=== PATIENT | male | born 1960 | race Caucasian/White ===

== ENCOUNTER 2023-05-07 10:46 | Outpatient (OUT) | payer BC, SELFPAY ==
--- NOTE | 2023-05-07 11:18 | XR_ITS ---
[address] [address] Patient Name: CARMEN OSBORNE MRN: [id number] date: 1960 Sex: M Assigned Patient Location: LAB Current Patient Location: Accession/Order Number: [id number] Exam Date: 05/07/2023 11:15 Report Date: 05/08/2023 07:16 At the request of: JOSÉ MIGUEL CAMARENA Procedure: XR abdomen 1V EXAMINATION: XR abdomen 1V HISTORY: Kidney Stone N20.0 COMPARISON: No relevant comparison available. FINDINGS: KIDNEY/URETER - RIGHT: No visible renal or ureteral calcifications. KIDNEY/URETER - LEFT: 8mm left nephrolith PELVIS: No visible ureteral calcifications. Any visible calcifications favor phleboliths. BOWEL: No abnormal dilation or deviation. BONES: No acute abnormality. Degenerative changes of the spine and hips OTHER: Negative. No abnormal gaseous collections. XR/XR abdomen 1V IMPRESSION: 8 mm left nephrolith Electronically authenticated by: SHELLY NULL Date: 05/08/2023 07:16
[2023-05-07 12:48] LABS: Prostate Specific Antigen Dx 0.77 ng/mL (<=4.00)
== END 2023-05-07 10:47 | disposition home or self-care (01) ==
LOC: LAB 10:51
PROVIDERS: PCP Family Medicine; Visit Provider Urology
DX: N40.1 Benign prostatic hyperplasia with lower urinary tract symptoms (principal); N20.0 Calculus of kidney
CPT/HCPCS: 36415; 74018; 84153

== ENCOUNTER 2023-11-05 09:49 | Outpatient (OUT) | payer BC, SELFPAY ==
--- NOTE | 2023-11-05 09:54 | XR_ITS ---
The [place] [id number] Patient Name: CARMEN OSBORNE MRN: [id number] date: 1960 Sex: M Assigned Patient Location: [facility] Current Patient Location: [facility] Accession/Order Number: [id number] Exam Date: 11/05/2023 10:00 Report Date: 11/05/2023 12:43 At the request of: JOSÉ MIGUEL CAMARENA Procedure: XR abdomen 1V EXAM: XR abdomen 1V HISTORY: Kidney Stone N20.0 COMPARISON: None. TECHNIQUE: AP view of the abdomen. FINDINGS: Nonobstructive bowel gas pattern is noted. There are left renal calculi, largest measuring up to 5 mm. The osseous structures are intact. XR/XR abdomen 1V IMPRESSION: Nonobstructive bowel gas pattern. Left nephrolithiasis. Electronically authenticated by: OSEI JAIMES Date: 11/05/2023 12:43
== END 2023-11-05 09:50 | disposition home or self-care (01) ==
LOC: RAD 09:49
PROVIDERS: PCP Family Medicine; Visit Provider Urology
DX: N20.0 Calculus of kidney (principal)
CPT/HCPCS: 74018

== ENCOUNTER 2024-04-13 09:46 | Outpatient (OUT) | payer BC, SELFPAY ==
--- NOTE | 2024-04-13 | XR_ITS ---
[address] [address] Patient Name: CARMEN OSBORNE MRN: [id number] date: 1960 Sex: M Assigned Patient Location: [facility] Current Patient Location: Accession/Order Number: [id number] Exam Date: 04/13/2024 10:00 Report Date: 04/15/2024 08:59 At the request of: NON-STAFF PHYSICIAN Procedure: XR abdomen 1V EXAMINATION: XR abdomen 1V HISTORY: kidney stone COMPARISON: 11/05/2023 FINDINGS: KIDNEY/URETER - RIGHT: No visible renal or ureteral calcifications. KIDNEY/URETER - LEFT: Nephrolithiasis PELVIS: No visible ureteral calcifications. Any visible calcifications favor phleboliths. BOWEL: No abnormal dilation or deviation. BONES: Mild to moderate degenerative change OTHER: Negative. No abnormal gaseous collections. XR/XR abdomen 1V IMPRESSION: Left nephrolithiasis Electronically authenticated by: SHELLY NULL Date: 04/15/2024 08:59
== END 2024-04-13 09:47 | disposition home or self-care (01) ==
LOC: RAD 09:50
PROVIDERS: PCP Family Medicine
DX: N20.0 Calculus of kidney (principal)
CPT/HCPCS: 74018

== ENCOUNTER 2024-06-11 12:36 | Outpatient (OUT) | payer BC, SELFPAY ==
--- NOTE | 2024-06-11 12:54 | ECG_ITS ---
The [facility] Test Date: 2024-06-11 Pat Name: CARMEN OSBORNE Department: Room: - Gender: Male Typer: : 1960 Requested By: JOSÉ MIGUEL CAMARENA Order Number: [id number] Reading MD: ELIZA PÉREZ Measurements Intervals [place] Rate: 59 P: 32 OR: 193 QRS: -6 QRSD: 87 T: 28 QT: 384 QTc: 381 Interpretive Statements SINUS BRADYCARDIA MODERATE VOLTAGE CRITERIA FOR LVH, CONSIDER NORMAL VARIANT [MEETS CRITERIA IN ONE OF: R(aVL), S(V1), R(V5), R(V5/V6)+S(V1)] Compared to ECG 01/08/2023 15:20:47 Ventricular premature complex(es) no longer present Electronically Signed On 06-11-2024 22:29:20 EDT by EILZA PÉREZ
[2024-06-11 13:50] LABS: BUN Creatinine Ratio 23.1; Calcium 8.8 mg/dL (8.5-10.1); Carbon Dioxide 25.8 mmol/L (21.0-32.0); Chloride 106 mmol/L (98-107); Estimated GFR (African America >60 (>=60 mL/min/1.73m^2); Estimated GFR (Non-African Ame >60 (>=60 mL/min/1.73m^2); Glucose 156 mg/dL (74-106); Potassium 3.8 mmol/L (3.5-5.1); Sodium 141 mmol/L (136-145)
[2024-06-11 14:01] LABS: Basophils Percent Auto 0.5 % (0.2-2.0); Eosinophils Absolute Auto 0.1 10^3/uL (0.0-0.7); Eosinophils Percent Auto 2.1 % (0.9-7.0); Hematocrit 38.7 % (42.0-54.0); Hemoglobin 12.9 g/dL (14.0-18.0); Immature Granulocytes Abs Auto 0.01 10^3/uL (0.00-0.03); Immature Granulocytes Pct Auto 0.2 % (0.0-0.5); Lymphocytes Absolute Auto 1.3 10^3/uL (1.2-3.8); Lymphocytes Percent Auto 23.5 % (20.5-60.0); Mean Corpuscular HGB Conc 33.3 g/dL (29.9-35.2); Mean Corpuscular Hemoglobin 30.4 pg (25.9-34.0); Mean Corpuscular Volume 91.1 fL (80.0-94.0); Mean Platelet Volume 9.1 fL (9.5-13.5); Monocytes Absolute Auto 0.4 10^3/uL (0.3-0.8); Monocytes Percent Auto 6.6 % (1.7-12.0); Neutrophils Absolute Auto 3.8 10^3/uL (1.4-6.5); Neutrophils Percent Auto 67.1 % (43.0-75.0); Platelet Count 165 10^3/uL (150-450); Red Blood Count 4.25 10^6/uL (4.70-6.10); Red Cell Distribution Width 12.5 % (11.0-15.0); White Blood Count 5.6 10^3/uL (4.0-11.0)
[2024-06-11 14:07] LABS: INR 1.01; Partial Thromboplastin Time 27.3 sec (22.3-36.2); Prothrombin Time 10.7 sec (9.0-11.6)
== END 2024-06-11 12:37 | disposition home or self-care (01) ==
LOC: PST 12:38
PROVIDERS: PCP Family Medicine; Visit Provider Urology
DX: Z01.810 Encounter for preprocedural cardiovascular examination (principal); Z01.812 Encounter for preprocedural laboratory examination; N20.0 Calculus of kidney
CPT/HCPCS: 36415; 80048; 85025; 85610; 85730; 93005

== ENCOUNTER 2024-06-12 10:16 | Day surgery (SDC) | payer BC, SELFPAY ==
[2024-06-11 13:19] VITALS: BP 134/72; PULSE 73; TEMP 36.2; O2SAT 95; BMI 30.8
[2024-06-12] VITALS (15 sets, daily range): BP systolic 102–121; BP diastolic 63–79; PULSE 53–74; TEMP 36.1–36.4; O2SAT 89–96; BMI 30.1
--- NOTE | 2024-06-12 | FL_ITS ---
The [address] [address] Patient Name: CARMEN OSBORNE MRN: [id number] date: 1960 Sex: M Assigned Patient [facility] Current Patient Location: Accession/Order Number: [id number] Exam Date: 06/12/2024 11:55 Report Date: 06/16/2024 14:39 At the request of: JOSÉ MIGUEL CAMARENA Procedure: FL fluoroscopy <1hr NON-READ EXAM: FL fluoroscopy <1hr NON-READ HISTORY: TECHNIQUE: FINDINGS: Please see Operative Report. Electronically authenticated by: RADIOLOGIST NO Date: 06/16/2024 14:39
--- OUTSIDE RECORDS SUMMARY | 2024-06-12 10:19 | XMS_ITS | CCD ---
Author Organization [facility] Care Team Providers Care Stave Block Splitter Name Role Phone Anjel Rizzo Unavailable DO Noel Samayoa. Primary Care Provider MD aCrmen Cuello Emergency Provider Sebastián [facility] Regi Schumacher Emergency Provider DANITA, DR NOEL Howell Primary Care Unavailable SHANE ., DR VALDEZ Admitting Unavailable SHANE ., DR VALDEZ Consulting Unavailable SHANE ., DR VALDEZ Attending Unavailable TODD DUBOIS Consulting Unavailable DANITA, DR NOEL Howell Primary Care Unavailable SHNAE ., DR VALDEZ Admitting Unavailable MIGUE ., DR VALDEZ Attending Unavailable MD Arslan Shane Attending Provider DO Noel Samayoa. Primary Care Provider MD Arslan Shane Attending Provider [phone] DO Noel Samayoa. Primary Care Provider MD Arslan Shane Attending Provider Noel Samayoa Unavailable Noel Samayoa. Primary Care Unavailable Arslan Shane Attending Unavailable Arslan Shane Admitting Unavailable Arslan Shane Attending Unavailable Arslan Shane Admitting Unavailable Noel Samayoa. Primary Care Unavailable Arslan Shane Attending Unavailable Arslan Shane Admitting Unavailable Noel Samayoa. Primary Care Unavailable Carmen Cuello Attending Unavailable Carmen Cuello Admitting Unavailable Noel Samayoa. Primary Care Unavailable Noel Samayoa. Primary Care Unavailable Bullcharlotte Regi E Attending Unavailable Sebastián Regi E Admitting Unavailable Arslan SHANE Attending NOEL Tena Admitting Unavailable NOEL SAMAYOA Attending Unavailable Arslan SHANE Attending Unavailable Arslan SHANE Attending Unavailable Cj ZELAYA Attending Unavailable Arslan SHANE Attending Unavailable Allergies Allergy Classification Reported Allergen(s) Allergy Type Date of Onset Reaction(s) Facility (1 source) No Known Medication Allergies; Translations: [No Known Medication Allergies] Propensity to adverse reactions (disorder) [facility] Repository Medications Current Medications Medication Drug Class(es) Dates Sig (Normalized) Sig (Original) ibuprofen 200 mg oral tablet (1 source) Nonsteroidal Anti-inflammatory Drug Start: 06-02-2024 take 1 tablet by mouth every six hours Ibuprofen (Motrin Ib) 200 mg tablet Active 200 MG PO Every 6 hours June 02, 2024 12:00am ketorolac tromethamine 10 mg oral tablet (1 source) Nonsteroidal Anti-inflammatory Drug, Cyclooxygenase Inhibitor Start: 06-02-2024 take 10 mg by mouth every six hours Ketorolac Active 10 MG PO Every 6 hours 40 June 02, 2024 12:00am maximum total duration of 5 days from all oral, intranasal, or parenteral formulations Potassium Bicarb-Citric Acid (Klor-Con/Ef) 25 mEq tablet, effervescent (4 sources) Start: 06-18-2023 Potassium Bicarb-Citric Acid (Klor-Con/Ef) 25 mEq tablet, effervescent Active 25 MEQ PO Twice daily June 18, 2023 12:00am Shingrix 50 MCG (1 source) Start: 02-11-2021 inject 50 ug by intramuscular injection once Shingrix 50 MCG as directed Intramuscular once for 1 days Jan, Active Completed/Discontinued Medications Medication Drug Class(es) Dates Sig (Normalized) Sig (Original) acetaminophen 325 mg / HYDROcodone bitartrate 5 mg oral tablet (20 sources) Opioid Agonist Start: 02-09-2021 End: 06-18-2023 take 1 tablet by mouth every four to six hours Hydrocodone-Acetami nophen Discontinued 1 - 2 TAB PO EVERY 4-6 HOURS 14 12January 06, 2023 June 18, 2023 9:01am take 1 tablet by cam th every six hours HYDROcodone-Acetaminophen 5-325 MG 1 tab let as needed Orally every [address] Jain Active acetaminophen 325 mg / oxyCODONE hydrochloride 5 mg oral tablet (7 sources) Opioid Agonist Start: 01-06-2023 End: 06-18-2023 take 1 tablet by mouth every four to six hours Oxycodone-Acetaminophen (Percocet) 5-325 mg tablet Discontinued 1 - 2 TAB PO EVERY 4-6 HOURS 14 12January 06, 2023 June 18, 2023 9:01am cephalexin 500 mg oral capsule (7 sources) Cephalosporin Antibacterial Start: 01-06-2023 End: 06-18-2023 take 500 mg by mouth twice daily Cephalexin Discontinued 500 MG PO Twice daily 09 03January 06, 2023 12:00am June 18, 2023 9:01am levoFLOXacin 500 mg oral tablet (7 sources) Quinolone Antimicrobial Start: 02-16-2021 End: 01-06-2023 take 500 mg by mouth once daily Levofloxacin Discontinued 500 MG PO Daily 06 05February 16, 2021 12:00am January 06, 2023 3:49pm 24 hr oxybutynin chloride 10 mg extended release oral tablet (7 sources) Cholinergic Muscarinic Antagonist Start: 02-16-2021 End: 01-06-2023 take 1 tablet by mouth three times daily Oxybutynin Chloride (Ditropan Xl) 10 mg tablet extended release 24hr Discontinued 5 MG PO Three times daily February 16, 2021 12:00am January 06, 2023 3:49pm triamcinolone acetonide 40 mg/ml injectable suspension (1 source) Corticosteroid Start: 07-16-2023 Kenalog-40 Jun, 40 mg valACYclovir 500 mg oral tablet (8 sources) Herpesvirus Nucleoside Analog DNA Polymerase Inhibitor, Herpes Simplex Virus Nucleoside Analog DNA Polymerase Inhibitor, Herpes Zoster Virus Nucleoside Analog DNA Polymerase Inhibitor Start: 06-21-2010 End: 01-06-2023 take 500 mg by mouth once daily in the morning Valacyclovir Discontinued 500 MG PO Every morning February 09, 2021 12:00am January 06, 2023 3:49pm Problems Problem Classification Problem Date Documented Date Episodic/Chronic Abdominal pain (2 sources) Unspecified abdominal pain; Translations: [Abdominal pain, other specified site] Onset: 01-08-2023 06-02-2024 Episodic Calculus of urinary tract (14 sources) Ureteric stone; Translations: [Calculus of ureter] Onset: 01-06-2023 01-08-2023 Episodic Disorders of lipid metabolism (2 sources) Pure hypercholesterolemia ; Translations: [Pure hypercholesterolemia , unspecified] Chronic Hyperplasia of prostate (1 source) Benign prostatic hyperplasia with lower urinary tract symptoms; Translations: [BENIGN PROSTATIC HYPERPLASIA W/LUTS] Onset: 01-09-2023 Chronic Immunizations and screening for infectious disease (2 sources) Contact with and (suspected) exposure to other viral communicable diseases; Translations: [Encounter for immunization] Onset: 08-24-2021 Resolved: 08-24-2021 Episodic Joint disorders and dislocations; trauma-related (4 sources) Internal derangement of left knee; Translations: [Unspecified internal derangement of left knee] Chronic Miscellaneous mental health disorders (2 sources) Primary insomnia; Translations: [Primary insomnia] Chronic Other connective tissue disease (1 source) Olecranon bursitis, left elbow Episodic Other ear and sense organ disorders (2 sources) Bilateral tinnitus; Translations: [Tinnitus, bilateral] Episodic Residual codes; unclassified (2 sources) Sleep apnea; Translations: [Sleep apnea, unspecified] 02-04-2024 Chronic Residual codes; unclassified (1 source) Sleep apnea, unspecified; Translations: [Unspecified sleep apnea] 02-04-2024 Chronic Screening and history of mental health and substance abuse codes (1 source) Personal history of nicotine dependence; Translations: [PERSONAL HISTORY OF NICOTINE DEPEND] Onset: 01-09-2023 Episodic Unclassified (1 source) Encounter for preprocedural laboratory examination; Translations: [Encounter for preprocedural laboratory examination] Onset: 06-18-2023 Viral infection (2 sources) Genital herpes simplex; Translations: [Herpesviral infection of urogenital system, unspecified] Chronic Results Test Name Value Interpretation Reference Range Facility XR Abdomen 1 Viewon 06-05-20 24 XR Abdomen 1 View Exam Date/Time: 06/02/2024 10:12 EDT Reason for Exam: left flank pain Report IMPRESSION: Left renal calculus. EXAMINATION/TECHNIQUE: XR Abdomen 1 View HISTORY: Left-sided kidney stone. COMPARISON: CT 05/13/2018. Radiographs 04/30/2018. RESULT: Approximate 8 mm calculus projecting in the region of the left renal pelvis. No distinct calcifications radiographically projecting over the kidneys with portions of the renal shadows obscured. Multiple pelvic phleboliths, grossly unchanged. Nonspecific nondilated bowel gas pattern. Lung bases unremarkable. No acute osseous findings. No other significant abnormality. Ordering Provider: NOEL SAMAYOA FINAL REPORT Dictated: 06/05/2024 11:33 am Todd Nunez MD Signed (Electronic Signature): 06/05/2024 11:33 am Signed by: Todd Nunez MD Transcribed by: ROBERTA Technologist: TEENA Technical Comments Radiation Dose: Ka,r in mGy = na DAP = na Normal [facility] Provider Letteron 11-20-2023 Provider Letter (Inserted Image. Sweta ble to display) November 20, 2023 CARMEN JARAMILLO [address] [place] [address] : 1960 Dear Carmen Jaramillo , We have been trying to reach you with no success. It is important that you return our call regarding your recent imaging results upon receiving this letter. Also, at the time of your call, please provide us with your current information. Thank you for your prompt attention to this matter. Sincerely, [facility] [address] [place] [address] Normal [facility] RAD - MISCon 11-06-2023 [facility] [id number] Normal [facility] [id number] Normal [facility] [id number] Normal [facility] Ambulatory Visit Summaryon 0 10-29-2023 Ambulatory Visit Summary CARMEN JARAMILLO :1960 Visit Date:10/29/2023 Ambulatory Visit Instructions Your Diagnosis BPH with obstruction/lower urinary tract symptoms Kidney stone Tests Performed XR Abdomen 1 View -- Results Pending -- Please visit your patient portal for your results or contact your primary care physician. Your Care Team Attending Physician - Arslan SHANE MD Primary Care Physician - NOEL SAMAYOA DO This Is Your Medications List potassium bicarbonate (K-Effervescent 25 mEq oral tablet, effervescent) Procedures Performed ESWL of kidney (06/26/2023), Cystoscopic removal of ureteric stent (01/23/2023), Cystoscopic laser lithotripsy of ureteric calculus (01/11/2023), Cystoscopic removal of ureteric stent (01/08/2023), Cystoscopic removal of ureteric stent (02/24/2021), ESWL - Extracorporeal shockwave lithotripsy for renal calculus (02/16/2021), Cysto/Lt stent removal (02/23/2016), History of percutaneous nephrolithotomy (02/02/2016), ESWL of kidney, Procedure on knee. Discharge Vitals Heart Rate (Peripheral) 72 Respiratory Rate 16 Blood Pressure 122/82 Height 174 cm Height 69 in Weight 88.5 kg Weight 194.7 lb BMI 29.23 What to do next Scheduled Follow-Up Appointments Sunday. 2024 9:15 AM EDT With: Arslan SHANE MD Where: [facility] Patient Educationon 10-29-19 Patient Education Urology Benign Prostatic Hyperplasia Benign prostatic hyperplasia (BPH) is an enlarged prostate gland that is caused by the normal aging process. The prostate may get bigger as a man gets older. The condition is not caused by cancer. The prostate is a walnut-sized gland that is involved in the production of semen. It is located in front of the rectum and below the bladder. The bladder stores urine. The urethra carries stored urine out of the body. An enlarged prostate can press on the urethra. This can make it harder to pass urine. The buildup of urine in the bladder can cause infection. Back pressure and infection may progress to bladder damage and kidney (renal) failure. What are the causes? This condition is part of the normal aging process. However, not all men develop problems from this condition. If the prostate enlarges away from the urethra, urine flow will not be blocked. If it enlarges toward the urethra and compresses it, there will be problems passing urine. What increases the risk? This condition is more likely to develop in men older than 50 years. What are the signs or symptoms? Symptoms of this condition include: ? Getting up often during the night to urinate. ? Needing to urinate frequently during the day. ? Difficulty starting urine flow. ? Decrease in size and strength of your urine stream. ? Leaking (dribbling) after urinating. ? Inability to pass urine. This needs immediate treatment. ? Inability to completely empty your bladder. ? Pain when you pass urine. This is more common if there is also an infection. ? Urinary tract infection (UTI). How is this diagnosed? This condition is diagnosed based on your medical history, a physical exam, and your symptoms. Tests will also be done, such as: ? A post-void bladder scan. This measures any amount of urine that may remain in your bladder after you finish urinating. ? A digital rectal exam. In a rectal exam, your health care provider checks your prostate by putting a lubricated, gloved finger into your rectum to feel the back of your prostate gland. This exam detects the size of your gland and any abnormal lumps or growths. ? An exam of your urine (urinalysis). ? A prostate specific antigen (PSA) screening. This is a blood test used to screen for prostate cancer. ? An ultrasound. This test uses sound waves to electronically produce a picture of your prostate gland. Your health care provider may refer you to a specialist in kidney and prostate diseases (urologist). How is this treated? Once symptoms begin, your health care provider will monitor your condition (active surveillance or watchful waiting). Treatment for this condition will depend on the severity of your condition. Treatment may include: ? Observation and yearly exams. This may be the only treatment needed if your condition and symptoms are mild. ? Medicines to relieve your symptoms, including: ? Medicines to shrink the prostate. ? Medicines to relax the muscle of the prostate. ? Surgery in severe cases. Surgery may include: ? Prostatectomy. In this procedure, the prostate tissue is removed completely through an open incision or with a laparoscope or robotics. ? Transurethral resection of the prostate (TURP). In this procedure, a tool is inserted through the opening at the tip of the penis (urethra). It is used to cut away tissue of the inner core of the prostate. The pieces are removed through the same opening of the penis. This removes the blockage. ? Transurethral incision (TUIP). In this procedure, small cuts are made in the prostate. This lessens the prostate's pressure on the urethra. ? Transurethral microwave thermotherapy (TUMT). This procedure uses microwaves to create heat. The heat destroys and removes a small amount of prostate tissue. ? Transurethral needle ablation (TUNA). This procedure uses radio frequencies to destroy and remove a small amount of prostate tissue. ? Interstitial laser coagulation (ILC). This procedure uses a laser to destroy and remove a small amount of prostate tissue. ? Transurethral electrovaporization (TUVP). This procedure uses electrodes to destroy and remove a small amount of prostate tissue. ? Prostatic urethral lift. This procedure inserts an implant to push the lobes of the prostate away from the urethra. Follow these instructions at home: ? Take denh-xxc-ssulapf and prescription medicines only as told by your health care provider. ? Monitor your symptoms for any changes. Contact your health care provider with any changes. ? Avoid drinking large amounts of liquid before going to bed or out in public. ? Avoid or reduce how much caffeine or alcohol you drink. ? Give yourself time when you urinate. ? Keep all follow-up visits. This is important. Contact a health care provider if: ? You have unexplained back pain. ? Your symptoms do not get better with treatment. ? You develop side effects from the medicine (more content not included)... Normal [facility] Urology Office/Clinic Noteon 10-29-2023 Urology Office/Clinic Note Chief Complaint S/P ESWL 06/26/23 HPI Staff S/P Lt ESWL 06/26/23 Dx: kidney stone and BPH with obstruction/LUTS. *Potassium Bicarb 25meq BID therapy. PSA 05/07/23- 0.77 Did not get recent KUB. Denies flank pain. Denies symptoms of kidney stone since last procedure in May. Has not passed any stones. Denies pain/burning. Denies all urinary symptoms. No concerns at this time. History of Present Illness Tests Reviewed: Reviewed UA. I have reviewed and verified the staff HPI to be accurate for this encounter. I have reviewed the previous health record information and history for this patient from Dr. Shane There have been no associated fever, chills, flank pain, or blood in the urine. Denies any urinary infections since last encounter. Review of Systems PHQ Score Initial Depression Screen Score: 0 SCORE ROS - Provider Constitutional: denies weight loss, denies hot flashes. Eyes: denies eye problems. Gastrointestinal: denies nausea, denies vomiting. Cardiovascular: denies chest pain or angina. Integumentary: no dryness Musculoskeletal: denies musculoskeletal symptoms. ENMT: denies otolaryngeal symptoms. Respiratory: no shortness of breath. Heme/Lymph: denies easy bleeding tendency, denies easy bruising tendency. Psychiatric: no confusion, no anxiety. Genitourinary: denies dysuria, denies hematuria, denies discharge, denies urinary frequency, denies urinary hesitancy, denies nocturia, denies incontinence, denies genital sores, denies decreased libido, and denies erectile dysfunction. Physical Exam Vitals & Measurements HR: 72(Peripheral) RR: 16 BP: 122/82 HT: 69 in HT: 174 cm WT: 88.5 kg WT: 194.7 lb BMI: 29.23 General Appearance: alert, no distress, well nourished, well developed male. Genitourinary: normal scrotum, normal testes, normal urethra, normal epididymis, normal vas deferens/spermatic cord. Flank Pain: none. Bladder: nonpalpable. Prostate: normal prostate, estimated weight 35 gms, no hard nodule observed. Assessment/Plan 1. BPH with obstruction/lower urinary tract symptoms (N40.1: Benign prostatic hyperplasia with lower urinary tract symptoms) Good stream, patient not currently taking any prostate medications. UA done today is negative for infection. Patient denies any recent infections, feels empty, denies blood. PSA was done 05/07/23 0.77. 2. Kidney stone (N20.0: Calculus of kidney) No recent KUB done. Patient last had KUB done in 05/19/23 showing 8 mm left renal stone. He then had Left ESWL on 06/26/23. Effer K 25meq bid therapy. Discussed with patient again that he needs to increase his water consumption. He needs to drink even when he is not thirsty to get the volume where he needs (10 - 12 bottles) of water per day. Denies drinking soda. He consumes about 4 during the day while at work, 8 per day. Patient to continue Effer K therapy, call office if he needs refills. All questions and concerns were discussed and answered for patient, he acknowledges understanding. Will order KUB now. Patient to be called with results. f/u in 1 year with KUB/PSA Follow-up With When Contact Information MIGUE MCKEON, Arslan Medellin, [facility] [address], [place] [address] [phone] Additional Instructions: Patient Education Benign Prostatic Hyperplasia Kidney Stones, Cvyq-ss-Nqbs ITata, personally scribed for Dr. Shane on 10/29/2023 10:02:55. . Documentation recorded by the scribecha, accurately reflects the services(s) I performed and decisions made by me. Authenticated by Dr. Shane on 10/29/2023 10:04:21. Problem List/Past Medical History Ongoing BMI 29.0-29.9,adult BPH with obstruction/lower urinary tract symptoms Flank pain History of kidney stones Kidney stone Historical No qualifying data Procedure/Surgical History ESWL of kidney (06/26/2023), Cystoscopic removal of ureteric stent (01/23/2023), Cystoscopic laser lithotripsy of ureteric calculus (01/11/2023), Cystoscopic removal of ureteric stent (01/08/2023), Cystoscopic removal of ureteric stent (02/24/2021), ESWL - Extracorporeal shockwave lithotripsy for renal calculus (02/16/2021), Cysto/Lt stent removal (02/23/2016), History of percutaneous nephrolithotomy (02/02/2016), ESWL of kidney, Procedure on knee. Medications K-Effervescent 25 mEq oral tablet, effervescent, 25 mEq= 1 tab(s), Oral, BID, 11 refills Allergies No Known Medication Allergies Social History Alcohol Beer, 3-5 times per week, 07/21/2019 Tobacco Former smoker, quit more than 30 days ago Tobacco Use:. Never Smokeless Tobacco Use:. Cigarettes, Yes, 10/29/2023 Immunizations Vaccine Date Status influenza virus vaccine, inactivated 07/16/2023 Recorded influenza virus vaccine, inactivated 07/17/2022 Recorded zoster vaccine, inactivated 09/18/2021 Recorded SARS-CoV-2 (COVID-19) mRNA BNT-162b2 vax 09/04/2021 Recorded influenza (more content not included)... Normal [facility] Comment on above: Result Comment: Elec tronically Signed By: MIGUE MCKEON, Arslan Zambrano\Date and Time Signed: 10/29/23 10:05 EST RAD - MISCon 07-06-2023 RAD - MISC [id number] Normal [facility] ECG 12-Leadon 06-27-2023 ECG 12-Lead [id number] [facility] Operative Reporton Operative Report [id number] [facility] XR KUBon 06-26-2023 XR KUB [facility] [place] [address] XRay Report Signed Patient: Carmen Jaramillo MR#: [id number] : 1960 Acct:[id number] Age/Sex: 62 / M ADM Date: 06/26/23 Loc: [place] Room: Type: [facility] Attending Dr: Arslan Shane MD Copies to: Arslan Shane MD Ordering Provider: Arslan Shane MD Date of Service: 06/26/23 XR/XR KUB: Ureteral Stone, Kidney stone KUB: CLINICAL INFORMATION: Left-sided lithotripsy today. COMPARISON: KUB 02/13/2021 FINDINGS: Left nephrolithiasis, largest stone measuring 7 mm. A suspected left ureteral calculus is seen measuring 4 mm at the level of L3. Phleboliths are seen within the pelvis. No bowel obstruction or free air. Osseous structures demonstrate degenerative change. XR/XR KUB IMPRESSION: LEFT NEPHROLITHIASIS. SUSPECTED LEFT URETERAL CALCULUS MEASURING 4 MM AT THE LEVEL OF L3. Impression dictated by: Hood Villa Jr., D.O.06/26/2023 9:41 AM Dictation Location: [facility]--12 Transcribed By: [facility] 06/26/23940 Dictated By: Hood Villa Jr, DO 06/26/23939 Signed By: 06/26/23940 Normal [facility] Lab Reportson 06-21-2023 Lab Reports [id number] Normal [facility] Lab Reports [id number] Normal [facility] Activated partial thrombopla stin time (aPTT) in platelet poor plasma by coagulation aOrdered By: Arslan Shane on 06-18-2023 aPTT Coag (PPP) [Time] 27.2 s 25.1-36.5 [facility] Comment on above: A hematocrit value g reater than 55% may lead to inaccurate results in coagulation testing. Patients having hematocrit values >55% require a special collection tube for coagulation studies. Please contact the laboratory at [phone] for redraw instructions. Basic Metabolic Panelon 05-28 Anion gap [Moles/Vol] 7.2 mmol/L Normal 6.0-15.0 [facility] Comment on above: Performed By: #### C UU, ADDONUAPLUS #### [facility] [address] [place] [address] [place] Calcium [Mass/Vol] 8.8 mg/dL Normal 8.6-10.3 [facility] Comment on above: Result Comment: PERF ORMED BY: [facility] [address] [place] [address] PATHOLOGIST ELECTRONIC PREPRESS TECHNICIAN JOS MOYA M.D. Performed By: #### C UU, ADDONUAPLUS #### [facility] [address] [place] [address] [place] Chloride [Moles/Vol] 107 mmol/L Normal 98-107 [facility] Comment on above: Performed By: #### C UU, ADDONUAPLUS #### [facility] [address] [place] [address] [place] CO2 [Moles/Vol] 29.9 mmol/L Normal 21.0-31.0 [facility] Comment on above: Performed By: #### C UJohn ADDONUAPLUS #### [facility] [address] [place] [address] [place] Creatinine [Mass/Vol] 1.02 mg/dL Normal 0.70-1.30 [facility] Comment on above: Performed By: #### C UJohn, ADDONUAPLUS #### [place] [address] [place] GFR/1.73 sq M.predicted MDRD (S/P/Bld) [Vol rate/Area] mL/min/{1.73_m2} Normal [facility] Comment on above: Performed By: #### C UJohn ADDONUAPLUS #### [address] Glucose [Mass/Vol] 99 mg/dL Normal 70-100 [facility] Comment on above: Result Comment: [facility] Glucose Reference Range is dependent on time and content of last meal. Glucose of more than 200 mg/dL in a nonstressed, ambulatory subject supports the diagnosis of Diabetes Mellitus. ADA recommended reference range Performed By: #### C UJohn ADDONUAPLUS #### [place] [address] [place] Potassium [Moles/Vol] 4.1 mmol/L Normal 3.5-5.1 [facility] Comment on above: Performed By: #### C UJohn ADDONUAPLUS #### [place] [address] [place] Sodium [Moles/Vol] 140 mmol/L Normal 136-145 [facility] Comment on above: Performed By: #### C UJohn ADDONUAPLUS #### [place] [address] [place] Urea nitrogen [Mass/Vol] 23 mg/dL Normal 7-25 [facility] Comment on above: Performed By: #### C UJohn ADDONUAPLUS #### [facility] [address] [place] [address] [place] Basophils Auto (Bld) [#/Vol] Ordered By: Arslan Shane on 06-18-2023 Basophils (Bld) [#/Vol] 0.0 10*3/uL 0.0-0.2 [facility] Basophils/100 WBC Auto (Bld) Ordered By: Arslan Shane on 06-18-2023 Basophils/100 WBC (Bld) 0.4 % . [facility] Calcium [Mass/volume] in Ser um or PlasmaOrdered By: Arslan Shane on 06-18-2023 Calcium [Mass/Vol] 8.8 mg/dL 8.6-10.3 [facility] Carbon dioxide, total [Moles /volume] in Serum or PlasmaOrdered By: Arslan Shane on 06-18-2023 CO2 [Moles/Vol] 29.9 mmol/L 21.0-31.0 [facility] Chloride [Moles/volume] in S renny or PlasmaOrdered By: Arslan Shane on 06-18-2023 Chloride [Moles/Vol] 107 mmol/L 98-107 [facility] Complete Blood Count Auto Di ffon 06-18-2023 Basophils (Bld) [#/Vol] 0.0 10*3/uL Normal 0.0-0.2 [facility] Comment on above: Result Comment: PERF ORMED BY: [place] [address] PATHOLOGIST ELECTRONIC PREPRESS TECHNICIAN JOS MOYA M.D. Performed By: #### B MP, PT, PTT, CBC #### [facility] [address] Basophils/100 WBC (Bld) 0.4 % Normal . [facility] Comment on above: Performed By: #### B MP, PT, PTT, CBC #### [facility] [address] Eosinophils (Bld) [#/Vol] 0.1 10*3/uL Normal 0.0-0.45 [facility] Comment on above: Performed By: #### B MP, PT, PTT, CBC #### [facility] [address] Eosinophils/100 WBC (Bld) 2.3 % Normal . [facility] Comment on above: Performed By: #### B MP, PT, PTT, CBC #### [facility] [address] Erythrocyte distribution width (RBC) [Ratio] 13.5 % Normal 12.0-14.8 [facility] Comment on above: Performed By: #### B MP, PT, PTT, CBC #### [address] Hematocrit (Bld) [Volume fraction] 38.3 % Low 38.8-50.0 [facility] Comment on above: Performed By: #### B MP, PT, PTT, CBC #### [address] Hemoglobin (Bld) [Mass/Vol] 13.1 g/dL Normal 13.0-17.0 [facility] Comment on above: Performed By: #### B MP, PT, PTT, CBC #### [address] Lymphocytes (Bld) [#/Vol] 1.1 10*3/uL Normal 1.00-4.8 [facility] Comment on above: Performed By: #### B MP, PT, PTT, CBC #### [address] Lymphocytes/100 WBC (Bld) 23.7 % Normal . [facility] Comment on above: Performed By: #### B MP, PT, PTT, CBC #### [address] MCH (RBC) [Entitic mass] 30.0 pg Normal 27.5-35.2 [facility] Comment on above: Performed By: #### B MP, PT, PTT, CBC #### [address] MCV (RBC) [Entitic vol] 87.9 fL Normal 83.5-101 [facility] Comment on above: Performed By: #### B MP, PT, PTT, CBC #### [address] Mean Corpuscular HGB Conc 34.1 g/dL Normal 32.5-35.6 [facility] Comment on above: Performed By: #### B MP, PT, PTT, CBC #### [address] Monocytes (Bld) [#/Vol] 0.3 10*3/uL Normal 0.0-0.8 [facility] Comment on above: Performed By: #### B MP, PT, PTT, CBC #### [address] Monocytes/100 WBC (Bld) 7.1 % Normal . [facility] Comment on above: Performed By: #### B MP, PT, PTT, CBC #### [address] Neutrophils (Bld) [#/Vol] 3.2 10*3/uL Normal 1.8-7.7 [facility] Comment on above: Performed By: #### B MP, PT, PTT, CBC #### [address] Neutrophils/100 WBC (Bld) 66.5 % Normal . [facility] Comment on above: Performed By: #### B MP, PT, PTT, CBC #### [address] NRBC% 0.0 /100{WBC} Normal 0-0.5 [facility] Comment on above: Performed By: #### B MP, PT, PTT, CBC #### [address] Platelet mean volume (Bld) [Entitic vol] 7.0 fL Normal 6.6-10.1 [facility] Comment on above: Performed By: #### B MP, PT, PTT, CBC #### [address] Platelets (Bld) [#/Vol] 149 10*3/uL Low 150-450 [facility] Comment on above: Performed By: #### B MP, PT, PTT, CBC #### [facility] [address] RBC (Bld) [#/Vol] 4.36 10*6/uL Normal 3.90-5.60 [facility] Comment on above: Performed By: #### B MP, PT, PTT, CBC #### [facility] [address] WBC (Bld) [#/Vol] 4.8 10*3/uL Normal 4.1-10.5 [facility] Comment on above: Performed By: #### B MP, PT, PTT, CBC #### [facility] [address] Creatinine [Mass/volume] in Serum or PlasmaOrdered By: Arslan Shane on 06-18-2023 Creatinine [Mass/Vol] 1.02 mg/dL 0.70-1.30 [facility] ECG 12 lead ECGon 06-18-2023 ECG 12 lead ECG [facility] [place] [address] [place] [address] Electrocardiograph Report Signed Patient: Carmen Jaramillo MR#: [id number] : 1960 Acct:[id number] Age/Sex: 62 / M ADM Date: 06/18/23 Loc: Room: Type: [facility] Attending Dr: Arslan Shane MD Ordering Provider: Arslan Shane MD Date of Service: 06/18/23 ECG/ECG 12 lead ECG: pre-op urology surgery Copies to: Test Reason : Blood Pressure : / mmHG Vent. Rate : 058 BPM Atrial Rate : 058 BPM P-R Int : 184 ms QRS Dur : 084 ms QT Int : 364 ms P-R-T Axes : 040 004 021 degrees QTc Int : 357 ms Sinus bradycardia Otherwise normal ECG When compared with ECG of 09-FEB-2021 08:49, premature ventricular complexes are no longer present Confirmed by SANDY VYAS DO ([id number]) on 06/18/2023 5:27:54 PM Referred By: MIGUE Electronically Signed By:SANDY VYAS DO Transcribed By: OLGA Signed By Sandy Vyas DO 06/18 1728 Normal [facility] Eosinophils Auto (Bld) [#/Vo l]Ordered By: Arslan Shane on 06-18-2023 Eosinophils (Bld) [#/Vol] 0.1 10*3/uL 0.0-0.45 [facility] Eosinophils/100 WBC Auto (Bl d)Ordered By: Arslan Shane on 06-18-2023 Eosinophils/100 WBC (Bld) 2.3 % . [facility] Erythrocyte distribution wid th Auto (RBC) [Ratio]Ordered By: Arslan Shane on 06-18-2023 Erythrocyte distribution width (RBC) [Ratio] 13.5 % 12.0-14.8 [facility] Glucose [Mass/volume] in Ser um or PlasmaOrdered By: Arslan Shane on 06-18-2023 Glucose [Mass/Vol] 99 mg/dL 70-100 [facility] Comment on above: ADA recommended refe rence rangeRandom Glucose Reference Range is dependent on time and content of last meal. Glucose of more than 200 mg/dL in a nonstressed, ambulatory subject supports the diagnosis of Diabetes Mellitus. Hematocrit Auto (Bld) [Volum e fraction]Ordered By: Arslan Shane on 06-18-2023 Hematocrit (Bld) [Volume fraction] 38.3 % 38.8-50.0 [facility] Hemoglobin [Mass/volume] in BloodOrdered By: Arslan Shane on 06-18-2023 Hemoglobin (Bld) [Mass/Vol] 13.1 g/dL 13.0-17.0 [facility] INR in Platelet poor plasma by Coagulation assayOrdered By: Arslan Shane on 06-18-2023 INR Coag (PPP) [Relative time] 1.0 {INR} [facility] Comment on above: INR Therapeutic Rang e A) Pre- and Peroperative OAT started two weeks before surgery. NOT HIP SURGERY: 1.5 - 2.5 HIP SURGERY: 2 - 3B) Primary and secondary prevention of venous THROMBOSIS: 2 - 3C) Active venous thrombosis, pulmonary embolismand prevention of recurrent venous thrombosis: 2 - 3D) Prevention of arterial thromboembolismincluding patients with mechanical heart valves: 3 - 4.5 Leukocytes [#/volume] correc juwan for nucleated erythrocytes in Blood by Automated counOrdered By: Arslan Shane on 06-18-2023 WBC corrected for nucl RBC Auto (Bld) [#/Vol] 4.8 10*3/uL 4.1-10.5 [facility] Lymphocytes Auto (Bld) [#/Vo l]Ordered By: Arslan Shane on 06-18-2023 Lymphocytes (Bld) [#/Vol] 1.1 10*3/uL 1.00-4.8 [facility] Lymphocytes/100 WBC Auto (Bl d)Ordered By: Arslan Shane on 06-18-2023 Lymphocytes/100 WBC (Bld) 23.7 % . [facility] MCH Auto (RBC) [Entitic mass ]Ordered By: Arslan Shane on 06-18-2023 MCH (RBC) [Entitic mass] 30.0 pg 27.5-35.2 [facility] MCHC Auto (RBC) [Mass/Vol]Or dered By: Arslan Shane on 06-18-2023 MCHC (RBC) [Mass/Vol] 34.1 g/dL 32.5-35.6 [facility] MCV Auto (RBC) [Entitic vol] Ordered By: Arslan Shane on 06-18-2023 MCV (RBC) [Entitic vol] 87.9 fL 83.5-101 [facility] Monocytes Auto (Bld) [#/Vol] Ordered By: Arslan Shane on 06-18-2023 Monocytes (Bld) [#/Vol] 0.3 10*3/uL 0.0-0.8 [facility] Monocytes/100 WBC Auto (Bld) Ordered By: Arslan Shane on 06-18-2023 Monocytes/100 WBC (Bld) 7.1 % . [facility] Neutrophils Auto (Bld) [#/Vo l]Ordered By: Arslan Shane on 06-18-2023 Neutrophils (Bld) [#/Vol] 3.2 10*3/uL 1.8-7.7 [facility] Neutrophils/100 WBC Auto (Bl d)Ordered By: Arslan Shane on 06-18-2023 Neutrophils/100 WBC (Bld) 66.5 % . [facility] No Panel InformationOrdered By: Arslan Shane on 06-18-2023 Estimated GFR (CKD-EPI) > 60.0 mL/Min [facility] Creatinine Clearance (Chem N/A [facility] Nucleated erythrocytes [Pres ence] in Blood by Automated countOrdered By: Arslan Shane on 06-18-2023 Nucleated RBC Auto Ql (Bld) 0.0 /100{WBC} 0-0.5 [facility] Partial Thromboplastin Timeo n 06-18-2023 aPTT Coag (Bld) [Time] 27.2 s Normal 25.1-36.5 [facility] Comment on above: Result Comment: A he matocrit value greater than 55% may lead to inaccurate results in coagulation testing. Patients having hematocrit values >55% require a special collection tube for coagulation studies. Please contact the laboratory at [phone] for redraw instructions. PERFORMED BY: [place] [address] PATHOLOGIST ELECTRONIC PREPRESS TECHNICIAN JOS MOYA M.D. Performed By: #### C NANETTE HENRY #### [address] Platelet mean volume Auto (B ld) [Entitic vol]Ordered By: Arslan Shane on 06-18-2023 Platelet mean volume (Bld) [Entitic vol] 7.0 fL 6.6-10.1 [facility] Platelets Auto (Bld) [#/Vol] Ordered By: Arslan Shane on 06-18-2023 Platelets (Bld) [#/Vol] 149 10*3/uL 150-450 [facility] Potassium [Moles/volume] in Serum or PlasmaOrdered By: Arslan Shane on 06-18-2023 Potassium [Moles/Vol] 4.1 mmol/L 3.5-5.1 [facility] Prothrombin Time INRon 06-18 INR Coag (PPP) [Relative time] 1.0 {INR} Normal [facility] Comment on above: Result Comment: INR Therapeutic Range A) Pre- and Peroperative OAT started two weeks before surgery. NOT HIP SURGERY: 1.5 - 2.5 HIP SURGERY: 2 - 3 B) Primary and secondary prevention of venous THROMBOSIS: 2 - 3 C) Active venous thrombosis, pulmonary embolism and prevention of recurrent venous thrombosis: 2 - 3 D) Prevention of arterial thromboembolism including patients with mechanical heart valves: 3 - 4.5 Performed By: #### C UU ADDONUAPLUS #### [facility] [address] [place] [id number] [facility] PT Coag (PPP) [Time] 12.4 s Normal 9.0-12.9 [facility] Comment on above: Result Comment: A he matocrit value greater than 55% may lead to inaccurate results in coagulation testing. Patients having hematocrit values >55% require a special collection tube for coagulation studies. Please contact the laboratory at [phone] for redraw instructions. Performed By: #### C UUOSMANYONUAPLUS #### [facility] [address] [place] [id number] [facility] Prothrombin time (PT)Ordered By: Arslan Shane on 06-18-2023 PT Coag (PPP) [Time] 12.4 s 9.0-12.9 [facility] Comment on above: A hematocrit value g reater than 55% may lead to inaccurate results in coagulation testing. Patients having hematocrit values >55% require a special collection tube for coagulation studies. Please contact the laboratory at [phone] for redraw instructions. RBC Auto (Bld) [#/Vol]Ordere d By: Arslan Shane on 06-18-2023 RBC (Bld) [#/Vol] 4.36 10*6/uL 3.90-5.60 [facility] Serum or plasma anion gap de terminationOrdered By: Arslan Shane on 06-18-2023 Anion gap [Moles/Vol] 7.2 mmol/L 6.0-15.0 [facility] Sodium [Moles/volume] in Ser um or PlasmaOrdered By: Arslan Shane on 06-18-2023 Sodium [Moles/Vol] 140 mmol/L 136-145 [facility] Urea nitrogen [Mass/volume] in Serum or PlasmaOrdered By: Arslan Shane on 06-18-2023 Urea nitrogen [Mass/Vol] 23 mg/dL 7-25 [facility] WBC Auto (Bld) [#/Vol]Ordere d By: Arslan Shane on 06-18-2023 WBC (Bld) [#/Vol] 4.8 10*3/uL 4.1-10.5 [facility] 24 Hr Urine Uric Acidon 02-26 Uric Acid, 24 Hr Urine 675.0 Normal 182.4-936. 8 [facility] Comment on above: Order Comment: URINE VOLUME (MILLILTERS): 1350 Result Comment: Perf ormed at: - [facility] [address] [id number] Exterminator Helper: Sunil Merino PhD, Phone: [phone] Performed By: #### C ITRIC UR, PHOS 24HRU, OXAL 24HRU, URIC 24HRU, U24 CA, MAG 24HRU ####[facility] ,#### U24 NA, CREA24, COL T V ####[place] [address] [address] Urine Uric Acid 50.0 mg/dL Normal Not Estab. [facility] Comment on above: Order Comment: URINE VOLUME (MILLILTERS): 1350 Performed By: #### C ITRIC UR, PHOS 24HRU, OXAL 24HRU, URIC 24HRU, U24 CA, MAG 24HRU ####[facility] ,#### U24 NA, CREA24, COL T V ####[facility] 24 hour urine sodium measure ment (moles/time)Ordered By: Arslan Shane on 03-26-2023 Sodium (24H U) [Moles/Time] 119 mmol/24 40-220 [facility] 24 hour urine uric acid jaciel urement (mass/time)Ordered By: Arslan Shane on 03-26-2023 Urate (24H U) [Mass/Time] 675.0 mg/24 hr 182.4-936. 8 [facility] Comment on above: Performed at: CB - L [id number] [place], [place] [id number] Director: Sunil Merino PhD, Phone: [phone] Blood Urea Nitrogenon 2022 Urea nitrogen [Mass/Vol] 17 mg/dL Normal 7-25 [facility] Comment on above: Performed By: #### C UU, ADDONUAPLUS #### [facility] [address] biopsyOrdered By: Arslan Shane on 03-26-2023 CT biopsy 24 Hours [facility] Calciumon 03-26-2023 Calcium [Mass/Vol] 8.9 mg/dL Normal 8.6-10.3 [facility] Comment on above: Performed By: #### C UU, ADDONUAPLUS #### [facility] [address] [place] [address] [place] Calcium [Mass/time] in 24 ho ur UrineOrdered By: Arslan Shane on 03-26-2023 Calcium (24H U) [Mass/Time] 259 mg/24 hr 0-320 [facility] Calcium [Mass/volume] in 24 hour UrineOrdered By: Arslan Shane on 03-26-2023 Calcium (24H U) [Mass/Vol] 19.2 mg/dL Not Estab. [facility] Calcium [Mass/volume] in Ser um or PlasmaOrdered By: Arslan Shane on 03-26-2023 Calcium [Mass/Vol] 8.9 mg/dL 8.6-10.3 [facility] Calcium, 24Hr Urineon 2022 Calcium, Urine 19.2 mg/dL Normal Not Estab. [facility] Comment on above: Order Comment: URINE VOLUME (MILLILTERS): 1350 Performed By: #### C ITRIC UR, PHOS 24HRU, OXAL 24HRU, URIC 24HRU, U24 CA, MAG 24HRU ####[facility] ,#### U24 NA, CREA24, COL T V ####[facility] [id number] [place] [address] [place] Calcium, Urine 24 Hr 259 Normal 0-320 [facility] Comment on above: Order Comment: URINE VOLUME (MILLILTERS): 1350 Performed By: #### C ITRIC UR, PHOS 24HRU, OXAL 24HRU, URIC 24HRU, U24 CA, MAG 24HRU ####[facility] ,#### U24 NA, CREA24, COL T V ####[place] [address] [place] [address] [facility] Carbon dioxide, total [Moles /volume] in Serum or PlasmaOrdered By: Arslan Shane on 03-26-2023 CO2 [Moles/Vol] 31.0 mmol/L 21.0-31.0 [facility] Chloride [Moles/volume] in S renny or PlasmaOrdered By: Arslan Shane on 03-26-2023 Chloride [Moles/Vol] 104 mmol/L 98-107 [facility] Citric Acid, Urine, 24 Houro n 03-26-2023 Citric Acid, Urine 290 mg/L Normal Undefined [facility] Comment on above: Order Comment: URINE VOLUME (MILLILTERS): 1350 Performed By: #### C ITRIC UR, PHOS 24HRU, OXAL 24HRU, URIC 24HRU, U24 CA, MAG 24HRU ####[facility] ,#### U24 NA, CREA24, COL T V ####[place] [address] [place] [address] [facility] Citric Acid, Urine, 24HR 392 Normal 320-1240 [facility] Comment on above: Order Comment: URINE VOLUME (MILLILTERS): 1350 Result Comment: This test was developed and its performance characteristics determined by [employer]. It has not been cleared or approved by the Food and Drug Administration. Performed at: [address] [id number] Exterminator Helper: Akilah Mcfarlane MD, Phone: [phone] PERFORMED BY: [facility] [address] [place] [address] PATHOLOGIST ELECTRONIC PREPRESS TECHNICIAN JOS MOYA M.D. Performed By: #### C ITRIC UR, PHOS 24HRU, OXAL 24HRU, URIC 24HRU, U24 CA, MAG 24HRU ####[facility] ,#### U24 NA, CREA24, COL T V ####[address] Erma Time and Vol 24 hr uron 03-26-2023 Total Volume, Urine 1350 Normal [facility] Comment on above: Order Comment: URINE COLLECTION TIME (HRS): 24 URINE VOLUME (MILLILTERS): 1350 Result Comment: PERF ORMED BY: [place] [address] PATHOLOGIST ELECTRONIC PREPRESS TECHNICIAN JOS MOYA M.D. Performed By: #### C ITRIC UR, PHOS 24HRU, OXAL 24HRU, URIC 24HRU, U24 CA, MAG 24HRU ####[facility] ,#### U24 NA, CREA24, COL T V ####[address] Urine Collection Time 24 Normal [facility] Comment on above: Order Comment: URINE COLLECTION TIME (HRS): 24 URINE VOLUME (MILLILTERS): 1350 Performed By: #### C ITRIC UR, PHOS 24HRU, OXAL 24HRU, URIC 24HRU, U24 CA, MAG 24HRU ####[facility] ,#### U24 NA, CREA24, COL T V ####[address] Creatinineon 03-26-2023 Creatinine [Mass/Vol] 0.93 mg/dL Normal 0.70-1.30 [facility] Comment on above: Performed By: #### C JUNIOR HENRYPLUS #### [address] GFR/1.73 sq M.predicted MDRD (S/P/Bld) [Vol rate/Area] mL/min/{1.73_m2} Normal [facility] Comment on above: Performed By: #### C UU, ADDONUAPLUS #### [address] Creatinine [Mass/volume] in Serum or PlasmaOrdered By: Arslan Shane on 03-26-2023 Creatinine [Mass/Vol] 0.93 mg/dL 0.70-1.30 [facility] Creatinine [Mass/volume] in UrineOrdered By: Arslan Shane on 03-26-2023 Creatinine (U) [Mass/Vol] 129.00 mg/dL 14.00-26.0 0 [facility] Creatinine, 24 Hr Urineon Creatinine 24 Hour, Urine 1.74 g/24_hr Normal 1.00-2.09 [facility] Comment on above: Order Comment: URINE COLLECTION TIME (HRS): 24 URINE VOLUME (MILLILTERS): 1350 Performed By: #### C UU, ADDONUAPLUS #### [address] Creatinine, Urine 129.00 mg/dL High 14.00-26.0 0 [facility] Comment on above: Order Comment: URINE COLLECTION TIME (HRS): 24 URINE VOLUME (MILLILTERS): 1350 Performed By: #### C UU, ADDONUAPLUS #### [place] [address] [place] Electrolyteson 03-26-2023 Anion gap [Moles/Vol] 8.0 mmol/L Normal 6.0-15.0 [facility] Comment on above: Performed By: #### C UU, ADDONUAPLUS #### [place] [address] [place] Chloride [Moles/Vol] 104 mmol/L Normal 98-107 [facility] Comment on above: Performed By: #### C UU, ADDONUAPLUS #### [facility] [address] [place] [address] [place] CO2 [Moles/Vol] 31.0 mmol/L Normal 21.0-31.0 [facility] Comment on above: Performed By: #### C UU, ADDONUAPLUS #### [facility] [address] [place] [address] [place] Potassium [Moles/Vol] 4.0 mmol/L Normal 3.5-5.1 [facility] Comment on above: Performed By: #### C UU, ADDONUAPLUS #### [facility] [address] Sodium [Moles/Vol] 139 mmol/L Normal 136-145 [facility] Comment on above: Performed By: #### C UU, ADDONUAPLUS #### [facility] [address] Magnesium [Mass/time] in 24 hour UrineOrdered By: Arslan Shane on 03-26-2023 Magnesium (24H U) [Mass/Time] 155.3 mg/24 hr 12.0-293.0 [facility] Magnesium [Mass/volume] in U rineOrdered By: Arslan Shane on 03-26-2023 Magnesium (U) [Mass/Vol] 11.5 mg/dL Not Estab. [facility] Magnesium, Urine 24Hron 02-26 Magnesium, 24Hr Urine 155.3 Normal 12.0-293.0 [facility] Comment on above: Order Comment: URINE VOLUME (MILLILTERS): 1350 Performed By: #### C ITRIC UR, PHOS 24HRU, OXAL 24HRU, URIC 24HRU, U24 CA, MAG 24HRU ####[facility] ,#### U24 NA, CREA24, COL T V ####[facility] [id number] Magnesium, Urine 11.5 mg/dL Normal Not Estab. [facility] Comment on above: Order Comment: URINE VOLUME (MILLILTERS): 1350 Performed By: #### C ITRIC UR, PHOS 24HRU, OXAL 24HRU, URIC 24HRU, U24 CA, MAG 24HRU ####[facility] ,#### U24 NA, CREA24, COL T V ####[facility] [id number] No Panel InformationOrdered By: Arslan Shane on 03-26-2023 Estimated GFR (CKD-EPI) > 60.0 mL/Min [facility] Creatinine Clearance (Chem N/A [facility] Urine Citric Acid 290 mg/L Undefined [facility] Urine Citric Acid 24 Hour 392 mg/24 hr 320-1240 [facility] Comment on above: This test was develo ped and its performance characteristicsdetermined by [employer]. It has not been cleared orapproved by the Food and Drug Administration.Performed at: [employer] [facility] [id number] Director: Akilah Mcfarlane MD, Phone: [phone] Urine Creatinine 24 Hour 1.74 g/24 hr 1.00-2.09 [facility] Oxalate [Mass/time] in 24 ho ur UrineOrdered By: Arslan Shane on 03-26-2023 Oxalate (24H U) [Mass/Time] 70 mg/24 hr [facility] Comment on above: Performed at: [employer] [facility] [address] [id number] Director: Akilah Mcfarlane MD, Phone: [phone] Oxalate [Mass/volume] in Uri neOrdered By: Arslan Shane on 03-26-2023 Oxalate (U) [Mass/Vol] 52 mg/L [facility] Oxalate, Quant, 24Hr Urineon 03-26-2023 Oxalates, Urine 52 mg/L Normal [facility] Comment on above: Order Comment: URINE VOLUME (MILLILTERS): 1350 Performed By: #### C ITRIC UR, PHOS 24HRU, OXAL 24HRU, URIC 24HRU, U24 CA, MAG 24HRU ####[facility] ,#### U24 NA, CREA24, COL T V ####[facility] [id number] [place] [address] [facility] Oxalates, Urine 24Hr [address] Comment on above: Order Comment: URINE VOLUME (MILLILTERS): 1350 Result Comment: Perf ormed at: [facility] [address] [id number] Exterminator Helper: Akilah Mcfarlane MD, Phone: [phone] Performed By: #### C ITRIC UR, PHOS 24HRU, OXAL 24HRU, URIC 24HRU, U24 CA, MAG 24HRU ####[facility] ,#### U24 NA, CREA24, COL T V ####[facility] [id number] [place] [id number] [place] Parathyrin.intact [Mass/volu me] in Serum or PlasmaOrdered By: Arslan Shane on 03-26-2023 Parathyrin.intact [Mass/Vol] 48.1 pg/mL [facility] Parathyroid Hormone Intacton 03-26-2023 Parathyroid Hormone Intact 48.1 pg/mL Normal [facility] Comment on above: Result Comment: PERF ORMED BY: [place] [address] PATHOLOGIST ELECTRONIC PREPRESS TECHNICIAN JOS MOYA M.D. Performed By: #### C UU, ADDONUAPLUS #### [facility] [address] [place] [address] Phosphate [Mass/time] in 24 hour UrineOrdered By: Arslan Shane on 03-26-2023 Phosphate (24H U) [Mass/Time] 1512 mg/24 hr [phone] [facility] Phosphate [Mass/volume] in U rineOrdered By: Arslan Shane on 03-26-2023 Phosphate (U) [Mass/Vol] 112.0 mg/dL Not Estab. [facility] Phosphorus, 24Hr Urineon Phosphorous, Urine 112.0 mg/dL Normal Not Estab. [facility] Comment on above: Order Comment: URINE VOLUME (MILLILTERS): 1350 Performed By: #### C ITRIC UR, PHOS 24HRU, OXAL 24HRU, URIC 24HRU, U24 CA, MAG 24HRU ####[facility] ,#### U24 NA, CREA24, COL T V ####[facility] [id number] [place] [address] [place] Phosphorus, Urine 24Hr 1512 High [phone] [facility] Comment on above: Order Comment: URINE VOLUME (MILLILTERS): 1350 Performed By: #### C ITRIC UR, PHOS 24HRU, OXAL 24HRU, URIC 24HRU, U24 CA, MAG 24HRU ####[facility] ,#### U24 NA, CREA24, COL T V ####[facility] [id number] [facility] Potassium [Moles/volume] in Serum or PlasmaOrdered By: Arslan Shane on 03-26-2023 Potassium [Moles/Vol] 4.0 mmol/L 3.5-5.1 [facility] Serum or plasma anion gap de terminationOrdered By: Arslan Shane on 03-26-2023 Anion gap [Moles/Vol] 8.0 mmol/L 6.0-15.0 [facility] Sodium [Moles/volume] in Ser um or PlasmaOrdered By: Arslan Shane on 03-26-2023 Sodium [Moles/Vol] 139 mmol/L 136-145 [facility] Sodium [Moles/volume] in Uri neOrdered By: Arslan Shane on 03-26-2023 Sodium (U) [Moles/Vol] 88.0 mmol/L Normal [facility] Comment on above: No reference range e stablished Order Comment: URINE COLLECTION TIME (HRS): 24 URINE VOLUME (MILLILTERS): 1350 Result Comment: No r eference range established Performed By: #### C ITRIC UR, PHOS 24HRU, OXAL 24HRU, URIC 24HRU, U24 CA, MAG 24HRU ####[facility] ,#### U24 NA, CREA24, COL T V ####[facility] [id number] [place] Sodium, 24 Hr Urineon 2022 Sodium 24 Hour Urine 119 Normal 40-220 [facility] Comment on above: Order Comment: URINE COLLECTION TIME (HRS): 24 URINE VOLUME (MILLILTERS): 1350 Performed By: #### C ITRIC UR, PHOS 24HRU, OXAL 24HRU, URIC 24HRU, U24 CA, MAG 24HRU ####[facility] ,#### U24 NA, CREA24, COL T V ####[facility] [id number] [place] [address] [place] Urate [Mass/volume] in Serum or PlasmaOrdered By: Arslan Shane on 03-26-2023 Urate [Mass/Vol] 6.5 mg/dL 4.4-7.6 [facility] Urea nitrogen [Mass/volume] in Serum or PlasmaOrdered By: Arslan Shane on 03-26-2023 Urea nitrogen [Mass/Vol] 17 mg/dL 7 [facility] Uric Acidon 03-26-2023 Urate [Mass/Vol] 6.5 mg/dL Normal 4.4-7.6 [facility] Comment on above: Result Comment: PERF ORMED BY: [facility] [address] [place] [address] PATHOLOGIST ELECTRONIC PREPRESS TECHNICIAN JOS MOYA M.D. Performed By: #### C UU, ADDONUAPLUS #### [facility] [address] Urine uric acid measurement (mass/volume)Ordered By: Arslan Shane on 03-26-2023 Urate (U) [Mass/Vol] 50.0 mg/dL Not Estab. [facility] Urine volume measurementOrde red By: Arslan Shane on 03-26-2023 Specimen volume (U) 1350 ml [facility] Alanine aminotransferase [En zymatic activity/volume] in Serum or PlasmaOrdered By: Regi Bullimore on 01-08-2023 ALT [Catalytic activity/Vol] 16 U/L 7-52 [facility] Albumin [Mass/volume] in Ser um or Plasma by Bromocresol green (BCG) dye binding methoOrdered By: Regi Bullimore on 01-08-2023 Albumin BCG dye [Mass/Vol] 4.0 g/dL 3.5-5.7 [facility] Alkaline phosphatase [Enzyma tic activity/volume] in Serum or PlasmaOrdered By: Regi Bullimore on 01-08-2023 ALP [Catalytic activity/Vol] 54 U/L 34-104 [facility] Aspartate aminotransferase [ Enzymatic activity/volume] in Serum or PlasmaOrdered By: Regi Crewsimore on 01-08-2023 AST [Catalytic activity/Vol] 13 U/L 13-39 [facility] Automated erythrocytes count in urine sediment (number/area)Ordered By: Regi Bullimore on 01-08-2023 RBC Auto (Urine sed) [#/Area] Innumerable [HPF] 0-4 [facility] Automated leukocytes count i n urine sediment (number/area)Ordered By: Regi Bullimore on 01-08-2023 WBC Auto (Urine sed) [#/Area] 20-49 [HPF] 0-4 [facility] Basophils Auto (Bld) [#/Vol] Ordered By: Regidiane Crewsimore on 01-08-2023 Basophils (Bld) [#/Vol] 0.0 10*3/uL 0.0-0.2 [facility] Basophils/100 WBC Auto (Bld) Ordered By: Regidiane Deleonore on 01-08-2023 Basophils/100 WBC (Bld) 0.3 % . [facility] Bilirubin Test strip Ql (U)O rdered By: Regidiane Lowery on 01-08-2023 Bilirubin Ql (U) Negative Negative [facility] Bilirubin.total [Mass/volume ] in Serum or PlasmaOrdered By: Regi Deleonore on 01-08-2023 Bilirubin [Mass/Vol] 0.7 mg/dL 0.3-1.0 [facility] Calcium [Mass/volume] in Ser um or PlasmaOrdered By: Regi Crewsimore on 01-08-2023 Calcium [Mass/Vol] 8.4 mg/dL 8.6-10.3 [facility] Carbon dioxide, total [Moles /volume] in Serum or PlasmaOrdered By: Regi Crewsimore on 01-08-2023 CO2 [Moles/Vol] 29.5 mmol/L 21.0-31.0 [facility] Chloride [Moles/volume] in S renny or PlasmaOrdered By: Regi Crewsimore on 01-08-2023 Chloride [Moles/Vol] 104 mmol/L 98-107 [facility] Color Auto (U)Ordered By: Sona Lowery on 01-08-2023 Color (U) Dark yellow Yellow [facility] Complete Blood Count Auto Di ffon 01-08-2023 Basophils (Bld) [#/Vol] 0.0 10*3/uL Normal 0.0-0.2 [facility] Comment on above: Result Comment: PERF ORMED BY: [place] [address] PATHOLOGIST ELECTRONIC PREPRESS TECHNICIAN JOS MOYA M.D. Performed By: #### C BC, CMP #### [address] Basophils/100 WBC (Bld) 0.3 % Normal . [facility] Comment on above: Performed By: #### C BC, CMP #### [address] Eosinophils (Bld) [#/Vol] 0.1 10*3/uL Normal 0.0-0.45 [facility] Comment on above: Performed By: #### C BC, CMP #### [place] [address] [place] Eosinophils/100 WBC (Bld) 2.4 % Normal . [facility] Comment on above: Performed By: #### C BC, CMP #### [address] Erythrocyte distribution width (RBC) [Ratio] 13.1 % Normal 12.0-14.8 [facility] Comment on above: Performed By: #### C BC, CMP #### [place] [address] [place] Hematocrit (Bld) [Volume fraction] 40.0 % Normal 38.8-50.0 [facility] Comment on above: Performed By: #### C BC, CMP #### [address] Hemoglobin (Bld) [Mass/Vol] 13.5 g/dL Normal 13.0-17.0 [facility] Comment on above: Performed By: #### C BC, CMP #### [facility] [address] [place] [address] [place] Lymphocytes (Bld) [#/Vol] 1.0 10*3/uL Normal 1.00-4.8 [facility] Comment on above: Performed By: #### C BC, CMP #### [facility] [address] Lymphocytes/100 WBC (Bld) 19.0 % Normal . [facility] Comment on above: Performed By: #### C BC, CMP #### [facility] [address] MCH (RBC) [Entitic mass] 29.3 pg Normal 27.5-35.2 [facility] Comment on above: Performed By: #### C BC, CMP #### [facility] [address] MCV (RBC) [Entitic vol] 86.9 fL Normal 83.5-101 [facility] Comment on above: Performed By: #### C BC, CMP #### [facility] [address] Mean Corpuscular HGB Conc 33.7 g/dL Normal 32.5-35.6 [facility] Comment on above: Performed By: #### C BC, CMP #### [facility] [address] [place] [address] [place] Monocytes (Bld) [#/Vol] 0.4 10*3/uL Normal 0.0-0.8 [facility] Comment on above: Performed By: #### C BC, CMP #### [facility] [address] [place] [address] [place] Monocytes/100 WBC (Bld) 17.49 % Normal 0.00-20.00 [facility] Comment on above: Performed By: #### C BC, CMP #### [facility] [address] [place] [address] [place] Monocytes/100 WBC (Bld) 6.9 % Normal . [facility] Comment on above: Performed By: #### C BC, CMP #### [facility] [address] Neutrophils (Bld) [#/Vol] 3.8 10*3/uL Normal 1.8-7.7 [facility] Comment on above: Performed By: #### C BC, CMP #### [facility] [address] [place] [address] [place] Neutrophils/100 WBC (Bld) 71.4 % Normal . [facility] Comment on above: Performed By: #### C BC, CMP #### [facility] [address] NRBC% 0.1 /100{WBC} Normal 0-0.5 [facility] Comment on above: Performed By: #### C PHYLLIS, CMP #### [address] Platelet mean volume (Bld) [Entitic vol] 7.4 fL Normal 6.6-10.1 [facility] Comment on above: Performed By: #### C PHYLLIS, CMP #### [address] Platelets (Bld) [#/Vol] 149 10*3/uL Low 150-450 [facility] Comment on above: Performed By: #### C PHYLLIS, CMP #### [address] RBC (Bld) [#/Vol] 4.60 10*6/uL Normal 3.90-5.60 [facility] Comment on above: Performed By: #### C BC, CMP #### [place] [address] [place] WBC (Bld) [#/Vol] 5.3 10*3/uL Normal 4.1-10.5 [facility] Comment on above: Performed By: #### C BC, CMP #### [address] Comprehensive Metabolic Pane tiff 01-08-2023 Albumin [Mass/Vol] 4.0 g/dL Normal 3.5-5.7 [facility] Comment on above: Performed By: #### C BC, CMP #### [facility] [address] Albumin/Globulin [Mass ratio] 1.7 {ratio} Normal [facility] Comment on above: Performed By: #### C BC, CMP #### [facility] [address] ALP [Catalytic activity/Vol] 54 U/L Normal 34-104 [facility] Comment on above: Performed By: #### C BC, CMP #### [facility] [address] ALT [Catalytic activity/Vol] 16 U/L Normal 7-52 [facility] Comment on above: Performed By: #### C BC, CMP #### [address] Anion gap [Moles/Vol] 7.6 mmol/L Normal 6.0-15.0 [facility] Comment on above: Performed By: #### C BC, CMP #### [address] AST [Catalytic activity/Vol] 13 U/L Normal 13-39 [facility] Comment on above: Performed By: #### C BC, CMP #### [address] Bilirubin [Mass/Vol] 0.7 mg/dL Normal 0.3-1.0 [facility] Comment on above: Performed By: #### C BC, CMP #### [address] Calcium [Mass/Vol] 8.4 mg/dL Low 8.6-10.3 [facility] Comment on above: Performed By: #### C BC, CMP #### [place] [address] [place] Chloride [Moles/Vol] 104 mmol/L Normal 98-107 [facility] Comment on above: Performed By: #### C BC, CMP #### [facility] [address] [place] [address] [place] CO2 [Moles/Vol] 29.5 mmol/L Normal 21.0-31.0 [facility] Comment on above: Performed By: #### C BC, CMP #### [facility] [address] Creatinine [Mass/Vol] 0.91 mg/dL Normal 0.70-1.30 [facility] Comment on above: Performed By: #### C BC, CMP #### [facility] [address] Creatinine Clr Calc Pharmacy 95.04 [facility] Comment on above: Result Comment: PERF ORMED BY: [place] [address] PATHOLOGIST ELECTRONIC PREPRESS TECHNICIAN JOS MOYA M.D. Performed By: #### C BC, CMP #### [address] GFR/1.73 sq M.predicted MDRD (S/P/Bld) [Vol rate/Area] mL/min/{1.73_m2} [facility] Comment on above: Performed By: #### C BC, CMP #### [facility] [address] Globulin (S) [Mass/Vol] 2.4 g/dL [facility] Comment on above: Performed By: #### C BC, CMP #### [facility] [address] Glucose [Mass/Vol] 100 mg/dL Normal 70-100 [facility] Comment on above: Result Comment: [facility] Glucose Reference Range is dependent on time and content of last meal. Glucose of more than 200 mg/dL in a nonstressed, ambulatory subject supports the diagnosis of Diabetes Mellitus. ADA recommended reference range Performed By: #### C BC, CMP #### [facility] [address] Potassium [Moles/Vol] 4.1 mmol/L Normal 3.5-5.1 [facility] Comment on above: Performed By: #### C BC, CMP #### [facility] [address] [place] [address] [place] Protein [Mass/Vol] 6.4 g/dL Normal 6.4-8.9 [facility] Comment on above: Performed By: #### C BC, CMP #### [facility] [address] Sodium [Moles/Vol] 137 mmol/L Normal 136-145 [facility] Comment on above: Performed By: #### C BC, CMP #### [facility] [address] [place] [address] [place] Urea nitrogen [Mass/Vol] 17 mg/dL Normal 7-25 [facility] Comment on above: Performed By: #### C BC, CMP #### [address] Creatinine [Mass/volume] in Serum or PlasmaOrdered By: Regi Lowery on 01-08-2023 Creatinine [Mass/Vol] 0.91 mg/dL 0.70-1.30 [facility] Dipstick and Microscopicon 0 01-08-2023 Appearance (U) Turbid Critically abnormal Clear [facility] Comment on above: Order Comment: Name Collection Type:: Clean-Voided Midstream Performed By: #### C UU, ADDONUAPLUS #### [place] [address] [place] Bacteria,Urine None Seen Normal None Seen [facility] Comment on above: Order Comment: Name Collection Type:: Clean-Voided Midstream Performed By: #### C UU, ADDONUAPLUS #### [facility] [address] [place] [address] [place] Bilirubin,Urine Negative Normal Negative [facility] Comment on above: Order Comment: Name Collection Type:: Clean-Voided Midstream Performed By: #### C UU, ADDONUAPLUS #### [facility] [address] [place], [place] [id number] [place] Color (U) Dark Yellow Critically abnormal Yellow [facility] Comment on above: Order Comment: Name Collection Type:: Clean-Voided Midstream Performed By: #### C UU, ADDONUAPLUS #### [facility] [address] Glucose Ql (U) Normal Normal Normal [facility] Comment on above: Order Comment: Name Collection Type:: Clean-Voided Midstream Performed By: #### C UU, ADDONUAPLUS #### [facility] [address] [place] [address] [place] Hyaline Casts,Urine 0-8 Normal 0-8 [facility] Comment on above: Order Comment: Name Collection Type:: Clean-Voided Midstream Result Comment: PERF ORMED BY: [place] [address] PATHOLOGIST ELECTRONIC PREPRESS TECHNICIAN JOS MOYA M.D. Performed By: #### C UU, ADDONUAPLUS #### [facility] [address] [place] [address] Ketones Ql (U) Trace High Negative [facility] Comment on above: Order Comment: Name Collection Type:: Clean-Voided Midstream Performed By: #### C UU, ADDONUAPLUS #### [facility] [address] [place] [address] Leukocyte esterase Test strip Ql (U) 2+ High Negative [facility] Comment on above: Order Comment: Name Collection Type:: Clean-Voided Midstream Performed By: #### C UU, ADDONUAPLUS #### [facility] [address] [place] [address] [place] Nitrite,Urine Negative Normal Negative [facility] Comment on above: Order Comment: Name Collection Type:: Clean-Voided Midstream Performed By: #### C UU, ADDONUAPLUS #### [facility] [address] [place] [address] [place] Occult Blood,Urine 3+ High Negative [facility] Comment on above: Order Comment: Name Collection Type:: Clean-Voided Midstream Result Comment: PERF ORMED BY: [place] [address] PATHOLOGIST ELECTRONIC PREPRESS TECHNICIAN JOS MOYA M.D. Performed By: #### C UU, ADDONUAPLUS #### [address] pH (U) 6.0 [pH] Normal 5.0-9.0 [facility] Comment on above: Order Comment: Name Collection Type:: Clean-Voided Midstream Performed By: #### C UU, ADDONUAPLUS #### [address] Protein (U) [Mass/Vol] 100 mg/dL High Negative [facility] Comment on above: Order Comment: Name Collection Type:: Clean-Voided Midstream Performed By: #### C UU, ADDONUAPLUS #### [address] RBC,Urine Innumerable High 0-4 [facility] Comment on above: Order Comment: Name Collection Type:: Clean-Voided Midstream Performed By: #### C UU, ADDONUAPLUS #### [address] Specificy [place],Urine 1.029 Normal 1.001-1.03 0 [facility] Comment on above: Order Comment: Name Collection Type:: Clean-Voided Midstream Performed By: #### C UU, ADDONUAPLUS #### [address] Squamous Epithelial Cell,Urine 3-4 High 0-2 [facility] Comment on above: Order Comment: Name Collection Type:: Clean-Voided Midstream Performed By: #### C UU, ADDONUAPLUS #### [address] Urobilinogen,Urine Normal Normal Normal [facility] Comment on above: Order Comment: Name Collection Type:: Clean-Voided Midstream Performed By: #### C UU, ADDONUAPLUS #### [address] WBC,Urine 20-49 High 0-4 [facility] Comment on above: Order Comment: Name Collection Type:: Clean-Voided Midstream Performed By: #### C UU, ADDONUAPLUS #### [facility] [address] Eosinophils Auto (Bld) [#/Vo l]Ordered By: Regidiane Lowery on 01-08-2023 Eosinophils (Bld) [#/Vol] 0.1 10*3/uL 0.0-0.45 [facility] Eosinophils/100 WBC Auto (Bl d)Ordered By: Regidiane Lowery on 01-08-2023 Eosinophils/100 WBC (Bld) 2.4 % . [facility] Erythrocyte distribution wid th Auto (RBC) [Ratio]Ordered By: [facility] on 01-08-2023 Erythrocyte distribution width (RBC) [Ratio] 13.1 % 12.0-14.8 [facility] Globulin Calc (S) [Mass/Vol] Ordered By: [facility] on 01-08-2023 Globulin (S) [Mass/Vol] 2.4 g/dL [facility] Glucose [Mass/volume] in Ser um or PlasmaOrdered By: [facility] on 01-08-2023 Glucose [Mass/Vol] 100 mg/dL 70-100 [facility] Comment on above: ADA recommended refe rence rangeRandom Glucose Reference Range is dependent on time and content of last meal. Glucose of more than 200 mg/dL in a nonstressed, ambulatory subject supports the diagnosis of Diabetes Mellitus. Hematocrit Auto (Bld) [Volum e fraction]Ordered By: [facility] on 01-08-2023 Hematocrit (Bld) [Volume fraction] 40.0 % 38.8-50.0 [facility] Hemoglobin [Mass/volume] in BloodOrdered By: [facility] on 01-08-2023 Hemoglobin (Bld) [Mass/Vol] 13.5 g/dL 13.0-17.0 [facility] Ketones Auto test strip (U) [Mass/Vol]Ordered By: [facility] on 01-08-2023 Ketones (U) [Mass/Vol] Trace Negative [facility] - UrinalysisOrder ed By: Regi Lowery on 01-08-2023 Hyaline casts LM Ql (Urine sed) 0-8 [LPF] 0-8 [facility] Leukocytes [#/volume] correc juwan for nucleated erythrocytes in Blood by Automated counOrdered By: Regi Bullimore on 01-08-2023 WBC corrected for nucl RBC Auto (Bld) [#/Vol] 5.3 10*3/uL 4.1-10.5 [facility] Lymphocytes Auto (Bld) [#/Vo l]Ordered By: Regi Bullimore on 01-08-2023 Lymphocytes (Bld) [#/Vol] 1.0 10*3/uL 1.00-4.8 [facility] Lymphocytes/100 WBC Auto (Bl d)Ordered By: Regi Bullimore on 01-08-2023 Lymphocytes/100 WBC (Bld) 19.0 % . [facility] MCH Auto (RBC) [Entitic mass ]Ordered By: Regi Bullimore on 01-08-2023 MCH (RBC) [Entitic mass] 29.3 pg 27.5-35.2 [facility] MCHC Auto (RBC) [Mass/Vol]Or dered By: Regi Bullimore on 01-08-2023 MCHC (RBC) [Mass/Vol] 33.7 g/dL 32.5-35.6 [facility] MCV Auto (RBC) [Entitic vol] Ordered By: Regi Bullimore on 01-08-2023 MCV (RBC) [Entitic vol] 86.9 fL 83.5-101 [facility] Monocyte distribution width [Entitic volume] in Blood by AutomatedOrdered By: Regi Bullimore on 01-08-2023 Monocyte distribution width Auto (Bld) [Entitic vol] 17.49 % 0.00-20.00 [facility] Monocytes Auto (Bld) [#/Vol] Ordered By: Regi Bullimore on 01-08-2023 Monocytes (Bld) [#/Vol] 0.4 10*3/uL 0.0-0.8 [facility] Monocytes/100 WBC Auto (Bld) Ordered By: Regi Bullimore on 01-08-2023 Monocytes/100 WBC (Bld) 6.9 % . [facility] Neutrophils Auto (Bld) [#/Vo l]Ordered By: Regi Lowery on 01-08-2023 Neutrophils (Bld) [#/Vol] 3.8 10*3/uL 1.8-7.7 [facility] Neutrophils/100 WBC Auto (Bl d)Ordered By: Regi Lowery on 01-08-2023 Neutrophils/100 WBC (Bld) 71.4 % . [facility] Nitrite Test strip Ql (U)Ord ered By: Regi Lowery on 01-08-2023 Nitrite Ql (U) Negative Negative [facility] No Panel InformationOrdered By: [facility] Sebastián on 01-08-2023 Estimated GFR (CKD-EPI) > 60.0 mL/Min [facility] Creatinine Clearance (Chem 95.04 [facility] Nucleated erythrocytes [Pres ence] in Blood by Automated countOrdered By: [facility] Sebastián on 01-08-2023 Nucleated RBC Auto Ql (Bld) 0.1 /100{WBC} 0-0.5 [facility] PROTIMEon 01-08-2023 INR Coag (PPP) [Relative time] 0.98 {INR} Normal [facility] Comment on above: Performed By: #### P T, PTT #### [facility] [address] [place] [address] Dr. Yary Vera INR GUIDELINES SEE BELOW Normal [facility] Comment on above: Result Comment: MURTAZA RED INR: 2.0 - 3.0 CONDITIONS NOT LISTED BELOW 2.5 - 3.5 FOR PROSTHETIC HEART VALVE REPLACEMENT 2.5 - 3.5 RECURRENT THROMBOSIS Performed By: #### P T, PTT #### [facility] [address] [address] [address] Yary Vera PT Coag (PPP) [Time] 10.4 s Normal 9.0-11.6 [facility] Comment on above: Performed By: #### P T, PTT #### [facility] [address] [place] [address] Dr. Yary Vera PTTon 01-08-2023 aPTT Coag (Bld) [Time] 26.5 s Normal 22.3-36.2 [facility] Comment on above: Performed By: #### P T, PTT #### [facility] [address] [address] [address] Yary Vera Platelet mean volume Auto (B ld) [Entitic vol]Ordered By: Regi Bullimore on 01-08-2023 Platelet mean volume (Bld) [Entitic vol] 7.4 fL 6.6-10.1 [facility] Platelets Auto (Bld) [#/Vol] Ordered By: Regi Bullimore on 01-08-2023 Platelets (Bld) [#/Vol] 149 10*3/uL 150-450 [facility] Potassium [Moles/volume] in Serum or PlasmaOrdered By: Regi Bullimore on 01-08-2023 Potassium [Moles/Vol] 4.1 mmol/L 3.5-5.1 [facility] Protein Auto test strip (U) [Mass/Vol]Ordered By: Regi Bullimore on 01-08-2023 Protein (U) [Mass/Vol] 100 mg/dL Negative [facility] Protein [Mass/volume] in Ser um or PlasmaOrdered By: Regi Bullimore on 01-08-2023 Protein [Mass/Vol] 6.4 g/dL 6.4-8.9 [facility] RBC Auto (Bld) [#/Vol]Ordere d By: Regi Bullimore on 01-08-2023 RBC (Bld) [#/Vol] 4.60 10*6/uL 3.90-5.60 [facility] Serum or plasma albumin/glob ulin mass ratioOrdered By: Regi Bullimore on 01-08-2023 Albumin/Globulin [Mass ratio] 1.7 {ratio} [facility] Serum or plasma anion gap de terminationOrdered By: Regi Bullimore on 01-08-2023 Anion gap [Moles/Vol] 7.6 mmol/L 6.0-15.0 [facility] Sodium [Moles/volume] in Ser um or PlasmaOrdered By: Regi Bullimore on 01-08-2023 Sodium [Moles/Vol] 137 mmol/L 136-145 [facility] Specific gravity Auto test s trip (U) [Rel density]Ordered By: Regidiane Lowery on 01-08-2023 Specific gravity (U) [Rel density] 1.029 1.001-1.03 0 [facility] Squamous epithelial cells de tection in urine sediment by light microscopyOrdered By: Regidiane Lowery on 01-08-2023 Epithelial cells.squamous LM Ql (Urine sed) 3-4 [HPF] 0-2 [facility] Urea nitrogen [Mass/volume] in Serum or PlasmaOrdered By: Regi Lowery on 01-08-2023 Urea nitrogen [Mass/Vol] 17 mg/dL 7-25 [facility] Urine Cultureon 01-08-2023 Bacteria identified Cx Nom (U) No Growth 2 Days PERFORMED BY: [place] [address] PATHOLOGIST ELECTRONIC PREPRESS TECHNICIAN JOS MOYA M.D. [facility] Comment on above: Performed By: #### C UU, ADDONUAPLUS #### [address] Urine bacteria detection by automated methodOrdered By: Regi Sebastián on 01-08-2023 Bacteria Auto Ql (U) None seen None Seen [facility] Urine clarity by refractomet ry automatedOrdered By: Regi Sebastián on 01-08-2023 Clarity Refractometry automated (U) Turbid Clear [facility] Urine culture routineOrdered By: Regi Lowery on 01-08-2023 Bacteria identified Cx Nom (U) No Growth 2 Days [facility] Urine glucose measurement by automated test strip (mass/volume)Ordered By: Regi Lowery on 01-08-2023 Glucose Auto test strip (U) [Mass/Vol] Normal mg/dL Normal [facility] Urine hemoglobin detection b y automated test stripOrdered By: Regi Lowery on 01-08-2023 Hemoglobin Auto test strip Ql (U) 3+ Negative [facility] Urine leukocyte esterase det ection by automated test stripOrdered By: Regidiane Lowery on 01-08-2023 Leukocyte esterase Auto test strip Ql (U) 2+ Negative [facility] Urobilinogen Auto test strip (U) [Mass/Vol]Ordered By: Regi Sebastián on 01-08-2023 Urobilinogen (U) [Mass/Vol] Normal mg/dL Normal [facility] WBC Auto (Bld) [#/Vol]Ordere d By: Regi Deleonore on 01-08-2023 WBC (Bld) [#/Vol] 5.3 10*3/uL 4.1-10.5 [facility] pH Auto test strip (U)Ordere d By: Regi Sebastián on 01-08-2023 pH (U) 6.0 [pH] 5.0-9.0 [facility] Automated erythrocytes count in urine sediment (number/area)Ordered By: Carmen Cuello on 01-06-2023 RBC Auto (Urine sed) [#/Area] Innumerable [HPF] 0-4 [facility] Automated leukocytes count i n urine sediment (number/area)Ordered By: Carmen Cuello on 01-06-2023 WBC Auto (Urine sed) [#/Area] 10-19 [HPF] 0-4 [facility] Bilirubin Test strip Ql (U)O rdered By: Carmen Cuello on 01-06-2023 Bilirubin Ql (U) Negative Negative [facility] CT abdomen pelvis wo conon 0 01-06-2023 CT abdomen pelvis wo con [facility] [place] [address] CT Scan Report Signed Patient: Carmen Jaramillo MR#: [id number] : 1960 Acct:[id number] Age/Sex: 62 / M ADM Date: 01/06/23 Loc: ER Room: Type: [facility] ER Attending Dr: Copies to: Carmen Cuello MD Ordering Provider: Carmen Cuello MD Date of Service: 01/06/23 CT/CT abdomen pelvis wo con: abdominal pain CT abdomen pelvis wo con 01/06/2023 4:10 PM SIGNS AND SYMPTOMS: Left lower quadrant and left flank pain with hematuria TECHNIQUE: Multidetector ct axial images of the abdomen and pelvis were obtained without IV contrast. Multiplanar reformats were performed and reviewed to further define anatomy and possible pathology. CT was performed with one or more of the following dose reduction techniques: Automated exposure control, adjustment of the mA and/or kV according to patient size, or use of iterative reconstruction technique. COMPARISON: 02/14/2021 FINDINGS: Lower Chest: Atherosclerotic changes are noted in the coronary arteries and thoracic aorta. ABDOMEN: Liver: Within normal limits. Bile Ducts: Normal caliber. Gallbladder: Stones dependently layering the gallbladder lumen. Pancreas: Within normal limits. Spleen: Calcified granulomas are present in the spleen. Adrenals: Within normal limits. Kidneys: Nonobstructing stones are noted in the left renal collecting system. There is no hydronephrosis. There is a large stone in the left renal pelvis measuring 13 mm in greatest dimension. Pelvis: Reproductive Organs: No pelvic masses. Ureters: Within normal limits. Bladder: Within normal limits. Bowel: There are a few uncomplicated colonic diverticula. There is a normal appendix in the right lower quadrant. Mesenteric Lymph Nodes: No enlarged mesenteric lymph nodes. Peritoneum: No ascites or free air, no fluid collection. Vessels: Atherosclerotic changes are noted in the abdominal aorta and its branches. Retroperitoneum: Within normal limits. Abdominal Wall: Within normal limits. Bones: Degenerative changes are noted in the thoracolumbar spine. There are bilateral L5 pars defects with grade 1 spondylolisthesis. Degenerative changes are noted in the sacroiliac joints. CT/CT abdomen pelvis wo con IMPRESSION: Nonobstructing stones are noted in the left renal collecting system. There is no hydronephrosis. There is a large stone in the left renal pelvis measuring 13 mm in greatest dimension. This is slightly larger when compared to the prior study. Uncomplicated colonic diverticula are noted. Additional chronic findings are noted, as above. Impression dictated by: Rudy Gutierrez M.D.01/06/2023 4:40 PM Dictation Location: [place] [address] Transcribed By: [facility] 01/06/23 1640 Dictated By: Rudy Gutierrez II, MD 01/06/23 1633 Signed By: 01/06/23 1640 Normal [facility] Color Auto (U)Ordered By: Kemi Cuello on 01-06-2023 Color (U) Yellow Yellow [facility] Dipstick and Microscopicon 0 01-06-2023 Appearance (U) Cloudy Critically abnormal Clear [facility] Comment on above: Order Comment: Name Collection Type:: Clean-Voided Midstream Performed By: #### C UU, ADDONUAPLUS #### [facility] [address] [place] [address] [place] Bacteria,Urine None Seen Normal None Seen [facility] Comment on above: Order Comment: Name Collection Type:: Clean-Voided Midstream Performed By: #### C UU, ADDONUAPLUS #### [facility] [address] [place] [address] [place] Bilirubin,Urine Negative Normal Negative [facility] Comment on above: Order Comment: Name Collection Type:: Clean-Voided Midstream Performed By: #### C UU, ADDONUAPLUS #### [address] Color (U) Yellow Normal Yellow [facility] Comment on above: Order Comment: Name Collection Type:: Clean-Voided Midstream Performed By: #### C UU, ADDONUAPLUS #### [address] Glucose Ql (U) Normal Normal Normal [facility] Comment on above: Order Comment: Name Collection Type:: Clean-Voided Midstream Performed By: #### C UU, ADDONUAPLUS #### [address] Hyaline Casts,Urine 0-8 Normal 0-8 [facility] Comment on above: Order Comment: Name Collection Type:: Clean-Voided Midstream Result Comment: PERF ORMED BY: [place] [address] PATHOLOGIST ELECTRONIC PREPRESS TECHNICIAN JOS MOYA M.D. Performed By: #### C UU, ADDONUAPLUS #### [facility] [address] [place] [address] [place] Ketones Ql (U) Trace High Negative [facility] Comment on above: Order Comment: Name Collection Type:: Clean-Voided Midstream Performed By: #### C UU, ADDONUAPLUS #### [facility] [address] [place] [address] [place] Leukocyte esterase Test strip Ql (U) 2+ High Negative [facility] Comment on above: Order Comment: Name Collection Type:: Clean-Voided Midstream Performed By: #### C UU, ADDONUAPLUS #### [address] Nitrite,Urine Negative Normal Negative [facility] Comment on above: Order Comment: Name Collection Type:: Clean-Voided Midstream Performed By: #### C UU, ADDONUAPLUS #### [address] Occult Blood,Urine 3+ High Negative [facility] Comment on above: Order Comment: Name Collection Type:: Clean-Voided Midstream Result Comment: PERF ORMED BY: [place] [address] PATHOLOGIST ELECTRONIC [employer] TECHNICIAN JOS MOYA M.D. Performed By: #### C UU, ADDONUAPLUS #### [address] pH (U) 5.5 [pH] Normal 5.0-9.0 [facility] Comment on above: Order Comment: Name Collection Type:: Clean-Voided Midstream Performed By: #### C UU, ADDONUAPLUS #### [address] Protein (U) [Mass/Vol] 100 mg/dL High Negative [facility] Comment on above: Order Comment: Name Collection Type:: Clean-Voided Midstream Performed By: #### C UU, ADDONUAPLUS #### [place] [address] [place] RBC,Urine Innumerable High 0-4 [facility] Comment on above: Order Comment: Name Collection Type:: Clean-Voided Midstream Performed By: #### C UU, ADDONUAPLUS #### [address] Specificy [place],Urine 1.016 Normal 1.001-1.03 0 [facility] Comment on above: Order Comment: Name Collection Type:: Clean-Voided Midstream Performed By: #### C UU, ADDONUAPLUS #### [facility] [address] [place] [address] Squamous Epithelial Cell,Urine 1-2 Normal 0-2 [facility] Comment on above: Order Comment: Name Collection Type:: Clean-Voided Midstream Performed By: #### C UU, ADDONUAPLUS #### [facility] [address] [place] [address] Urobilinogen,Urine Normal Normal Normal [facility] Comment on above: Order Comment: Name Collection Type:: Clean-Voided Midstream Performed By: #### C UU, ADDONUAPLUS #### [address] WBC,Urine 10-19 High 0-4 [facility] Comment on above: Order Comment: Name Collection Type:: Clean-Voided Midstream Performed By: #### C UU, ADDONUAPLUS #### [address] Ketones Auto test strip (U) [Mass/Vol]Ordered By: Carmen Cuello on 01-06-2023 Ketones (U) [Mass/Vol] Trace Negative [facility] Laboratory - UrinalysisOrder ed By: Carmen Cuello on 01-06-2023 Hyaline casts LM Ql (Urine sed) 0-8 [LPF] 0-8 [facility] Nitrite Test strip Ql (U)Ord ered By: Carmen Cuello on 01-06-2023 Nitrite Ql (U) Negative Negative [facility] Protein Auto test strip (U) [Mass/Vol]Ordered By: Carmen Cuello on 01-06-2023 Protein (U) [Mass/Vol] 100 mg/dL Negative [facility] Specific gravity Auto test s trip (U) [Rel density]Ordered By: Carmen Cuello on 01-06-2023 Specific gravity (U) [Rel density] 1.016 1.001-1.03 0 [facility] Squamous epithelial cells de tection in urine sediment by light microscopyOrdered By: Carmen Cuello on 01-06-2023 Epithelial cells.squamous LM Ql (Urine sed) 1-2 [HPF] 0-2 [facility] Urine Cultureon 01-06-2023 Bacteria identified Cx Nom (U) <9,000 colonies/ml mixed bacterial skin contaminants 2 Days PERFORMED BY: [place] [address] PATHOLOGIST E[employer]IC [employer] TECHNICIAN JOS MOYA M.D. Normal [facility] Comment on above: Performed By: #### C UU, ADDONUAPLUS #### [address] Urine bacteria detection by automated methodOrdered By: Carmen Cuello on 01-06-2023 Bacteria Auto Ql (U) None seen None Seen [facility] Urine clarity by refractomet ry automatedOrdered By: Carmen Cuello on 01-06-2023 Clarity Refractometry automated (U) Cloudy Clear [facility] Urine culture routineOrdered By: Carmen Cuello on 01-06-2023 Bacteria identified Cx Nom (U) 2 Days [facility] Urine glucose measurement by automated test strip (mass/volume)Ordered By: Carmen Cuello on 01-06-2023 Glucose Auto test strip (U) [Mass/Vol] Normal mg/dL Normal [facility] Urine hemoglobin detection b y automated test stripOrdered By: Carmen Cuello on 01-06-2023 Hemoglobin Auto test strip Ql (U) 3+ Negative [facility] Urine leukocyte esterase det ection by automated test stripOrdered By: Carmen Cuello on 01-06-2023 Leukocyte esterase Auto test strip Ql (U) 2+ Negative [facility] Urobilinogen Auto test strip (U) [Mass/Vol]Ordered By: Carmen Cuello on 01-06-2023 Urobilinogen (U) [Mass/Vol] Normal mg/dL Normal [facility] pH Auto test strip (U)Ordere d By: Carmen Cuello on 01-06-2023 pH (U) 5.5 [pH] 5.0-9.0 [facility] XR Abdomen Single View (KUB) *on 10-10-2021 XR Abdomen Single View (KUB)* CLINICAL HISTORY: History of renal calcifications. History of lithotripsy. Currently asymptomatic. COMPARISON: None. RESULT: No distinct calcifications radiographically projecting over either kidney or the expected course of the ureters. Pelvic phleboliths. Nonspecific nondilated bowel gas pattern. No acute osseous findings. Degenerative changes. IMPRESSION: No distinct collecting system calcifications radiographically. Report reported and signed by Todd Nunez on 10/10/2021 1118 Normal [facility] [employer] Worker COVID Quick Testingon 2020 Result Negative [employer] Other Vital Signs Date Time Vital Sign Value Performing Clinician Facility 06-02-2024 08:52-0400 Body height 173.35 cm [facility] 06-02-2024 08:52-0400 Body mass index (BMI) [Ratio] 30.7 kg/m2 [facility] 06-02-2024 08:52-0400 Body temperature 97.9 [degF] [facility] 06-02-2024 08:52-0400 Body weight 92.53 kg [facility] 06-02-2024 08:52-0400 Diastolic blood pressure 64 mm[Hg] [facility] 06-02-2024 08:52-0400 Heart rate 74 /min [facility] 06-02-2024 08:52-0400 Respiratory rate 18 /min [facility] 06-02-2024 08:52-0400 SaO2% (BldA) [Mass fraction] 95 % [facility] 06-02-2024 08:52-0400 Systolic blood pressure 124 mm[Hg] [facility] 02-04-2024 08:23-0400 Body height 173.35 cm [facility] 02-04-2024 08:23-0400 Body mass index (BMI) [Ratio] 30.3 kg/m2 [facility] 02-04-2024 08:23-0400 Body temperature 98.4 [degF] [facility] 02-04-2024 08:23-0400 Body weight 91.17 kg [facility] 02-04-2024 08:23-0400 Diastolic blood pressure 72 mm[Hg] [facility] 02-04-2024 08:23-0400 Heart rate 70 /min [facility] 02-04-2024 08:23-0400 Respiratory rate 18 /min [facility] 02-04-2024 08:23-0400 SaO2% (BldA) [Mass fraction] 96 % [facility] 02-04-2024 08:23-0400 Systolic blood pressure 122 mm[Hg] [facility] 07-16-2023 11:15-0500 Body height 173.35 cm Noel Danita Other [employer] Other 07-16-2023 11:15-0500 Body mass index (BMI) [Ratio] 30.03 kg/m2 Noel Danita Other [employer] Other 07-16-2023 11:15-0500 Body temperature 97.1 [degF] Noel Danita Other [employer] Other 07-16-2023 11:15-0500 Body weight 90.27 kg Noel Danita Other [employer] Other 07-16-2023 11:15-0500 Diastolic blood pressure 70 mm[Hg] Noel Danita Other [employer] Other 07-16-2023 11:15-0500 Respiratory rate 18 /min Noel Danita Other [employer] Other 07-16-2023 11:15-0500 SaO2% (BldA) [Mass fraction] 98 % Noel Danita Other [employer] Other 07-16-2023 11:15-0500 Systolic blood pressure 120 mm[Hg] Noel Danita Other [employer] Other 06-26-2023 09:18-0400 Diastolic blood pressure 68 mm[Hg] DO Noel Danita Work Phone: [facility] 06-26-2023 09:18-0400 Heart rate 63 /min DO Noel Danita Work Phone: [facility] 06-26-2023 09:18-0400 Respiratory rate 16 /min DO Noel Danita Work Phone: [facility] 06-26-2023 09:18-0400 SaO2% (BldA) [Mass fraction] 98 % DO Noel Danita Work Phone: [facility] 06-26-2023 09:18-0400 Systolic blood pressure 108 mm[Hg] DO Noel Danita Work Phone: [facility] 06-26-2023 07:42-0400 Body height 172.72 cm DO Noel Danita Work Phone: [facility] 06-26-2023 07:42-0400 Body mass index (BMI) [Ratio] 30.4 kg/m2 DO Noel Danita Work Phone: [facility] 06-26-2023 07:42-0400 Body weight 91 kg DO Noel Danita Work Phone: [facility] 06-26-2023 06:28-0400 Body temperature 97.9 [degF] DO Noel Danita Work Phone: [facility] 01-08-2023 12:08-0400 Diastolic blood pressure 68 mm[Hg] DO Noel Danita Work Phone: [facility] 01-08-2023 12:08-0400 Heart rate 62 /min DO Noel Danita Work Phone: [facility] 01-08-2023 12:08-0400 Respiratory rate 18 /min DO Noel Danita Work Phone: [facility] 01-08-2023 12:08-0400 SaO2% (BldA) [Mass fraction] 96 % DO Noel Danita Work Phone: [facility] 01-08-2023 12:08-0400 Systolic blood pressure 126 mm[Hg] DO Noel Danita Work Phone: [facility] 01-08-2023 09:11-0400 Body height 175.26 cm DO Noel Danita Work Phone: [facility] 01-08-2023 09:11-0400 Body temperature 97.8 [degF] DO Noel Danita Work Phone: [facility] 01-08-2023 09:11-0400 Body weight 91 kg DO Noel Danita Work Phone: [facility] 01-06-2023 17:00-0400 Diastolic blood pressure 69 mm[Hg] DO Noel Danita Work Phone: [facility] 01-06-2023 17:00-0400 Heart rate 81 /min DO Noel Danita Work Phone: [facility] 01-06-2023 17:00-0400 Respiratory rate 18 /min DO Noel Danita Work Phone: [facility] 01-06-2023 17:00-0400 SaO2% (BldA) [Mass fraction] 99 % DO Noel Danita Work Phone: [facility] 01-06-2023 17:00-0400 Systolic blood pressure 126 mm[Hg] DO Noel Danita Work Phone: [facility] 01-06-2023 15:57-0400 Body height 172.72 cm DO Noel Danita Work Phone: [facility] 01-06-2023 15:57-0400 Body temperature 98.2 [degF] DO Noel Danita Work Phone: [facility] 01-06-2023 [id number] Body weight 88.8 kg DO Noel Danita Work Phone: [facility] Encounters Encounter Date Encounter Type Care Provider Facility Start: 11-03-2024 ambulatory Arslan R MIGUE Jii ty:HEIDI Nair Start: 06-11-2024 ambulatory Arslan SHANE Margyi ty:HEIDI Charles Start: 06-02-2024 End: 06-02-2024 ambulatory NOEL M DANITA Facility:[facility] Start: 06-02-2024 End: 06-02-2024 ambulatory [facility] Work Phone: Start: 06-02-2024 End: 06-02-2024 Patient encounter procedure [facility] Physician [facility] Work Phone: Start: 02-04-2024 End: 02-04-2024 ambulatory [facility] Work Phone: Start: 02-04-2024 End: 02-04-2024 Patient encounter procedure [facility] Physician [facility] Work Phone: Start: 12-24-2023 ambulatory Cj ZELAYA Facility :HEIDI Charles Start: 10-29-2023 End: 10-29-2023 ambulatory Arslanlilibeth SHANE Facility:[facility] Start: 07-16-2023 End: 07-16-2023 ambulatory Noel Danita Other [facility] [employer] Other Start: 07-16-2023 Patient encounter procedure Noel Danita [facility] Start: 06-26-2023 End: 06-26-2023 ambulatory Arslan Shane Facility:[facility] Start: 06-26-2023 End: 06-26-2023 Admission to same day surgery center DO Noel Danita Work Phone: [facility] [place] Start: 06-26-2023 End: 06-26-2023 ambulatory DO Noel M. Danita Work Phone: [facility] Work Phone: Start: 06-26-2023 End: 06-26-2023 ambulatory Arslan SHANE Facility::[id number] Start: 06-18-2023 End: 06-18-2023 ambulatory Arslan Shane Facility:[facility] Start: 06-18-2023 End: 06-18-2023 ambulatory DO Noel M. Danita Work Phone: [facility] Work Phone: Start: 06-18-2023 End: 06-18-2023 Patient encounter procedure DO Noel Danita Work Phone: [facility] Work Phone: Start: 03-26-2023 End: 03-26-2023 ambulatory Noel Samayoa Facility:[facility] Start: 03-26-2023 End: 03-26-2023 ambulatory DO Noel Dante. Danita Work Phone: [facility] Work Phone: Start: 03-26-2023 End: 03-26-2023 Patient encounter procedure DO Noel Danita Work Phone: [facility] [place] Work Phone: Start: 03-12-2023 End: 03-12-2023 ambulatory DO Noel M. Danita Work Phone: [facility] Work Phone: Start: 03-12-2023 End: 03-12-2023 Patient encounter procedure DO Noel Danita Work Phone: [facility] [place] Work Phone: Start: 01-11-[address] NOEL SAMAYOA Facil ity:[facility]1 Start: 01-08-2023 End: 01-08-[address] NOEL SAMAYOA Facility: Start: 01-08-2023 End: 01-08-2023 Emergency department patient visit Noel DanteYesica Samayoa Facility:[facility] Start: 01-08-2023 End: 01-08-2023 Emergency department patient visit DO Noel Danita Work Phone: [facility] Work Phone: Start: 01-06-2023 End: 01-06-2023 Emergency department patient visit Carmen Cuello Facility:[facility] Start: 01-06-2023 End: 01-06-2023 Emergency department patient visit DO Noel Danita Work Phone: [facility] Work Phone: Start: 08-24-2021 End: 08-24-2021 ambulatory Anjel Rizzo Other [employer] Other Start: 08-24-2021 Office outpatient vi sit 5 minutes Anjel Rizzo [facility] [address] Procedures Date Procedure Procedure Detail Performing Clinician Start: 06-26-2023 Extracorporeal shock wave lithotripsy of calculus of kidney DO Noel Danita Work Phone: Start: 06-26-2023 Diagnostic radiograp hy of abdomen DO Noel Danita Work Phone: Start: 01-08-2023 Urine culture DO Noel R uggles Work Phone: Start: 01-06-2023 CT of abdomen and pe lvis without contrast DO Noel Danita Work Phone: Start: 01-06-2023 Urine culture DO Noel R uggles Work Phone: Plan of Treatment Date Care Activity Detail Author Start: 02-04-2024 Patient referral [facility] Work Phone: Start: 06-26-2023 End: 06-26-2023 [facility] Start: 03-26-2023 [facility] Start: 01-08-2023 Bacteria identified in Urine by Culture [facility] Patient Education Kidney Stones (DC) [facility] Work Phone: Patient referral [facility] Work Phone: Supine abdominal X-ray [facility] Immunizations Immunization Date Immunization Notes Care Provider Fa cility 07-16-2023 influenza, injectabl e, quadrivalent, contains preservative Noel Danita Other [employer] [facility] [employer] Other 07-16-2023 influenza, injectabl e, quadrivalent, preservative free [facility] 01-09-2021 COVID-19 Vaccine Pfi zer - Documentation Purposes Only Anjel Rizzo Other [facility] 12-16-2020 COVID-19 Vaccine Pfi zer - Documentation Purposes Only Anjel Rizzo Other [facility] 08-27-2019 influenza, seasonal, injectable Anjel Rizzo Other [facility] 05-29-2016 influenza, injectabl e, quadrivalent, preservative free [facility] 05-29-2016 influenza, injectabl e, quadrivalent, contains preservative Anjel Rizzo Other [facility] [employer] Other Payers Date Payer Category Payer Self-pay [id number] 1960 Unknown [id number] [id number]. 2.593 1960 Unknown [id number] 2..840.1.617659.3.579. 2.593 1960 Unknown [id number] 2.16.840.1.176607.3.579. 2.727 1960 Unknown [id number] 2.16.840.1.739556.3.579. 2.727 1960 Unknown [id number] 2.16.840.1.251517.3.579. 2.727 1960 Unknown [id number] 2.16.840.1.938779.3.579. 2.727 1960 Unknown [id number] 2.16.840.1.198242.3.579. 2.727 1960 Unknown [id number] 2.16.840.1.229757.3.579. 2.727 1958 Blue Cross Blue Shield [id number] Private Health Insurance [facility] [id number] Unknown [id number] 2.16.840.1.161171.3.579. 2.531 Unknown [id number] 2.16.840.1.546078.3.579. 2.531 Unknown [id number] 2.16.840.1.677564.3.579. 2.531 Unknown [id number] 2.16.840.1.057752.3.579. 2.531 Unknown [id number] 2.16.840.1.131803.3.579. 2.531 Worker's Compensation [employer] Misc [id number] Worker's Compensation [employer] [facility] [id number] Social History Date Type Detail Facility Unknown if ever smoked [employer] Other Sex Assigned At Sex Assigned At Bir th [employer] Other Start: 01-08-2023 Tobacco smoking status NHIS Never smoked tobacco (finding) [facility] Start: 1960 Sex Assigned At Male F [facility] Start: 06-18-2023 End: 06-02-2024 Tobacco smoking status NHIS Ex-smoker (finding) [facility] Medical Equipment Procedure Code Equipment Code Equipment Origin al Text Equipment Identifier Dates Cystoscopy, with ureteral calculus manipulation and stent placement Polymeric ureteral stent ()[id number] FDA Start: 02-16-2021 Goals Date Patient Goal Desired Activity /State Evaluation note 07-16-2023 Note Date & Type Note Facility 07-16-2023 Evaluation note Encounter Date Diagnosis Assessment Notes Jun, Olecranon bursitis of left elbow (ICD-10 - M70.22) Jun, Flu vaccine need (ICD-10 - Z23) [facility] [facility] Other Evaluation note 08-24-2021 Note Date & Type Note Facility 08-24-2021 Evaluation note Encounter Date Diagnosis Assessment Notes Jul, Contact with and (suspected) exposure to other viral communicable diseases (ICD-10 - Z20.828) covid test negative, f/u PRN. Jul, Other Additional time spent conducting pre-visit phone call, screening for symptoms, instructions on social distancing, application and removal of PPE, and cleaning of examination room, equipment and supplies was preformed. Patient education given for testing methodology and results. Patient care instructions given in writting by [facility] document. [employer] Other History general Narrative - Reported 11-26-2019 Note Date & Type Note Facility 11-26-2019 History general N arrative - Reported Type Medical History genital herpes Medical History hypercholesterolemia Medical History kidney stones Medical History left knee torn meniscus (11/2019) Surgical History Left Kidney stone 12/2015 Surgical History left knee scope with medial menisectomy, chondroplasty 04/2020 Hospitalization History Left Kidney stone [facility] Other History general Narrative - Reported 11-26-2019 Note Date & Type Note Facility 11-26-2019 History general N arrative - Reported Type Medical History genital herpes Medical History hypercholesterolemia Medical History kidney stones Medical History left knee torn meniscus (11/2019) Surgical History Left Kidney stone 12/2015 Surgical History left knee scope with medial menisectomy, chondroplasty 04/2020 Surgical History LIthotripsy- left Kidney 3 Surgical History Left Kidney Laser Surgery 01/13 23 Hospitalization History Left Kidney stone [employer] Other Evaluation note Note Date & Type Note Facility Evaluation note No assessment information availa ble [facility] Work Phone: Evaluation note Note Date & Type Note Facility Evaluation note Diagnosis Onset Date Sleep apnea acute [facility] Work Phone: Evaluation note Note Date & Type Note Facility Evaluation note Diagnosis Onset Date Left flank pain noneactive [facility] Work Phone: Hospital Discharge instructions Note Date & Type Note Facility Hospital Discharge instructions Additional Instructions Go directly to the urology office [address] [place] it is the building behind the hospital in the same building with [facility] dialysis Try not to stop do not eat or drink on your way to the hospital [phone] is the office phone number if you have any problems getting to the office [facility] Work Phone: Hospital Discharge instructions Note Date & Type Note Facility Hospital Discharge instructions Additional Instructions DISCHARGE INSTRUCTIONS FOR LITHOTRIPSY You just had a lithotripsy procedure, which utilizes shock waves to break up the kidney stone into smaller pieces. The following instructions must be followed very closely: -If you need pain pills, start before pain becomes intense. Antibiotics and pain pills are frequently less upsetting to your stomach if you take them wiht food such as crackers or bread. -If you are having excessive or persistent pain, swelling, bleeding, nausea, vomiting, or any other problems, you should first call your surgeon for advice. If you are unable to contact your surgeon, seek help from a hospital emergency room. If you were given drugs to make you drowsy and/or pain medication, follow these instructions: -You should spend the remainder of the day and evening resting. -You should not attempt to walk, including going to the bathroom, without assistance. You may be lightheaded from the medications you received. -Eat light today to avoid nausea. You should be able to return to your normal diet 24-36 hours after surgery. -For the next 24 hours you should not consume alcohol, attempt to drive, use any power tools, sign important documents or make important personal or business decisions After that, do so if you feel perfectly normal and alert. -Follow carefully any verbal or written instructions your surgeon may have given you. DIET You may resume your normal diet, but you may want to avoid alcohol, carbonated drinks, caffeine, and spicy foods, which may increase the irritation from surgery. Drink plenty of water to keep the urine clear. ACTIVITY -You should limit any physical activity for about 48 hours. -No heavy lifting or straining (10 pound limit). -No driving a car and limit long car rides for 2 days. -No strenuous exercise. MEDICATIONS -[You may resume your home medications, but avoid medications such as aspirin, Advil, Motrin, Plavix, Coumadin, Xarelto, Eliquis, or other medications which thin the blood and worsen bleeding. We will discuss when to resume such medications at your office visit.] WHAT TO EXPECT -Blood in the urine is very common, as some of the kidney or ureter may get bruised during the procedure. -Some frequency of urination, as well as burning with urination is common for a few days after your procedure. -If a stent is in place, the bloody urine and bladder irritation will remain until the stent is removed in the office. -You may have some pain in the flank, and there may be some bruising in the area. -You may pass some gravel and stone particles. Please save these if you are able and bring them to the office at your appointment. THINGS TO WATCH FOR WHICH WOULD REQUIRE AN EMERGENCY ROOM VISIT (OR CALL 911) (This is not a complete list) -Persistent or heavy bleeding or severe unrelenting flank pain. -Heavy bruising in the flank. -Inability to urinate. -Fever over 101.5 degrees Fahrenheit, with or without chills. -Severe drug reactions, with itching, hives, or rash. -Tenderness or swelling of the calves, chest pain, or shortness of breath. FOLLOW UP -Office will call for next step. Patient is to strain his urine for 2 weeks. [ ] [facility] Work Phone: Hospital Discharge instructions Note Date & Type Note Facility Hospital Discharge instructions Ambulatory OrdersReferral to Sleep Medicine Time Frame: 02/04/24, Location: None Selected [facility] Work Phone: Summary Purpose Family History No Family History Records Found Relationship Condition Age at Onset Recorded Date/T maldonado father Parkinson's disease Unknown Hypertension Unknown Relationship Condition Age at Onset Recorded Date/T maldonado father Hypertension Unknown Parkinson's disease Unknown Not Specified Paralysis Unknown Relationship Condition Age at Onset Recorded Date/T maldonado father Hypertension Unknown Parkinson's disease Unknown Not Specified Paralysis Unknown father Unknown Not Specified Unknown sister Unknown Relationship Condition Age at Onset Recorded Date/T maldonado father Hypertension Unknown Parkinson's disease Unknown mother Paralysis Unknown father Unknown mother Unknown sister Unknown Advance Directives No Advanced Directives Records Found Advance Directive Response Recorded Date/ Time Advance Directives No March 13 6:33am Chief Complaint and Reason for Visit Chief Complaint left side pain L side pain Chief Complaint left side pain L side pain kidney stone Chief Complaint left side pain L side pain kidney stone kidney stones Chief Complaint kidney stones left kidnestone Chief Complaint left kidnestone left kidnestone Chief Complaint bursitis back on his left elbow Reason for Visit Sleep apnea Chief Complaint left side back pain Reason for Visit Left flank pain Additional Source Comments (unrecognized sect ion and content) No Status Records FoundNo Status Records FoundNo Status Records FoundNo Status Records Found INFORMATION SOURCE (unrecogn ized section and content) DATE CREATED AUTHOR 10/10/2021 [facility] DATE CREATED AUTHOR AUTHOR'S ORGANIZ ATION 01/10/2023 [facility] DATE CREATED AUTHOR AUTHOR'S ORGANIZ ATION 07/25/2023 [facility] DATE CREATED AUTHOR AUTHOR'S ORGANIZ ATION 06/11/2024 [facility] REASON FOR VISIT (unrecogniz ed section and content) #29 covid exposure - asympto maticbulge of liquid left elbow since last week/ may want flu shot, does report recent lithotripsy for left kidney stone-- says he will follow up with urology for next step, xray , etc., does report he's on a twice daily medication dissolvable like radha seltzer- to prevent the kidney stones- will investigate Care Teams (unrecognized sec tion and content) Team Status: Active Member Role Status Dates Noel Samayoa , DO Primary Care Provider Active Team Status: Inactive Member Role Status Dates Noel Samayoa , DO Primary Care Provider Active Carmen Cuello MD Emergency Provider Active Team Status: Inactive Member Role Status Dates Noel Samayoa , DO Primary Care Provider Active Regi Lowery [facility] Emergency Provider Active Team Status: Inactive Member Role Status Dates Noel Samayoa , DO Primary Care Provider Active Arslan Shane MD Attending Provider Active Team Status: Inactive Member Role Status Dates Noel Samayoa , DO Primary Care Provid er, Attending Provider Active Start: February 04, 2024 End: February 04, 2024 Team Status: Inactive Member Role Status Dates Noel Samayoa , DO Primary Care Provid er, Attending Provider Active Start: June 02, 2024 End: June 02, 2024 Goals (unrecognized section and content) Goals may be documented in a n alternate section FOR RECORDS PERTAINING TO PATIENTS WHO ARE OR HAVE BEEN ENROLLED IN A CHEMICAL DEPENDENCY/SUBSTANCEABUSE PROGRAM, SOME INFORMATION MAY BE OMITTED. This clinical summary was aggregated from multiple sources. Caution should be exercised in using it in the provision of clinical care. This summary normalizes information from multiple sources, and as a consequence, information in this document may materially change the coding, format and clinical context of patient data. In addition, data may be omitted in some cases. CLINICAL DECISIONS SHOULD BE BASED ON THE PRIMARY CLINICAL RECORDS. [employer] provides no warranty or guarantee of the accuracy or completeness of information in this document.
[2024-06-12] MEDS: LACTATED RINGER'S SOLUTION 1,000 ML 50 ML IV ×2 (10:46→13:19)
[2024-06-12] MEDS: CEFAZOLIN SODIUM 2 GM/50 ML D5W PREMIX IV (11:31)
--- NOTE | 2024-06-12 12:44 | PM.URSON ---
Urology Surgery Operative Note Operative Note Procedure Date: 06/12/24 Time Out Performed: yes Pre-op Diagnosis: Left renal calculus Post-op Diagnosis: same as pre-op Procedures performed: 1. Cystoscopy. 2. Left ureteroscopy. 3. Left pyeloscopy. 4. Thulium laser lithotripsy of left renal calculi. 5. Placement of 4.9 Micronesian variable length ureteral stent on the left Anesthesia: General-LMA Primary Surgeon: Arslan Shane Complications: None Estimated blood loss (mL): 10 Findings: Left renal pelvis calculus Specimens: None Drains: 4.9 Micronesian the left ureteral stent Indications for Procedures: This gentleman has a 8 to 9 mm left renal pelvis stone that is causing pain. This has been going on for several months. He now presents for ureteroscopic stone manipulation and probable left stent placement. He has signed an informed consent after all risks were explained. Detailed description of Procedure: The patient was brought to the operating room and placed on the operating room table in the supine position. SCDs were placed on the lower extremities and turned on and functioning during the entire case. Timeout was done by all parties in the room. We all agreed upon the patient's identification and the planned procedures for this patient. Genn. anesthesia was then administered. The patient was then repositioned into the modified dorsal lithotomy position. All pressure points were satisfactorily padded. Genitalia were sterilely prepped and draped in usual fashion. I started by passing a 22 Micronesian Olympus cystoscope per urethra and into the bladder. Anterior urethra was normal. Prostatic urethra showed by lobar hypertrophy. Bladder revealed no evidence of any tumors stones or lesions. I then passed a Glidewire through the scope and up the left ureter into the kidney. I then remove the scope and then passed a 10/12 ureteral access sheath over the wire and up the left ureter to the L5 position. The stylette and wire were then removed. I then passed a flexible ureteroscope through the sheath into the ureter and went up the ureter. I then went into the kidney and arrived at the large stone. I then used a 270 Angstrom laser fiber and made contact with the stone. I used the thulium laser to do lithotripsy first at 6 W then at 10 W continuously. The stone was harder than initially thought. As fragmentation continued some pieces fell into the a midpole calyx. I chased those and similarly lasered them in the dusting mode. Once the entire stone was dusted there was no evidence of any stone remaining. All of the calyces were evaluated. Fluoroscopically we were unable to see any also. The scope was then removed. A Glidewire was then passed through the sheath into the kidney and the sheath was removed. Cystoscope was backloaded over the wire and a 4.9 Micronesian variable length stent was passed over the wire up into the left kidney. The wire was removed and there were good curls in the kidney and in the bladder. The bladder was drained of its contents and the scope was removed. He was then transferred to a [facility] bed and wheeled to PACU in stable condition.
[2024-06-12] MEDS: SOLIFENACIN SUCCINATE 10 MG TABLET PO (12:51)
[2024-06-12] MEDS: [UNRECOGNIZED DRUG - OTHER] 1 CAP PO (12:58)
[2024-06-12] MEDS: KETOROLAC TROMETHAMINE 30 MG/ML VIAL IVP (14:16)
--- NOTE | 2024-06-12 14:55 | PC.NURSE ---
patient stated his pain was much better 15 min after iv ketorlac. He was able to ambulate and urinate and stated he was ready to go home.
== END 2024-06-12 14:51 | disposition home or self-care (01) ==
PROVIDERS: PCP Family Medicine; Visit Provider Urology
PROC: (CPT 918; principal; 2024-06-12 11:35)
DX: N20.0 Calculus of kidney (principal); N40.1 Benign prostatic hyperplasia with lower urinary tract symptoms; R35.1 Nocturia; R39.15 Urgency of urination; R10.9 Unspecified abdominal pain; Z87.891 Personal history of nicotine dependence; R31.0 Gross hematuria; R82.991 Hypocitraturia; R82.998 Other abnormal findings in urine; Z87.442 Personal history of urinary calculi
CPT/HCPCS: 52356; 36415; 76000; J0690; J1100; J1885; J2250; J2371; J2704; J3010

== ENCOUNTER 2024-06-20 11:35 | Outpatient (OUT) | payer BC, SELFPAY ==
--- OUTSIDE RECORDS SUMMARY | 2024-06-20 11:39 | XMS_ITS | CCD ---
Author Organization [facility] Care Team Providers Care Field Tax Auditor Name Role Phone Anjel Rizzo Unavailable DO Noel Samayoa. Primary Care Provider MD Carmen Cuello Emergency Provider [phone] [place] [facility] Regi Schumacher Emergency Provider DANITA, DR NOEL Howell Primary Care Unavailable SHANE ., DR VALDEZ Admitting Unavailable SHANE ., DR VALDEZ Consulting Unavailable SHANE ., DR VALDEZ Attending Unavailable TODD DUBOIS Consulting Unavailable DANITA, DR NOEL Howell Primary Care Unavailable SHANE ., DR VALDEZ Admitting Unavailable MIGUE ., DR VALDEZ Attending Unavailable MD Arslan Shane Attending Provider DO Noel Samayoa. Primary Care Provider MD Arslan Shane Attending Provider DO Noel [...] Regi E Admitting Unavailable Arslan SHANE Attending Arslan Santos Attending Unavailable NOEL SAMAYOA Admitting Unavailable NOEL SAMAYOA Attending Unavailable Arslan SHANE Attending Unavailable Arslan SHANE Attending Unavailable Arslan SHANE Attending Unavailable Cj ZELAYA Attending Unavailable Arslan SHANE Attending Unavailable Allergies Allergy Classification Reported Allergen(s) Allergy Type Date of Onset Reaction(s) Facility (1 source) No Known Medication Allergies; Translations: [No Known Medication Allergies] Propensity to adverse reactions (disorder) [facility] Repository Medications Current Medications Medication Drug Class(es) [...] 2023 9:01am take 1 tablet by cam every six hours HYDROcodone-Acetaminophen 5-325 MG 1 [...] Test Name Value Interpretation Reference Range Facility Ambulatory Visit Summaryon 1 Ambulatory Visit Summary Ambulatory Visit Summary CARMEN JARAMILLO :1960 Visit Date:06/11/2024 Ambulatory Visit Instructions Your Diagnosis Kidney stone Left flank pain Gross hematuria Hypocitraturia Oxalate high in urine BPH with obstruction/lower urinary tract symptoms History of kidney stones Your Care Team Attending Physician - MIGUE MCKEON, Arslan Medellin Primary Care Physician - NOEL SAMAYOA DO This Is Your Medications List potassium bicarbonate (K-Effervescent 25 mEq oral tablet, effervescent) Contact prescribing physician if questions or concerns ketorolac Procedures Performed ESWL of kidney (06/26/2023), Cystoscopic removal of ureteric stent (01/23/2023), Cystoscopic laser lithotripsy of ureteric calculus (01/11/2023), Cystoscopic removal of ureteric stent (01/08/2023), Cystoscopic removal of ureteric stent (02/24/2021), ESWL - Extracorporeal shockwave lithotripsy for renal calculus (02/16/2021), Cysto/Lt stent removal (02/23/2016), History of percutaneous nephrolithotomy (02/02/2016), ESWL of kidney, Procedure on knee. Discharge Vitals Heart Rate (Peripheral) 66 Respiratory Rate 16 Blood Pressure 144/80 Height 174 cm Height 69 in Weight 91.9 kg Weight 202.18 lb BMI 30.35 What to do next Scheduled Follow-Up Appointments Sunday 9:15 AM EDT With: Arslan SHANE MD Where: [facility] [place] [address] [place] [address]- You Need to Schedule the Following Appointments Follow Up with Arslan SHANE MD, OG When: Where: [facility] [address] , [place] [address]- Medications What How Much When Instructions Unchanged potassium bicarbonate (K-Effervescent 25 mEq oral tablet, effervescent) 1 Tablets By Mouth 2 times a day Unchanged ketorolac Contact prescribing physician if questions or concerns Allergies No Known Medication Allergies Problems Ongoing - Any problem that you are currently receiving treatment for. BMI 29.0-29.9,adult BPH with obstruction/lower urinary tract symptoms Gross hematuria History of kidney stones Hypocitraturia Kidney stone Left flank pain Oxalate high in urine Patient Survey You may receive a survey via text or e-mail asking about your office visit. Please share your experience with us by completing your survey. We appreciate your feedback and thank you for choosing us for your care. Education Materials Laser Therapy for Kidney Stones, Care After After laser therapy for kidney stones, it is common to have: ? Pain. ? A burning feeling when you pee (urinate). ? Small amounts of blood in your pee (urine). ? A need to pee a lot. ? Parts of the kidney stone in your pee. ? Mild discomfort in your back when you pee. You may have this if you had a small mesh tube (stent) placed during the procedure. Follow these instructions at home: Medicines ? Take tegr-yuh-zahhkpd and prescription medicines only as told by your health care provider. ? If you were prescribed antibiotics, take them as told by your provider. Do not stop using the antibiotic even if you start to feel better. ? Ask your provider if the medicine prescribed to you: ? Requires you to avoid driving or using machinery. ? Can cause constipation. You may need to take these actions to prevent or treat constipation: ? Drink enough fluid to keep your pee pale yellow. ? Take jclc-cyd-kpcxoel or prescription medicines. ? Eat foods that are high in fiber, such as beans, whole grains, and fresh fruits and vegetables. ? Limit foods that are high in fat and processed sugars, such as fried or sweet foods. Activity ? If you were given a sedative during the procedure, it can affect you for several hours. Do not drive or operate machinery until your provider says that it is safe. ? Return to your normal activities as told by your provider. Ask your provider what activities are safe for you. General instructions ? Your provider may recommend that you drink a lot of water for a few hours after your procedure. If you have heart or kidney disease, ask your provider how much you should drink. ? You may be asked to strain your pee to collect any stone pieces that you pass. Your provider may have these pieces tested. ? Do not take baths, swim, or use a hot tub until your provider approves. Ask your provider if you may take warm baths to soothe the burning. ? Keep all follow-up visits. If you have a stent, you will need to go back to your provider to have it removed. Your provider may give you more instructions. Make sure you know what you can and cannot do. Contact a health care provider if: ? You have pain or a burning feeling that lasts for more than 2 days. ? You feel nauseous. ? You vomit more and more often. ? You have trouble peeing. ? You have pain that g (more content not included)... [facility] Provider Letteron 06-11-2024 Provider Letter Provider Letter June 11, 2024 CARMEN [place] [address] [place] [address] : 1960 To Whom It May Concern, Please excuse above patient from work. Date of Illness: From: 06/11/2024 To: 06/14/2024 May Return to Work On:06/16/2024 Restrictions: none Comments: Patient is having surgery 06/12/[address] Shane. Sincerely, [facility] , Option #3 Normal [facility] Urology Office/Clinic Noteon 06-11-2024 Urology Office/Clinic Note Urology Office/Clinic Note Chief Complaint office visit HPI Staff Office visit. Pt is here to review KUB 06/02/24-[facility] Dx: kidney stone and BPH with obstruction/LUTS. *Potassium Bicarb 25meq BID therapy. PSA 05/07/23- 0.77 Dysuria: denies pain or burning Incomplete bladder emptying: denies Hematuria: denies visible blood, but dark urine Frequency: denies Urgency: yes Nocturia: 1x Stream: stream varies from strong to weak Leaking: denies Post void dripping: denies Wearing pads/ Depends: denies Urge incontinence: denies Stress incontinence: denies Incontinence without Sensory Awareness: denies Abdominal pain: yes sometimes has left sided pain Flank pain: left sided pain, on and off for the past 4 months Sexual complaints: denies History of Present Illness Tests reviewed: UA, KUB I have reviewed the previous health record information and history for this patient from Dr. Shane. I have reviewed and verified the staff HPI to be accurate for this encounter. Review of Systems PHQ Score Initial [...] tendency. Psychiatric: no confusion, no anxiety. Genitourinary: See HPI. Physical Exam Vitals & Measurements HR: 66(Peripheral) RR: 16 BP: 144/80 HT: 69 in HT: 174 cm WT: 91.9 kg WT: 202.18 lb BMI: 30.35 General Appearance: alert, no distress, well nourished, well developed male. Assessment/Plan 1. Kidney stone (N20.0: Calculus of kidney) KUB 05/19/23 - 8 mm left renal stone. S/p L ESWL 06/26/23. KUB 06/02/24 [facility] - ~8 mm stone L renal pelvis. No R renal stones but portions of both kidneys obscured. No F/S/C. Reviewed imaging with pt, stone location causing urine blockage and therefore pain. Discussed surgical intervention options including ESWL if visible on x-ray (less invasive, lower stone free rate) and ureteroscopy/laser litho with possible stent placement (more invasive, higher stone free rate). Risks and benefits of each discussed. However, pt has been on Toradol which is a mild BT so would not be candidate to add onto surgery schedule tomorrow unless he elects laser litho. Pt elects to proceed with laser litho. Will schedule L URS, L Laser Litho, stent placement. The procedural risks, benefits, details, and treatment alternatives have been discussed with the patient. These include bleeding, infection, inability to break or retrieve all of the stone, injury to the ureter (the tube which connects the kidney to the bladder), injury to the kidney scarring of the ureter, and need for repeat procedures, among others. Full informed consent has been obtained. Will order General anesthesia. 2. Left flank pain (R10.9: Unspecified abdominal pain) L flank pain, mostly in his back, occasionally wraps around to the front. Was given Ketorolac by Dr. Samayoa. Has been taking q6hr. 3. Gross hematuria (R31.0: Gross hematuria) UA shows large blood wo signs of infection. Does have darker urine after strenuous day at work. Like from #1, monitor for resolution after #1 resolved. 4. 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 Taking Effer-K 25 mEq bid. 5. Oxalate high in urine (R82.998: Other abnormal findings in urine) Stone analysis 2020 - 70% CaOx di, 30% CaOx mono. Metabolic workup 03/26/23 - Volume 1,350 cc. U24 Ox 70 H. Serum panel wnl. 6. BPH with obstruction/lower urinary tract symptoms (N40.1: Benign prostatic hyperplasia with lower urinary tract symptoms) PSA: 05/07/23 - 0.77 IPSS 18. Not taking any prostate meds. 7. History of kidney stones (Z87.442: Personal history of urinary calculi) Hx of PCNL at [facility] due to 0.75 stone. Follow-up With When Contact Information MIGUE MCKEON, Arslan Medellin, URL [facility] [address], [place] [address]- Additional Instructions: schedule L URS, L Laser Litho, stent placement Patient Education Laser Therapy for Kidney Stones, Care After Laser Therapy for Kidney Stones I, Rosario Puri, personally scribed for Dr. Shane on 06/11/2024 11:24:45. . Documentation recorded by the scribe, Rosario Puri, accurately reflects the services(s) I performed and decisions made by me. Authenticated by Dr. Shane on 06/11/2024 11:26:10. Problem List/Past Medical History Ongoing BMI 29.0-29.9,adult BPH with obstruction/lower urinary tract symptoms Gross hematuria History of kidney stones Hypocitraturia Kidney stone Left flank pain Oxalate high in urine Historical No q (more content not included)... Normal [facility] Comment on above: Result Comment: Elec tronically Signed By: Arslan SHAEN MD\.br\Date and Time Signed: 06/11/24 11:26 EDT\.br\Electronically Co-Signed By: Rosario Puri\.br\Date and Time Co-Signed: 06/11/24 11:25 EDT XR Abdomen 1 Viewon 06-05-20 XR Abdomen 1 View Exam Date/Time: 06/02/2024 [...] mGy = na DAP = na Normal [facility] Provider Letteron 11-20-2023 Provider Letter (Inserted Image. Sweta ble to display) November 20, 2023 CARMEN JARAMILLO [address] [place] [address] : 1960 Dear Carmen Jaramillo , We have been trying to reach you with no success. It is important that you return our call regarding your recent imaging results upon receiving this letter. Also, at the time of your call, please provide us with your current information. Thank you for your prompt attention to this matter. Sincerely, [facility] [address] [place] [address] Normal [facility] [id number] Normal [facility] [id number] Normal [facility] [id number]#[id number] Normal [facility] Ambulatory Visit Summaryon 0 10-29-2023 Ambulatory Visit [...] SHANE MD Where: [facility] Patient Educationon 10-29-19 24 Patient Education Urology Benign Prostatic Hyperplasia Benign [...] Follow these instructions at home: ? Take jogi-zcl-rqxxhmw and prescription medicines only as told by [...] the medicine (more content not included)... [facility] Urology Office/Clinic Noteon 10-29-2023 Urology Office/Clinic Note [...] When Contact Information MIGUE MCKEON, Arslan Medellin, URL [facility] [address], [place] [address] [phone] Additional Instructions: Patient Education Benign Prostatic Hyperplasia Kidney Stones, Dvan-ur-Xdjz Tata Zamorano, personally scribed for Dr. Shane on 10/29/2023 [...] Recorded influenza (more content not included)... [facility] Comment on above: Result Comment: Elec tronically Signed By: MIGUE MCKEON, Arslan Dumont.tameka\Date and Time Signed: 10/29/23 10:05 EST RAD - MISCon 07-06-2023 RAD - MISC [id number] [facility] Operative Reporton Operative Report [id number] [facility] XR KUBon 06-26-2023 XR KUB [facility] [place] [address] XRay Report Signed Patient: Carmen Jaramillo MR#: [id number] : 1960 Acct:[id number] Age/Sex: 62 / M ADM Date: 06/26/23 Loc: [place] Room: Type: [facility] Attending Dr: Arslan Shane MD Copies to: [...] Villa Jr., D.O.06/26/2023 9:41 AM Dictation Location: [place] [address] Transcribed By: [facility] 06/26/23940 Dictated By: Hood Villa Jr, DO 06/26/23939 Signed By: 06/26/23940 Normal [facility] Activated partial thrombopla stin time (aPTT) in platelet poor plasma by coagulation aOrdered By: Arslan Shane on 06-18-2023 aPTT Coag (PPP) [Time] 27.2 s 25.1-36.5 [facility] Comment on above: A hematocrit value g reater than 55% may lead to inaccurate results in coagulation testing. Patients having hematocrit values >55% require a special collection tube for coagulation studies. Please contact the laboratory at [phone] for redraw instructions. Basic Metabolic Panelon 05-28 Anion gap [Moles/Vol] 7.2 mmol/L Normal 6.0-15.0 [facility] Comment on above: Performed By: #### C UU, ADDONUAPLUS #### [facility] [address] [place] [address] [place] Calcium [Mass/Vol] 8.8 mg/dL Normal 8.6-10.3 [facility] Comment on above: Result Comment: PERF ORMED BY: [place] [address] PATHOLOGIST MARKER HAND JOS MOYA M.D. Performed By: #### C UU, ADDONUAPLUS #### [facility] [address] [place] [id number] [place] Chloride [Moles/Vol] 107 mmol/L Normal 98-107 [facility] Comment on above: Performed By: #### C UU, ADDONUAPLUS #### [facility] [address] [place] [id number] [place] CO2 [Moles/Vol] 29.9 mmol/L Normal 21.0-31.0 [facility] Comment on above: Performed By: #### C UU, ADDONUAPLUS #### [facility] [address] Creatinine [Mass/Vol] 1.02 mg/dL Normal 0.70-1.30 [facility] Comment on above: Performed By: #### C UU, ADDONUAPLUS #### [facility] [address] [place] [address] [place] GFR/1.73 sq M.predicted MDRD (S/P/Bld) [Vol rate/Area] mL/min/{1.73_m2} Normal [facility] Comment on above: Performed By: #### C UU, ADDONUAPLUS #### [address] Glucose [Mass/Vol] 99 mg/dL Normal 70-100 [facility] Comment on above: Result Comment: [place] Glucose Reference Range is dependent on time and content of last meal. Glucose of more than 200 mg/dL in a nonstressed, ambulatory subject supports the diagnosis of Diabetes Mellitus. ADA recommended reference range Performed By: #### C UU, ADDONUAPLUS #### [address] Potassium [Moles/Vol] 4.1 mmol/L Normal 3.5-5.1 [facility] Comment on above: Performed By: #### C UU, ADDONUAPLUS #### [place] [address] [place] Sodium [Moles/Vol] 140 mmol/L Normal 136-145 [facility] Comment on above: Performed By: #### C UU, ADDONUAPLUS #### [place] [address] [place] Urea nitrogen [Mass/Vol] 23 mg/dL Normal 7-25 [facility] Comment on above: Performed By: #### C UU, ADDONUAPLUS #### [place] [address] [place] Basophils Auto (Bld) [#/Vol] Ordered By: Arslan Shane on 06-18-2023 Basophils (Bld) [#/Vol] 0.0 10*3/uL 0.0-0.2 [facility] Basophils/100 WBC Auto (Bld) Ordered By: Arslan Shane on 06-18-2023 Basophils/100 WBC (Bld) 0.4 % . [facility] Calcium [Mass/volume] in Ser um or PlasmaOrdered By: Arslan Shane on 06-18-2023 Calcium [Mass/Vol] 8.8 mg/dL 8.6-10.3 [facility] Carbon dioxide, total [Moles /volume] in Serum or PlasmaOrdered By: Arslan Shane on 06-18-2023 CO2 [Moles/Vol] 29.9 mmol/L 21.0-31.0 [facility] Chloride [Moles/volume] in S renny or PlasmaOrdered By: Arslan Shane on 06-18-2023 Chloride [Moles/Vol] 107 mmol/L 98-107 [facility] Complete Blood Count Auto Di ffon 06-18-2023 Basophils (Bld) [#/Vol] 0.0 10*3/uL Normal 0.0-0.2 [facility] Comment on above: Result Comment: PERF ORMED BY: [place] [address] PATHOLOGIST MARKER HAND JOS MOYA M.D. Performed By: #### B MP, PT, PTT, CBC #### [facility] [address] [place] [address] Basophils/100 WBC (Bld) 0.4 % Normal . [facility] Comment on above: Performed By: #### B MP, PT, PTT, CBC #### [facility] [address] [place] [address] [place] Eosinophils (Bld) [#/Vol] 0.1 10*3/uL Normal 0.0-0.45 [facility] Comment on above: Performed By: #### B MP, PT, PTT, CBC #### [facility] [address] Eosinophils/100 WBC (Bld) 2.3 % Normal . [facility] Comment on above: Performed By: #### B MP, PT, PTT, CBC #### [address] Erythrocyte distribution width (RBC) [Ratio] 13.5 % Normal 12.0-14.8 [facility] Comment on above: Performed By: #### B MP, PT, PTT, CBC #### [address] Hematocrit (Bld) [Volume fraction] 38.3 % Low 38.8-50.0 [facility] Comment on above: Performed By: #### B MP, PT, PTT, CBC #### [address] Hemoglobin (Bld) [Mass/Vol] 13.1 g/dL Normal 13.0-17.0 [facility] Comment on above: Performed By: #### B MP, PT, PTT, CBC #### [address] Lymphocytes (Bld) [#/Vol] 1.1 10*3/uL Normal 1.00-4.8 [facility] Comment on above: Performed By: #### B MP, PT, PTT, CBC #### [address] Lymphocytes/100 WBC (Bld) 23.7 % Normal . [facility] Comment on above: Performed By: #### B MP, PT, PTT, CBC #### [address] MCH (RBC) [Entitic mass] 30.0 pg Normal 27.5-35.2 [facility] Comment on above: Performed By: #### B MP, PT, PTT, CBC #### [address] MCV (RBC) [Entitic vol] 87.9 fL Normal 83.5-101 [facility] Comment on above: Performed By: #### B MP, PT, PTT, CBC #### [address] Mean Corpuscular HGB Conc 34.1 g/dL Normal 32.5-35.6 [facility] Comment on above: Performed By: #### B MP, PT, PTT, CBC #### [address] Monocytes (Bld) [#/Vol] 0.3 10*3/uL Normal 0.0-0.8 [facility] Comment on above: Performed By: #### B MP, PT, PTT, CBC #### [address] Monocytes/100 WBC (Bld) 7.1 % Normal . [facility] Comment on above: Performed By: #### B MP, PT, PTT, CBC #### [address] Neutrophils (Bld) [#/Vol] 3.2 10*3/uL Normal 1.8-7.7 [facility] Comment on above: Performed By: #### B MP, PT, PTT, CBC #### [address] Neutrophils/100 WBC (Bld) 66.5 % Normal . [facility] Comment on above: Performed By: #### B MP, PT, PTT, CBC #### [address] NRBC% 0.0 /100{WBC} Normal 0-0.5 [facility] Comment on above: Performed By: #### B MP, PT, PTT, CBC #### [address] Platelet mean volume (Bld) [Entitic vol] 7.0 fL Normal 6.6-10.1 [facility] Comment on above: Performed By: #### B MP, PT, PTT, CBC #### [address] Platelets (Bld) [#/Vol] 149 10*3/uL Low 150-450 [facility] Comment on above: Performed By: #### B MP, PT, PTT, CBC #### [address] [place] [address] [place] RBC (Bld) [#/Vol] 4.36 10*6/uL Normal 3.90-5.60 [facility] Comment on above: Performed By: #### B MP, PT, PTT, CBC #### [facility] [address] WBC (Bld) [#/Vol] 4.8 10*3/uL Normal 4.1-10.5 [facility] Comment on above: Performed By: #### B MP, PT, PTT, CBC #### [facility] [address] Creatinine [Mass/volume] in Serum or PlasmaOrdered By: Arslan Shane on 06-18-2023 Creatinine [Mass/Vol] 1.02 mg/dL 0.70-1.30 [facility] ECG 12 lead ECGon 06-18-2023 ECG 12 lead ECG [facility] [place] [address] [place] [address] Electrocardiograph Report Signed Patient: Carmen Jaramillo MR#: [id number] : 1960 Acct:[id number] Age/Sex: 62 / M ADM Date: 06/18/23 Loc: Room: Type: [facility] Attending Dr: Arslan Shane MD Ordering Provider: [...] are no longer present Confirmed by SANDY CORTEZ DO ([id number]) on 06/18/2023 5:27:54 PM Referred By: MIGUE Electronically Signed By:SANDY CORTEZ DO Transcribed By: OLGA Signed By Sandy Cortez DO 06/18 1728 Normal [facility] Eosinophils Auto (Bld) [#/Vo l]Ordered By: Arslan Shane on 06-18-2023 Eosinophils (Bld) [#/Vol] 0.1 10*3/uL 0.0-0.45 [facility] Eosinophils/100 WBC Auto (Bl d)Ordered By: Arslan Shane on 06-18-2023 Eosinophils/100 WBC (Bld) 2.3 % . [facility] Erythrocyte distribution wid th Auto (RBC) [Ratio]Ordered By: Arslan Shane on 06-18-2023 Erythrocyte distribution width (RBC) [Ratio] 13.5 % 12.0-14.8 [facility] Glucose [Mass/volume] in Ser um or PlasmaOrdered By: Arslan Shane on 06-18-2023 Glucose [Mass/Vol] 99 mg/dL 70-100 [facility] Comment on above: ADA recommended refe rence rangeRandom Glucose Reference Range is dependent on time and content of last meal. Glucose of more than 200 mg/dL in a nonstressed, ambulatory subject supports the diagnosis of Diabetes Mellitus. Hematocrit Auto (Bld) [Volum e fraction]Ordered By: Arslan Shane on 06-18-2023 Hematocrit (Bld) [Volume fraction] 38.3 % 38.8-50.0 [facility] Hemoglobin [Mass/volume] in BloodOrdered By: Arslan Shane on 06-18-2023 Hemoglobin (Bld) [Mass/Vol] 13.1 g/dL 13.0-17.0 [facility] INR in Platelet poor plasma by Coagulation assayOrdered By: Arslan Shane on 06-18-2023 INR Coag (PPP) [Relative time] 1.0 {INR} [facility] Comment on above: INR Therapeutic Rang e [...] RBC Auto (Bld) [#/Vol] 4.8 10*3/uL 4.1-10.5 [facility] Lymphocytes Auto (Bld) [#/Vo l]Ordered By: Arslan Shane on 06-18-2023 Lymphocytes (Bld) [#/Vol] 1.1 10*3/uL 1.00-4.8 [facility] [facility] Lymphocytes/100 WBC Auto (Bl d)Ordered By: Arslan Shane on 06-18-2023 Lymphocytes/100 WBC (Bld) 23.7 % . [facility] MCH Auto (RBC) [Entitic mass ]Ordered By: Arslan Shane on 06-18-2023 MCH (RBC) [Entitic mass] 30.0 pg 27.5-35.2 [facility] MCHC Auto (RBC) [Mass/Vol]Or dered By: Arslan Shane on 06-18-2023 MCHC (RBC) [Mass/Vol] 34.1 g/dL 32.5-35.6 [facility] MCV Auto (RBC) [Entitic vol] Ordered By: Arslan Shane on 06-18-2023 MCV (RBC) [Entitic vol] 87.9 fL 83.5-101 [facility] Monocytes Auto (Bld) [#/Vol] Ordered By: Arslan Shane on 06-18-2023 Monocytes (Bld) [#/Vol] 0.3 10*3/uL 0.0-0.8 [facility] Monocytes/100 WBC Auto (Bld) Ordered By: Arslan Shane on 06-18-2023 Monocytes/100 WBC (Bld) 7.1 % . [facility] Neutrophils Auto (Bld) [#/Vo l]Ordered By: Arslan Shane on 06-18-2023 Neutrophils (Bld) [#/Vol] 3.2 10*3/uL 1.8-7.7 [facility] Neutrophils/100 WBC Auto (Bl d)Ordered By: Arslan Shane on 06-18-2023 Neutrophils/100 WBC (Bld) 66.5 % . [facility] No Panel InformationOrdered By: Arslan Shane on 06-18-2023 Estimated GFR (CKD-EPI) > 60.0 mL/Min [facility] Creatinine Clearance (Chem N/A [facility] Nucleated erythrocytes [Pres ence] in Blood by Automated countOrdered By: Arslan Shane on 06-18-2023 Nucleated RBC Auto Ql (Bld) 0.0 /100{WBC} 0-0.5 [facility] Partial Thromboplastin Timeo n 06-18-2023 aPTT Coag (Bld) [Time] 27.2 s Normal 25.1-36.5 [facility] Comment on above: Result Comment: A he matocrit value greater than 55% may lead to inaccurate results in coagulation testing. Patients having hematocrit values >55% require a special collection tube for coagulation studies. Please contact the laboratory at [phone] for redraw instructions. PERFORMED BY: [place] [address] PATHOLOGIST MARKER HAND JOS MOYA M.D. Performed By: #### C NANETTE HENRY #### [address] Platelet mean volume Auto (B ld) [Entitic vol]Ordered By: Arslan Shane on 06-18-2023 Platelet mean volume (Bld) [Entitic vol] 7.0 fL 6.6-10.1 [facility] Platelets Auto (Bld) [#/Vol] Ordered By: Arslan Shane on 06-18-2023 Platelets (Bld) [#/Vol] 149 10*3/uL 150-450 [facility] Potassium [Moles/volume] in Serum or PlasmaOrdered By: Arslan Shane on 06-18-2023 Potassium [Moles/Vol] 4.1 mmol/L 3.5-5.1 [facility] Prothrombin Time INRon 06-18 INR Coag (PPP) [Relative time] 1.0 {INR} Normal [facility] Comment on above: Result Comment: INR Therapeutic [...] 3 - 4.5 Performed By: #### C JUNIOR HENRYPLUS #### [facility] [address] [place] [id number] [facility] PT Coag (PPP) [Time] 12.4 s Normal 9.0-12.9 [facility] Comment on above: Result Comment: A he matocrit value greater than 55% may lead to inaccurate results in coagulation testing. Patients having hematocrit values >55% require a special collection tube for coagulation studies. Please contact the laboratory at [phone] for redraw instructions. Performed By: #### C JUNIOR HENRYPLUS #### [facility] [address] [id number] [facility] Prothrombin time (PT)Ordered By: Arslan Shane on 06-18-2023 PT Coag (PPP) [Time] 12.4 s 9.0-12.9 [facility] Comment on above: A hematocrit value g reater than 55% may lead to inaccurate results in coagulation testing. Patients having hematocrit values >55% require a special collection tube for coagulation studies. Please contact the laboratory at [phone] for redraw instructions. RBC Auto (Bld) [#/Vol]Ordere d By: Arslan Shane on 06-18-2023 RBC (Bld) [#/Vol] 4.36 10*6/uL 3.90-5.60 [facility] Serum or plasma anion gap de terminationOrdered By: Arslan Shane on 06-18-2023 Anion gap [Moles/Vol] 7.2 mmol/L 6.0-15.0 [facility] Sodium [Moles/volume] in Ser um or PlasmaOrdered By: Arslan Shane on 06-18-2023 Sodium [Moles/Vol] 140 mmol/L 136-145 [facility] Urea nitrogen [Mass/volume] in Serum or PlasmaOrdered By: Arslan Shane on 06-18-2023 Urea nitrogen [Mass/Vol] 23 mg/dL 7-25 [facility] WBC Auto (Bld) [#/Vol]Ordere d By: Arslan Shane on 06-18-2023 WBC (Bld) [#/Vol] 4.8 10*3/uL 4.1-10.5 [facility] 24 Hr Urine Uric Acidon 02-26 Uric Acid, 24 Hr Urine 675.0 Normal 182.4-936. 8 [facility] Comment on above: Order Comment: URINE VOLUME (MILLILTERS): 1350 Result Comment: Perf ormed at: - [facility] [address] [id number] Osteology Teacher: Sunil Merino PhD, Phone: [phone] Performed By: #### C ITRIC UR, PHOS 24HRU, OXAL 24HRU, URIC 24HRU, U24 CA, MAG 24HRU ####[facility] ,#### U24 NA, CREA24, COL T V ####[place] [id number] [address] Urine Uric Acid 50.0 mg/dL Normal Not Estab. [facility] Comment on above: Order Comment: URINE VOLUME (MILLILTERS): 1350 Performed By: #### C ITRIC UR, PHOS 24HRU, OXAL 24HRU, URIC 24HRU, U24 CA, MAG 24HRU ####[facility] ,#### U24 NA, CREA24, COL T V ####[address] 24 hour urine sodium measure ment (moles/time)Ordered By: Arslan Shane on 03-26-2023 Sodium (24H U) [Moles/Time] 119 mmol/24 40-220 [facility] 24 hour urine uric acid jaciel urement (mass/time)Ordered By: Arslan Shane on 03-26-2023 Urate (24H U) [Mass/Time] 675.0 mg/24 hr 182.4-936. 8 [facility] Comment on above: Performed at: - L sherri [address] [id number] Director: Sunil Merino PhD, Phone: [phone] Blood Urea Nitrogenon 2022 Urea nitrogen [Mass/Vol] 17 mg/dL Normal 7-25 [facility] Comment on above: Performed By: #### C UU, OSMANYONUAPLUS #### [facility] [address] biopsyOrdered By: Arslan Shane on 03-26-2023 CT biopsy 24 Hours [facility] Calciumon 03-26-2023 Calcium [Mass/Vol] 8.9 mg/dL Normal 8.6-10.3 [facility] Comment on above: Performed By: #### C UU, ADDONUAPLUS #### [facility] [address] Calcium [Mass/time] in 24 ho ur UrineOrdered By: Arslan Shane on 03-26-2023 Calcium (24H U) [Mass/Time] 259 mg/24 hr 0-320 [facility] Calcium [Mass/volume] in 24 hour UrineOrdered By: Arslan Shane on 03-26-2023 Calcium (24H U) [Mass/Vol] 19.2 mg/dL Not Estab. [facility] Calcium [Mass/volume] in Ser um or PlasmaOrdered By: Arslan Shane on 03-26-2023 Calcium [Mass/Vol] 8.9 mg/dL 8.6-10.3 [facility] Calcium, 24Hr Urineon 2022 Calcium, Urine 19.2 mg/dL Normal Not Estab. [facility] Comment on above: Order Comment: URINE VOLUME (MILLILTERS): 1350 Performed By: #### C ITRIC UR, PHOS 24HRU, OXAL 24HRU, URIC 24HRU, U24 CA, MAG 24HRU ####[facility] ,#### U24 NA, CREA24, COL T V ####[facility] [id number] [place] [id number] [place] Calcium, Urine 24 Hr 259 Normal 0-320 [facility] Comment on above: Order Comment: URINE VOLUME (MILLILTERS): 1350 Performed By: #### C ITRIC UR, PHOS 24HRU, OXAL 24HRU, URIC 24HRU, U24 CA, MAG 24HRU ####[facility] ,#### U24 NA, CREA24, COL T V ####[place] [address] [place] [id number] [facility] Carbon dioxide, total [Moles /volume] in Serum or PlasmaOrdered By: Arslan Shane on 03-26-2023 CO2 [Moles/Vol] 31.0 mmol/L 21.0-31.0 [facility] Chloride [Moles/volume] in S renny or PlasmaOrdered By: Arslan Shane on 03-26-2023 Chloride [Moles/Vol] 104 mmol/L 98-107 [facility] Citric Acid, Urine, 24 Houro n 03-26-2023 Citric Acid, Urine 290 mg/L Normal Undefined [facility] Comment on above: Order Comment: URINE VOLUME (MILLILTERS): 1350 Performed By: #### C ITRIC UR, PHOS 24HRU, OXAL 24HRU, URIC 24HRU, U24 CA, MAG 24HRU ####[facility] ,#### U24 NA, CREA24, COL T V ####[place] [id number] [facility] Citric Acid, Urine, 24HR 392 Normal 320-1240 [facility] Comment on above: Order Comment: URINE VOLUME (MILLILTERS): 1350 Result Comment: This test was developed and its performance characteristics determined by [facility]. It has not been cleared or approved by the Food and Drug Administration. Performed at: [address] [id number] Osteology Teacher: Akilah Mcfarlane MD, Phone: [phone] PERFORMED BY: [facility] [address] [place] [address] PATHOLOGIST MARKER HAND JOS MOYA M.D. Performed By: #### C ITRIC UR, PHOS 24HRU, OXAL 24HRU, URIC 24HRU, U24 CA, MAG 24HRU ####[facility] ,#### U24 NA, CREA24, COL T V ####[place] [address] [address] Erma Time and Vol 24 hr uron 03-26-2023 Total Volume, Urine 1350 Normal [facility] Comment on above: Order Comment: URINE COLLECTION TIME (HRS): 24 URINE VOLUME (MILLILTERS): 1350 Result Comment: PERF ORMED BY: [address] [place] [address] PATHOLOGIST MARKER HAND JOS MOYA M.D. Performed By: #### C ITRIC UR, PHOS 24HRU, OXAL 24HRU, URIC 24HRU, U24 CA, MAG 24HRU ####[facility] ,#### U24 NA, CREA24, COL T V ####[address] Urine Collection Time 24 Normal [facility] Comment on above: Order Comment: URINE COLLECTION TIME (HRS): 24 URINE VOLUME (MILLILTERS): 1350 Performed By: #### C ITRIC UR, PHOS 24HRU, OXAL 24HRU, URIC 24HRU, U24 CA, MAG 24HRU ####[facility] ,#### U24 NA, CREA24, COL T V ####[address] Creatinineon 03-26-2023 Creatinine [Mass/Vol] 0.93 mg/dL Normal 0.70-1.30 [facility] Comment on above: Performed By: #### C UU, ADDONUAPLUS #### [facility] [address] [place] [address] [place] GFR/1.73 sq M.predicted MDRD (S/P/Bld) [Vol rate/Area] mL/min/{1.73_m2} Normal [facility] Comment on above: Performed By: #### C UU, ADDONUAPLUS #### [facility] [address] [place] [address] [place] Creatinine [Mass/volume] in Serum or PlasmaOrdered By: Arslan Shane on 03-26-2023 Creatinine [Mass/Vol] 0.93 mg/dL 0.70-1.30 [facility] Creatinine [Mass/volume] in UrineOrdered By: Arslan Shane on 03-26-2023 Creatinine (U) [Mass/Vol] 129.00 mg/dL 14.00-26.0 0 [facility] Creatinine, 24 Hr Urineon Creatinine 24 Hour, Urine 1.74 g/24_hr Normal 1.00-2.09 [facility] Comment on above: Order Comment: URINE COLLECTION TIME (HRS): 24 URINE VOLUME (MILLILTERS): 1350 Performed By: #### C UU, ADDONUAPLUS #### [address] Creatinine, Urine 129.00 mg/dL High 14.00-26.0 0 [facility] Comment on above: Order Comment: URINE COLLECTION TIME (HRS): 24 URINE VOLUME (MILLILTERS): 1350 Performed By: #### C UU, ADDONUAPLUS #### [facility] [address] [place] [address] [place] Electrolyteson 03-26-2023 Anion gap [Moles/Vol] 8.0 mmol/L Normal 6.0-15.0 [facility] Comment on above: Performed By: #### C UU, ADDONUAPLUS #### [address] Chloride [Moles/Vol] 104 mmol/L Normal 98-107 [facility] Comment on above: Performed By: #### C UU, ADDONUAPLUS #### [facility] [address] [place] [address] [place] CO2 [Moles/Vol] 31.0 mmol/L Normal 21.0-31.0 [facility] Comment on above: Performed By: #### C UU, ADDONUAPLUS #### [facility] [address] [place] [address] Potassium [Moles/Vol] 4.0 mmol/L Normal 3.5-5.1 [facility] Comment on above: Performed By: #### C UU, ADDONUAPLUS #### [address] [place] [address] [place] Sodium [Moles/Vol] 139 mmol/L Normal 136-145 [facility] Comment on above: Performed By: #### C UU, ADDONUAPLUS #### [facility] [address] Magnesium [Mass/time] in 24 hour UrineOrdered By: Arslan Shane on 03-26-2023 Magnesium (24H U) [Mass/Time] 155.3 mg/24 hr 12.0-293.0 [facility] Magnesium [Mass/volume] in U rineOrdered By: Arslan Shane on 03-26-2023 Magnesium (U) [Mass/Vol] 11.5 mg/dL Not Estab. [facility] Magnesium, Urine 24Hron 02-26 Magnesium, 24Hr Urine 155.3 Normal 12.0-293.0 [facility] Comment on above: Order Comment: URINE VOLUME (MILLILTERS): 1350 Performed By: #### C ITRIC UR, PHOS 24HRU, OXAL 24HRU, URIC 24HRU, U24 CA, MAG 24HRU ####[facility] ,#### U24 NA, CREA24, COL T V ####[facility] [id number] Magnesium, Urine 11.5 mg/dL Normal Not Estab. [facility] Comment on above: Order Comment: URINE VOLUME (MILLILTERS): 1350 Performed By: #### C ITRIC UR, PHOS 24HRU, OXAL 24HRU, URIC 24HRU, U24 CA, MAG 24HRU ####[facility] ,#### U24 NA, CREA24, COL T V ####[facility] [id number] No Panel InformationOrdered By: Arslan Shane on 03-26-2023 Estimated GFR (CKD-EPI) > 60.0 mL/Min [facility] Creatinine Clearance (Chem N/A [facility] Urine Citric Acid 290 mg/L Undefined [facility] Urine Citric Acid 24 Hour 392 mg/24 hr 320-1240 [facility] Comment on above: This test was develo ped and its performance characteristicsdetermined by [employer]. It has not been cleared orapproved by the Food and Drug Administration.Performed at: [address] [id number] Director: Akilah Mcfarlane MD, Phone: [phone] Urine Creatinine 24 Hour 1.74 g/24 hr 1.00-2.09 [facility] Oxalate [Mass/time] in 24 ho ur UrineOrdered By: Arslan Shane on 03-26-2023 Oxalate (24H U) [Mass/Time] 70 mg/24 hr [facility] Comment on above: Performed at: [address] [id number] Director: Akilah Mcfarlane MD, Phone: [phone] Oxalate [Mass/volume] in Uri neOrdered By: Arslan Shane on 03-26-2023 Oxalate (U) [Mass/Vol] 52 mg/L [facility] Oxalate, Quant, 24Hr Urineon 03-26-2023 Oxalates, Urine 52 mg/L Normal [facility] Comment on above: Order Comment: URINE VOLUME (MILLILTERS): 1350 Performed By: #### C ITRIC UR, PHOS 24HRU, OXAL 24HRU, URIC 24HRU, U24 CA, MAG 24HRU ####[facility] ,#### U24 NA, CREA24, COL T V ####[facility] [id number] [place] [address] [facility] Oxalates, Urine 24Hr [address] [place] [address] Comment on above: Order Comment: URINE VOLUME (MILLILTERS): 1350 Result Comment: Perf ormed at: [address] [id number] Osteology Teacher: Akilah Mcfarlane MD, Phone: [phone] Performed By: #### C ITRIC UR, PHOS 24HRU, OXAL 24HRU, URIC 24HRU, U24 CA, MAG 24HRU ####[facility] ,#### U24 NA, CREA24, COL T V ####[facility] [id number] [place] [id number] [facility] Parathyrin.intact [Mass/volu me] in Serum or PlasmaOrdered By: Arslan Shane on 03-26-2023 Parathyrin.intact [Mass/Vol] 48.1 pg/mL [facility] Parathyroid Hormone Intacton 03-26-2023 Parathyroid Hormone Intact 48.1 pg/mL Normal [facility] Comment on above: Result Comment: PERF ORMED BY: [facility] [address] [place] [address] PATHOLOGIST MARKER HAND JOS MOYA M.D. Performed By: #### C UU, ADDONUAPLUS #### [facility] [address] [place] [address] [place] Phosphate [Mass/time] in 24 hour UrineOrdered By: Arslan Shane on 03-26-2023 Phosphate (24H U) [Mass/Time] 1512 mg/24 hr 390-1425 [facility] Phosphate [Mass/volume] in U rineOrdered By: Arslan Shane on 03-26-2023 Phosphate (U) [Mass/Vol] 112.0 mg/dL Not Estab. [facility] Phosphorus, 24Hr Urineon Phosphorous, Urine 112.0 mg/dL Normal Not Estab. [facility] Comment on above: Order Comment: URINE VOLUME (MILLILTERS): 1350 Performed By: #### C ITRIC UR, PHOS 24HRU, OXAL 24HRU, URIC 24HRU, U24 CA, MAG 24HRU ####[facility] ,#### U24 NA, CREA24, COL T V ####[facility] [id number] [place] [id number] [place] Phosphorus, Urine 24Hr 1512 High 390-1425 [facility] Comment on above: Order Comment: URINE VOLUME (MILLILTERS): 1350 Performed By: #### C ITRIC UR, PHOS 24HRU, OXAL 24HRU, URIC 24HRU, U24 CA, MAG 24HRU ####[facility] ,#### U24 NA, CREA24, COL T V ####[place] [address] [place] [id number] [facility] Potassium [Moles/volume] in Serum or PlasmaOrdered By: Arslan Shane on 03-26-2023 Potassium [Moles/Vol] 4.0 mmol/L 3.5-5.1 [facility] Serum or plasma anion gap de terminationOrdered By: Arslan Shane on 03-26-2023 Anion gap [Moles/Vol] 8.0 mmol/L 6.0-15.0 [facility] Sodium [Moles/volume] in Ser um or PlasmaOrdered By: Arslan Shane on 03-26-2023 Sodium [Moles/Vol] 139 mmol/L 136-145 [facility] Sodium [Moles/volume] in Uri neOrdered By: Arslan Shane on 03-26-2023 Sodium (U) [Moles/Vol] 88.0 mmol/L Normal [facility] Comment on above: No reference range e stablished Order Comment: URINE COLLECTION TIME (HRS): 24 URINE VOLUME (MILLILTERS): 1350 Result Comment: No r eference range established Performed By: #### C ITRIC UR, PHOS 24HRU, OXAL 24HRU, URIC 24HRU, U24 CA, MAG 24HRU ####[facility] ,#### U24 NA, CREA24, COL T V ####[place] [address] [place] [id number] [place] Sodium, 24 Hr Urineon 2022 Sodium 24 Hour Urine 119 Normal 40-220 [facility] Comment on above: Order Comment: URINE COLLECTION TIME (HRS): 24 URINE VOLUME (MILLILTERS): 1350 Performed By: #### C ITRIC UR, PHOS 24HRU, OXAL 24HRU, URIC 24HRU, U24 CA, MAG 24HRU ####[facility] ,#### U24 NA, CREA24, COL T V ####[place] [address] [place] [id number] [place] Urate [Mass/volume] in Serum or PlasmaOrdered By: Arslan Shane on 03-26-2023 Urate [Mass/Vol] 6.5 mg/dL 4.4-7.6 [facility] Urea nitrogen [Mass/volume] in Serum or PlasmaOrdered By: Arslan Shane on 03-26-2023 Urea nitrogen [Mass/Vol] 17 mg/dL 7-25 [facility] Uric Acidon 03-26-2023 Urate [Mass/Vol] 6.5 mg/dL Normal 4.4-7.6 [facility] Comment on above: Result Comment: PERF ORMED BY: [place] [address] PATHOLOGIST MARKER HAND JOS MOYA M.D. Performed By: #### C UU, ADDONUAPLUS #### [address] Urine uric acid measurement (mass/volume)Ordered By: Arslan Shane on 03-26-2023 Urate (U) [Mass/Vol] 50.0 mg/dL Not Estab. [facility] Urine volume measurementOrde red By: Arslan Shane on 03-26-2023 Specimen volume (U) 1350 ml [facility] Alanine aminotransferase [En zymatic activity/volume] in Serum or PlasmaOrdered By: Regi Bullimore on 01-08-2023 ALT [Catalytic activity/Vol] 16 U/L 7-52 [facility] Albumin [Mass/volume] in Ser um or Plasma by Bromocresol green (BCG) dye binding methoOrdered By: Regi Bullimore on 01-08-2023 Albumin BCG dye [Mass/Vol] 4.0 g/dL 3.5-5.7 [facility] Alkaline phosphatase [Enzyma tic activity/volume] in Serum or PlasmaOrdered By: Regi Bullimore on 01-08-2023 ALP [Catalytic activity/Vol] 54 U/L 34-104 [facility] Aspartate aminotransferase [ Enzymatic activity/volume] in Serum or PlasmaOrdered By: Regi Bullimore on 01-08-2023 AST [Catalytic activity/Vol] 13 U/L 13-39 [facility] Automated erythrocytes count in urine sediment (number/area)Ordered By: Regi Lowery on 01-08-2023 RBC Auto (Urine sed) [#/Area] Innumerable [HPF] 0-4 [facility] Automated leukocytes count i n urine sediment (number/area)Ordered By: Regi Crewsimore on 01-08-2023 WBC Auto (Urine sed) [#/Area] 20-49 [HPF] 0-4 [facility] Basophils Auto (Bld) [#/Vol] Ordered By: Regi Crewsimore on 01-08-2023 Basophils (Bld) [#/Vol] 0.0 10*3/uL 0.0-0.2 [facility] Basophils/100 WBC Auto (Bld) Ordered By: Regi Crewsimore on 01-08-2023 Basophils/100 WBC (Bld) 0.3 % . [facility] Bilirubin Test strip Ql (U)O rdered By: Regi Lowery on 01-08-2023 Bilirubin Ql (U) Negative Negative [facility] Bilirubin.total [Mass/volume ] in Serum or PlasmaOrdered By: Regi Lowery on 01-08-2023 Bilirubin [Mass/Vol] 0.7 mg/dL 0.3-1.0 [facility] Calcium [Mass/volume] in Ser um or PlasmaOrdered By: Regi Crewsimore on 01-08-2023 Calcium [Mass/Vol] 8.4 mg/dL 8.6-10.3 [facility] Carbon dioxide, total [Moles /volume] in Serum or PlasmaOrdered By: Regi Crewsimore on 01-08-2023 CO2 [Moles/Vol] 29.5 mmol/L 21.0-31.0 [facility] Chloride [Moles/volume] in S renny or PlasmaOrdered By: Regi Crewsimore on 01-08-2023 Chloride [Moles/Vol] 104 mmol/L 98-107 [facility] Color Auto (U)Ordered By: Sona Lowery on 01-08-2023 Color (U) Dark yellow Yellow [facility] Complete Blood Count Auto Di ffon 01-08-2023 Basophils (Bld) [#/Vol] 0.0 10*3/uL Normal 0.0-0.2 [facility] Comment on above: Result Comment: PERF ORMED BY: [place] [address] PATHOLOGIST MARKER HAND JOS MOYA M.D. Performed By: #### C BC, CMP #### [place] [address] [place] Basophils/100 WBC (Bld) 0.3 % Normal . [facility] Comment on above: Performed By: #### C BC, CMP #### [place] [address] [place] Eosinophils (Bld) [#/Vol] 0.1 10*3/uL Normal 0.0-0.45 [facility] Comment on above: Performed By: #### C BC, CMP #### [place] [address] [place] Eosinophils/100 WBC (Bld) 2.4 % Normal . [facility] Comment on above: Performed By: #### C BC, CMP #### [address] Erythrocyte distribution width (RBC) [Ratio] 13.1 % Normal 12.0-14.8 [facility] Comment on above: Performed By: #### C BC, CMP #### [address] Hematocrit (Bld) [Volume fraction] 40.0 % Normal 38.8-50.0 [facility] Comment on above: Performed By: #### C BC, CMP #### [place] [address] [place] Hemoglobin (Bld) [Mass/Vol] 13.5 g/dL Normal 13.0-17.0 [facility] Comment on above: Performed By: #### C BC, CMP #### [place] [address] [place] Lymphocytes (Bld) [#/Vol] 1.0 10*3/uL Normal 1.00-4.8 [facility] Comment on above: Performed By: #### C BC, CMP #### [address] Lymphocytes/100 WBC (Bld) 19.0 % Normal . [facility] Comment on above: Performed By: #### C BC, CMP #### [facility] [address] MCH (RBC) [Entitic mass] 29.3 pg Normal 27.5-35.2 [facility] Comment on above: Performed By: #### C BC, CMP #### [address] MCV (RBC) [Entitic vol] 86.9 fL Normal 83.5-101 [facility] Comment on above: Performed By: #### C BC, CMP #### [address] Mean Corpuscular HGB Conc 33.7 g/dL Normal 32.5-35.6 [facility] Comment on above: Performed By: #### C BC, CMP #### [address] Monocytes (Bld) [#/Vol] 0.4 10*3/uL Normal 0.0-0.8 [facility] Comment on above: Performed By: #### C BC, CMP #### [address] Monocytes/100 WBC (Bld) 17.49 % Normal 0.00-20.00 [facility] Comment on above: Performed By: #### C BC, CMP #### [place] [address] [place] Monocytes/100 WBC (Bld) 6.9 % Normal . [facility] Comment on above: Performed By: #### C BC, CMP #### [address] Neutrophils (Bld) [#/Vol] 3.8 10*3/uL Normal 1.8-7.7 [facility] Comment on above: Performed By: #### C BC, CMP #### [facility] [address] Neutrophils/100 WBC (Bld) 71.4 % Normal . [facility] Comment on above: Performed By: #### C BC, CMP #### [facility] [address] NRBC% 0.1 /100{WBC} Normal 0-0.5 [facility] Comment on above: Performed By: #### C BC, CMP #### [facility] [address] Platelet mean volume (Bld) [Entitic vol] 7.4 fL Normal 6.6-10.1 [facility] Comment on above: Performed By: #### C BC, CMP #### [address] Platelets (Bld) [#/Vol] 149 10*3/uL Low 150-450 [facility] Comment on above: Performed By: #### C BC, CMP #### [address] RBC (Bld) [#/Vol] 4.60 10*6/uL Normal 3.90-5.60 [facility] Comment on above: Performed By: #### C BC, CMP #### [address] WBC (Bld) [#/Vol] 5.3 10*3/uL Normal 4.1-10.5 [facility] Comment on above: Performed By: #### C BC, CMP #### [address] Comprehensive Metabolic Pane tiff 01-08-2023 Albumin [Mass/Vol] 4.0 g/dL Normal 3.5-5.7 [facility] Comment on above: Performed By: #### C BC, CMP #### [address] Albumin/Globulin [Mass ratio] 1.7 {ratio} Normal [facility] Comment on above: Performed By: #### C BC, CMP #### [facility] [address] [id number] [facility] ALP [Catalytic activity/Vol] 54 U/L Normal 34-104 [facility] Comment on above: Performed By: #### C BC, CMP #### [facility] [address] ALT [Catalytic activity/Vol] 16 U/L Normal 7-52 [facility] Comment on above: Performed By: #### C BC, CMP #### [facility] [address] Anion gap [Moles/Vol] 7.6 mmol/L Normal 6.0-15.0 [facility] Comment on above: Performed By: #### C BC, CMP #### [address] AST [Catalytic activity/Vol] 13 U/L Normal 13-39 [facility] Comment on above: Performed By: #### C BC, CMP #### [address] Bilirubin [Mass/Vol] 0.7 mg/dL Normal 0.3-1.0 [facility] Comment on above: Performed By: #### C BC, CMP #### [address] Calcium [Mass/Vol] 8.4 mg/dL Low 8.6-10.3 [facility] Comment on above: Performed By: #### C BC, CMP #### [facility] [address] [place] [address] [place] Chloride [Moles/Vol] 104 mmol/L Normal 98-107 [facility] Comment on above: Performed By: #### C BC, CMP #### [address] CO2 [Moles/Vol] 29.5 mmol/L Normal 21.0-31.0 [facility] Comment on above: Performed By: #### C BC, CMP #### [facility] [address] [place] [address] [place] Creatinine [Mass/Vol] 0.91 mg/dL Normal 0.70-1.30 [facility] Comment on above: Performed By: #### C BC, CMP #### [address] Creatinine Clr Calc Pharmacy 95.04 [facility] Comment on above: Result Comment: PERF ORMED BY: [place] [address] PATHOLOGIST MARKER HAND JOS MOYA M.D. Performed By: #### C BC, CMP #### [address] GFR/1.73 sq M.predicted MDRD (S/P/Bld) [Vol rate/Area] mL/min/{1.73_m2} [facility] Comment on above: Performed By: #### C BC, CMP #### [address] Globulin (S) [Mass/Vol] 2.4 g/dL [facility] Comment on above: Performed By: #### C BC, CMP #### [address] Glucose [Mass/Vol] 100 mg/dL Normal 70-100 [facility] Comment on above: Result Comment: [place] Glucose Reference Range is dependent on time and content of last meal. Glucose of more than 200 mg/dL in a nonstressed, ambulatory subject supports the diagnosis of Diabetes Mellitus. ADA recommended reference range Performed By: #### C BC, CMP #### [address] Potassium [Moles/Vol] 4.1 mmol/L Normal 3.5-5.1 [facility] Comment on above: Performed By: #### C BC, CMP #### [address] Protein [Mass/Vol] 6.4 g/dL Normal 6.4-8.9 [facility] Comment on above: Performed By: #### C BC, CMP #### [facility] [address] [place] [address] [place] Sodium [Moles/Vol] 137 mmol/L Normal 136-145 [facility] Comment on above: Performed By: #### C BC, CMP #### [facility] [address] [place] [address] [place] Urea nitrogen [Mass/Vol] 17 mg/dL Normal 7-25 [facility] Comment on above: Performed By: #### C BC, CMP #### [facility] [address] Creatinine [Mass/volume] in Serum or PlasmaOrdered By: Regi Lowery on 01-08-2023 Creatinine [Mass/Vol] 0.91 mg/dL 0.70-1.30 [facility] Dipstick and Microscopicon 0 01-08-2023 Appearance (U) Turbid Critically abnormal Clear [facility] Comment on above: Order Comment: Name Collection Type:: Clean-Voided Midstream Performed By: #### C UU, ADDONUAPLUS #### [place] [address] [place] Bacteria,Urine None Seen Normal None Seen [facility] Comment on above: Order Comment: Name Collection Type:: Clean-Voided Midstream Performed By: #### C UU, ADDONUAPLUS #### [facility] [address] [place] [address] [place] Bilirubin,Urine Negative Normal Negative [facility] Comment on above: Order Comment: Name Collection Type:: Clean-Voided Midstream Performed By: #### C UU, ADDONUAPLUS #### [place] [address] [place] Color (U) Dark Yellow Critically abnormal Yellow [facility] Comment on above: Order Comment: Name Collection Type:: Clean-Voided Midstream Performed By: #### C UU, ADDONUAPLUS #### [facility] [address] [place] [address] [place] Glucose Ql (U) Normal Normal Normal [facility] Comment on above: Order Comment: Name Collection Type:: Clean-Voided Midstream Performed By: #### C UU, ADDONUAPLUS #### [facility] [address] [place] [address] [place] Hyaline Casts,Urine 0-8 Normal 0-8 [facility] Comment on above: Order Comment: Name Collection Type:: Clean-Voided Midstream Result Comment: PERF ORMED BY: [place] [address] PATHOLOGIST MARKER HAND JOS MOYA M.D. Performed By: #### C UU, ADDONUAPLUS #### [facility] [address] [place] [address] Ketones Ql (U) Trace High Negative [facility] Comment on above: Order Comment: Name Collection Type:: Clean-Voided Midstream Performed By: #### C UU, ADDONUAPLUS #### [address] Leukocyte esterase Test strip Ql (U) 2+ High Negative [facility] Comment on above: Order Comment: Name Collection Type:: Clean-Voided Midstream Performed By: #### C UU, ADDONUAPLUS #### [facility] [address] [place] [address] [place] Nitrite,Urine Negative Normal Negative [facility] Comment on above: Order Comment: Name Collection Type:: Clean-Voided Midstream Performed By: #### C UU, ADDONUAPLUS #### [facility] [address] [place] [address] [place] Occult Blood,Urine 3+ High Negative [facility] Comment on above: Order Comment: Name Collection Type:: Clean-Voided Midstream Result Comment: PERF ORMED BY: [place] [address] PATHOLOGIST MARKER HAND JOS MOYA M.D. Performed By: #### C UU, ADDONUAPLUS #### [facility] [address] [place] [address] [place] pH (U) 6.0 [pH] Normal 5.0-9.0 [facility] Comment on above: Order Comment: Name Collection Type:: Clean-Voided Midstream Performed By: #### C UU, ADDONUAPLUS #### [facility] [address] [place] [address] Protein (U) [Mass/Vol] 100 mg/dL High Negative [facility] Comment on above: Order Comment: Name Collection Type:: Clean-Voided Midstream Performed By: #### C UU, ADDONUAPLUS #### [address] RBC,Urine Innumerable High 0-4 [facility] Comment on above: Order Comment: Name Collection Type:: Clean-Voided Midstream Performed By: #### C UU, ADDONUAPLUS #### [address] Specificy Wallace,Urine 1.029 Normal 1.001-1.03 0 [facility] Comment on above: Order Comment: Name Collection Type:: Clean-Voided Midstream Performed By: #### C UU, ADDONUAPLUS #### [address] Squamous Epithelial Cell,Urine 3-4 High 0-2 [facility] Comment on above: Order Comment: Name Collection Type:: Clean-Voided Midstream Performed By: #### C UU, ADDONUAPLUS #### [address] Urobilinogen,Urine Normal Normal Normal [facility] Comment on above: Order Comment: Name Collection Type:: Clean-Voided Midstream Performed By: #### C UU, ADDONUAPLUS #### [address] WBC,Urine 20-49 High 0-4 [facility] Comment on above: Order Comment: Name Collection Type:: Clean-Voided Midstream Performed By: #### C UU, ADDONUAPLUS #### [address] Eosinophils Auto (Bld) [#/Vo l]Ordered By: Regi Lowery on 01-08-2023 Eosinophils (Bld) [#/Vol] 0.1 10*3/uL 0.0-0.45 [facility] Eosinophils/100 WBC Auto (Bl d)Ordered By: Regi Lowery on 01-08-2023 Eosinophils/100 WBC (Bld) 2.4 % . [facility] Erythrocyte distribution wid th Auto (RBC) [Ratio]Ordered By: Regi Lowery on 01-08-2023 Erythrocyte distribution width (RBC) [Ratio] 13.1 % 12.0-14.8 [facility] Globulin Calc (S) [Mass/Vol] Ordered By: Regidiane Lowery on 01-08-2023 Globulin (S) [Mass/Vol] 2.4 g/dL [facility] Glucose [Mass/volume] in Ser um or PlasmaOrdered By: Regidiane [facility] on 01-08-2023 Glucose [Mass/Vol] 100 mg/dL 70-100 [facility] Comment on above: ADA recommended refe rence rangeRandom Glucose Reference Range is dependent on time and content of last meal. Glucose of more than 200 mg/dL in a nonstressed, ambulatory subject supports the diagnosis of Diabetes Mellitus. Hematocrit Auto (Bld) [Volum e fraction]Ordered By: Regi Lowery on 01-08-2023 Hematocrit (Bld) [Volume fraction] 40.0 % 38.8-50.0 [facility] Hemoglobin [Mass/volume] in BloodOrdered By: Regi Lowery on 01-08-2023 Hemoglobin (Bld) [Mass/Vol] 13.5 g/dL 13.0-17.0 [facility] Ketones Auto test strip (U) [Mass/Vol]Ordered By: Regi Lowery on 01-08-2023 Ketones (U) [Mass/Vol] Trace Negative [facility] Laboratory - UrinalysisOrder ed By: Regi Lowery on 01-08-2023 Hyaline casts LM Ql (Urine sed) 0-8 [LPF] 0-8 [facility] Leukocytes [#/volume] correc juwan for nucleated erythrocytes in Blood by Automated counOrdered By: Regi Lowery on 01-08-2023 WBC corrected for nucl RBC Auto (Bld) [#/Vol] 5.3 10*3/uL 4.1-10.5 [facility] Lymphocytes Auto (Bld) [#/Vo l]Ordered By: Regi Bullimore on 01-08-2023 Lymphocytes (Bld) [#/Vol] 1.0 10*3/uL 1.00-4.8 [facility] Lymphocytes/100 WBC Auto (Bl d)Ordered By: Regi Bullimore on 01-08-2023 Lymphocytes/100 WBC (Bld) 19.0 % . [facility] MCH Auto (RBC) [Entitic mass ]Ordered By: Regi Crewsimore on 01-08-2023 MCH (RBC) [Entitic mass] 29.3 pg 27.5-35.2 [facility] MCHC Auto (RBC) [Mass/Vol]Or dered By: Regi Bullimore on 01-08-2023 MCHC (RBC) [Mass/Vol] 33.7 g/dL 32.5-35.6 [facility] MCV Auto (RBC) [Entitic vol] Ordered By: Regi Bullimore on 01-08-2023 MCV (RBC) [Entitic vol] 86.9 fL 83.5-101 [facility] Monocyte distribution width [Entitic volume] in Blood by AutomatedOrdered By: Regi Crewsimore on 01-08-2023 Monocyte distribution width Auto (Bld) [Entitic vol] 17.49 % 0.00-20.00 [facility] Monocytes Auto (Bld) [#/Vol] Ordered By: Regi Bullimore on 01-08-2023 Monocytes (Bld) [#/Vol] 0.4 10*3/uL 0.0-0.8 [facility] Monocytes/100 WBC Auto (Bld) Ordered By: Regi Bullimore on 01-08-2023 Monocytes/100 WBC (Bld) 6.9 % . [facility] Neutrophils Auto (Bld) [#/Vo l]Ordered By: Regi Bullimore on 01-08-2023 Neutrophils (Bld) [#/Vol] 3.8 10*3/uL 1.8-7.7 [facility] Neutrophils/100 WBC Auto (Bl d)Ordered By: Regi Lowery on 01-08-2023 Neutrophils/100 WBC (Bld) 71.4 % . [facility] Nitrite Test strip Ql (U)Ord ered By: Regi Lowery on 01-08-2023 Nitrite Ql (U) Negative Negative [facility] No Panel InformationOrdered By: Regi Lowery on 01-08-2023 Estimated GFR (CKD-EPI) > 60.0 mL/Min [facility] Creatinine Clearance (Chem 95.04 [facility] Nucleated erythrocytes [Pres ence] in Blood by Automated countOrdered By: Regi Lowery on 01-08-2023 Nucleated RBC Auto Ql (Bld) 0.1 /100{WBC} 0-0.5 [facility] PROTIMEon 01-08-2023 INR Coag (PPP) [Relative time] 0.98 {INR} Normal [facility] Comment on above: Performed By: #### P T, PTT #### [facility] [address] [place] [address] Dr. Yary Vera INR GUIDELINES SEE BELOW Normal [facility] Comment on above: Result Comment: MUR[place]ZA RED INR: 2.0 - 3.0 CONDITIONS NOT LISTED BELOW 2.5 - 3.5 FOR PROSTHETIC HEART VALVE REPLACEMENT 2.5 - 3.5 RECURRENT THROMBOSIS Performed By: #### P T, PTT #### [facility] [address] [place] [address] Dr. Yary Vera PT Coag (PPP) [Time] 10.4 s Normal 9.0-11.[address] [facility] Comment on above: Performed By: #### P T, PTT #### [facility] [address] [place] [address] Dr. Yary Vera PTTon 01-08-2023 aPTT Coag (Bld) [Time] 26.5 s Normal 22.3-36.2 [facility] Comment on above: Performed By: #### P T, PTT #### [facility] [address] [place] [address] Dr. Yary Vera Platelet mean volume Auto (B ld) [Entitic vol]Ordered By: Regi Lowery on 01-08-2023 Platelet mean volume (Bld) [Entitic vol] 7.4 fL 6.6-10.1 [facility] Platelets Auto (Bld) [#/Vol] Ordered By: Regi Bullimore on 01-08-2023 Platelets (Bld) [#/Vol] 149 10*3/uL 150-450 [facility] Potassium [Moles/volume] in Serum or PlasmaOrdered By: Regi Bullimore on 01-08-2023 Potassium [Moles/Vol] 4.1 mmol/L 3.5-5.1 [facility] Protein Auto test strip (U) [Mass/Vol]Ordered By: Regi Bullimore on 01-08-2023 Protein (U) [Mass/Vol] 100 mg/dL Negative [facility] Protein [Mass/volume] in Ser um or PlasmaOrdered By: Regi Bullimore on 01-08-2023 Protein [Mass/Vol] 6.4 g/dL 6.4-8.9 [facility] RBC Auto (Bld) [#/Vol]Ordere d By: Regi Bullimore on 01-08-2023 RBC (Bld) [#/Vol] 4.60 10*6/uL 3.90-5.60 [facility] Serum or plasma albumin/glob ulin mass ratioOrdered By: Regi Bullimore on 01-08-2023 Albumin/Globulin [Mass ratio] 1.7 {ratio} [facility] Serum or plasma anion gap de terminationOrdered By: Regi Bullimore on 01-08-2023 Anion gap [Moles/Vol] 7.6 mmol/L 6.0-15.0 [facility] Sodium [Moles/volume] in Ser um or PlasmaOrdered By: Regi Bullimore on 01-08-2023 Sodium [Moles/Vol] 137 mmol/L 136-145 [facility] Specific gravity Auto test s trip (U) [Rel density]Ordered By: Regi Bullimore on 01-08-2023 Specific gravity (U) [Rel density] 1.029 1.001-1.03 0 [facility] Squamous epithelial cells de tection in urine sediment by light microscopyOrdered By: Regi Lowery on 01-08-2023 Epithelial cells.squamous LM Ql (Urine sed) 3-4 [HPF] 0-2 [facility] Urea nitrogen [Mass/volume] in Serum or PlasmaOrdered By: Regi Lowery on 01-08-2023 Urea nitrogen [Mass/Vol] 17 mg/dL 7-25 [facility] Urine Cultureon 01-08-2023 Bacteria identified Cx Nom (U) No Growth 2 Days PERFORMED BY: [place] [address] PATHOLOGIST MARKER HAND JOS MOYA M.D. [facility] Comment on above: Performed By: #### C UU, ADDONUAPLUS #### [address] Urine bacteria detection by automated methodOrdered By: Regi Lowery on 01-08-2023 Bacteria Auto Ql (U) None seen None Seen [facility] Urine clarity by refractomet ry automatedOrdered By: Regi Lowery on 01-08-2023 Clarity Refractometry automated (U) Turbid Clear [facility] Urine culture routineOrdered By: Regi Lowery on 01-08-2023 Bacteria identified Cx Nom (U) No Growth 2 Days [facility] Urine glucose measurement by automated test strip (mass/volume)Ordered By: Regi Lowery on 01-08-2023 Glucose Auto test strip (U) [Mass/Vol] Normal mg/dL Normal [facility] Urine hemoglobin detection b y automated test stripOrdered By: Regi Lowery on 01-08-2023 Hemoglobin Auto test strip Ql (U) 3+ Negative [facility] Urine leukocyte esterase det ection by automated test stripOrdered By: Regi Lowery on 01-08-2023 Leukocyte esterase Auto test strip Ql (U) 2+ Negative [facility] Urobilinogen Auto test strip (U) [Mass/Vol]Ordered By: Regi Lowery on 01-08-2023 Urobilinogen (U) [Mass/Vol] Normal mg/dL Normal [facility] WBC Auto (Bld) [#/Vol]Ordere d By: Regi Crewsimore on 01-08-2023 WBC (Bld) [#/Vol] 5.3 10*3/uL 4.1-10.5 [facility] pH Auto test strip (U)Ordere d By: Regi Deleonore on 01-08-2023 pH (U) 6.0 [pH] 5.0-9.0 [facility] Automated erythrocytes count in urine sediment (number/area)Ordered By: Carmen Cuello on 01-06-2023 RBC Auto (Urine sed) [#/Area] Innumerable [HPF] 0-4 [facility] Automated leukocytes count i n urine sediment (number/area)Ordered By: Carmen Cuello on 01-06-2023 WBC Auto (Urine sed) [#/Area] 10-19 [HPF] 0-4 [facility] Bilirubin Test strip Ql (U)O rdered By: Carmen Cuello on 01-06-2023 Bilirubin Ql (U) Negative Negative [facility] CT abdomen pelvis wo conon 0 01-06-2023 CT abdomen pelvis wo con [place] [address] CT Scan Report Signed Patient: Carmen Jaramillo MR#: [id number] : 1960 Acct:[id number] Age/Sex: 62 / M ADM Date: 01/06/23 Loc: ER Room: Type: [facility] ER Attending Dr: Copies to: Carmen [...] Rudy Gutierrez M.D.01/06/2023 4:40 PM Dictation Location: [place] [address] Transcribed By: [facility] 01/06/23 1640 Dictated By: Rudy Gutierrez II, MD 01/06/23 1633 Signed By: 01/06/23 1640 Normal [facility] Color Auto (U)Ordered By: Kemi Ceullo on 01-06-2023 Color (U) Yellow Yellow [facility] Dipstick and Microscopicon 0 01-06-2023 Appearance (U) Cloudy Critically abnormal Clear [facility] Comment on above: Order Comment: Name Collection Type:: Clean-Voided Midstream Performed By: #### C UU, ADDONUAPLUS #### [facility] [address] [place] [address] [place] Bacteria,Urine None Seen Normal None Seen [facility] Comment on above: Order Comment: Name Collection Type:: Clean-Voided Midstream Performed By: #### C UU, ADDONUAPLUS #### [facility] [address] [place] [address] [place] Bilirubin,Urine Negative Normal Negative [facility] Comment on above: Order Comment: Name Collection Type:: Clean-Voided Midstream Performed By: #### C UU, ADDONUAPLUS #### [facility] [address] [place] [address] [place] Color (U) Yellow Normal Yellow [facility] Comment on above: Order Comment: Name Collection Type:: Clean-Voided Midstream Performed By: #### C UU, ADDONUAPLUS #### [address] Glucose Ql (U) Normal Normal Normal [facility] Comment on above: Order Comment: Name Collection Type:: Clean-Voided Midstream Performed By: #### C UU, ADDONUAPLUS #### [place] [address] [place] Hyaline Casts,Urine 0-8 Normal 0-8 [facility] Comment on above: Order Comment: Name Collection Type:: Clean-Voided Midstream Result Comment: PERF ORMED BY: [place] [address] PATHOLOGIST MARKER HAND JOS MOYA M.D. Performed By: #### C UU, ADDONUAPLUS #### [facility] [address] [place] [address] [place] Ketones Ql (U) Trace High Negative [facility] Comment on above: Order Comment: Name Collection Type:: Clean-Voided Midstream Performed By: #### C UU, ADDONUAPLUS #### [facility] [address] [place] [address] [place] Leukocyte esterase Test strip Ql (U) 2+ High Negative [facility] Comment on above: Order Comment: Name Collection Type:: Clean-Voided Midstream Performed By: #### C UU, ADDONUAPLUS #### [facility] [address] [place] [address] [place] Nitrite,Urine Negative Normal Negative [facility] Comment on above: Order Comment: Name Collection Type:: Clean-Voided Midstream Performed By: #### C UU, ADDONUAPLUS #### [address] Occult Blood,Urine 3+ High Negative [facility] Comment on above: Order Comment: Name Collection Type:: Clean-Voided Midstream Result Comment: PERF ORMED BY: [place] [address] PATHOLOGIST MARKER HAND JOS MOYA M.D. Performed By: #### C UU, ADDONUAPLUS #### [address] pH (U) 5.5 [pH] Normal 5.0-9.0 [facility] Comment on above: Order Comment: Name Collection Type:: Clean-Voided Midstream Performed By: #### C UU, ADDONUAPLUS #### [facility] [address] [place] [address] Protein (U) [Mass/Vol] 100 mg/dL High Negative [facility] Comment on above: Order Comment: Name Collection Type:: Clean-Voided Midstream Performed By: #### C UU, ADDONUAPLUS #### [facility] [address] [place] [address] [place] RBC,Urine Innumerable High 0-4 [facility] Comment on above: Order Comment: Name Collection Type:: Clean-Voided Midstream Performed By: #### C UU, ADDONUAPLUS #### [facility] [address] [place] [address] [place] Specificy Wallace,Urine 1.016 Normal 1.001-1.03 0 [facility] Comment on above: Order Comment: Name Collection Type:: Clean-Voided Midstream Performed By: #### C UU, ADDONUAPLUS #### [facility] [address] [place] [address] [place] Squamous Epithelial Cell,Urine 1-2 Normal 0-2 [facility] Comment on above: Order Comment: Name Collection Type:: Clean-Voided Midstream Performed By: #### C UU, ADDONUAPLUS #### [facility] [address] [place] [address] Urobilinogen,Urine Normal Normal Normal [facility] Comment on above: Order Comment: Name Collection Type:: Clean-Voided Midstream Performed By: #### C UU, ADDONUAPLUS #### [facility] [address] [place] [address] WBC,Urine 10-19 High 0-4 [facility] Comment on above: Order Comment: Name Collection Type:: Clean-Voided Midstream Performed By: #### C UU, ADDONUAPLUS #### [facility] [address] [place] [address] Ketones Auto test strip (U) [Mass/Vol]Ordered By: Carmen Cuello on 01-06-2023 Ketones (U) [Mass/Vol] Trace Negative [facility] Laboratory - UrinalysisOrder ed By: Carmen Cuello on 01-06-2023 Hyaline casts LM Ql (Urine sed) 0-8 [LPF] 0-8 [facility] Nitrite Test strip Ql (U)Ord ered By: Carmen Cuello on 01-06-2023 Nitrite Ql (U) Negative Negative [facility] Protein Auto test strip (U) [Mass/Vol]Ordered By: Carmen Cuello on 01-06-2023 Protein (U) [Mass/Vol] 100 mg/dL Negative [facility] Specific gravity Auto test s trip (U) [Rel density]Ordered By: Carmen Cuello on 01-06-2023 Specific gravity (U) [Rel density] 1.016 1.001-1.03 0 [facility] Squamous epithelial cells de tection in urine sediment by light microscopyOrdered By: Carmen Cuello on 01-06-2023 Epithelial cells.squamous LM Ql (Urine sed) 1-2 [HPF] 0-2 [facility] Urine Cultureon 01-06-2023 Bacteria identified Cx Nom (U) <9,000 colonies/ml mixed bacterial skin contaminants 2 Days PERFORMED BY: [place] [address] PATHOLOGIST MARKER HAND JOS MOYA M.D. Normal [facility] Comment on above: Performed By: #### C NANETTE HENRY #### [place] [id number] [facility] Urine bacteria detection by automated methodOrdered By: Carmen Cuello on 01-06-2023 Bacteria Auto Ql (U) None seen None Seen [facility] Urine clarity by refractomet ry automatedOrdered By: Carmen Cuello on 01-06-2023 Clarity Refractometry automated (U) Cloudy Clear [facility] Urine culture routineOrdered By: Carmen Cuello on 01-06-2023 Bacteria identified Cx Nom (U) 2 Days [facility] Urine glucose measurement by automated test strip (mass/volume)Ordered By: Carmen Cuello on 01-06-2023 Glucose Auto test strip (U) [Mass/Vol] Normal mg/dL Normal [facility] Urine hemoglobin detection b y automated test stripOrdered By: Carmen Cuello on 01-06-2023 Hemoglobin Auto test strip Ql (U) 3+ Negative [facility] Urine leukocyte esterase det ection by automated test stripOrdered By: Carmen Cuello on 01-06-2023 Leukocyte esterase Auto test strip Ql (U) 2+ Negative [facility] Urobilinogen Auto test strip (U) [Mass/Vol]Ordered By: Carmen Cuello on 01-06-2023 Urobilinogen (U) [Mass/Vol] Normal mg/dL Normal [facility] pH Auto test strip (U)Ordere d By: Carmen Cuello on 01-06-2023 pH (U) 5.5 [pH] 5.0-9.0 [facility] XR Abdomen Single View (KUB) *on 10-10-2021 [...] by Todd Nunez on 10/10/2021 1118 Normal [facility] Carpentry Foreman COVID Quick Testingon 2020 Result Negative And[facility] Other Vital Signs Date Time Vital Sign Value Performing Clinician Facility 06-02-2024 08:52-0400 Body height 173.35 cm [facility] 06-02-2024 08:52-0400 Body mass index (BMI) [Ratio] 30.7 kg/m2 [facility] 06-02-2024 08:52-0400 Body temperature 97.9 [degF] [facility] 06-02-2024 08:52-0400 Body weight 92.53 kg [facility] 06-02-2024 08:52-0400 Diastolic blood pressure 64 mm[Hg] [facility] 06-02-2024 08:52-0400 Heart rate 74 /min [facility] 06-02-2024 08:52-0400 Respiratory rate 18 /min [facility] 06-02-2024 08:52-0400 SaO2% (BldA) [Mass fraction] 95 % [facility] 06-02-2024 08:52-0400 Systolic blood pressure 124 mm[Hg] [facility] 02-04-2024 08:23-0400 Body height 173.35 cm [facility] 02-04-2024 08:23-0400 Body mass index (BMI) [Ratio] 30.3 kg/m2 [facility] 02-04-2024 08:23-0400 Body temperature 98.4 [degF] [facility] 02-04-2024 08:23-0400 Body weight 91.17 kg [facility] 02-04-2024 08:23-0400 Diastolic blood pressure 72 mm[Hg] [facility] 02-04-2024 08:23-0400 Heart rate 70 /min [facility] 02-04-2024 08:23-0400 Respiratory rate 18 /min [facility] 02-04-2024 08:23-0400 SaO2% (BldA) [Mass fraction] 96 % [facility] 02-04-2024 08:23-0400 Systolic blood pressure 122 mm[Hg] [facility] 07-16-2023 11:15-0500 Body height 173.35 cm Noel Danita Other [facility] Other 07-16-2023 11:15-0500 Body mass index (BMI) [Ratio] 30.03 kg/m2 Noel Danita Other [facility] Other 07-16-2023 11:15-0500 Body temperature 97.1 [degF] Noel Danita Other [facility] Other 07-16-2023 11:15-0500 Body weight 90.27 kg Noel Danita Other [facility] Other 07-16-2023 11:15-0500 Diastolic blood pressure 70 mm[Hg] Noel Danita Other [facility] Other 07-16-2023 11:15-0500 Respiratory rate 18 /min Noel Danita Other [facility] Other 07-16-2023 11:15-0500 SaO2% (BldA) [Mass fraction] 98 % Noel Danita Other [facility] Other 07-16-2023 11:15-0500 Systolic blood pressure 120 mm[Hg] Noel Danita Other [facility] Other 06-26-2023 09:18-0400 Diastolic blood pressure 68 mm[Hg] DO Noel Danita Work Phone: [facility] 06-26-2023 09:18-0400 Heart rate 63 /min DO Noel Danita Work Phone: [facility] 06-26-2023 09:18-0400 Respiratory rate 16 /min DO Noel Danita Work Phone: [facility] 06-26-2023 09:18-0400 SaO2% (BldA) [Mass fraction] 98 % DO Noel Danita Work Phone: [facility] 06-26-2023 09:18-0400 Systolic blood pressure 108 mm[Hg] DO Noel Danita Work Phone: [facility] 06-26-2023 07:42-0400 Body height 172.72 cm DO Noel Danita Work Phone: [facility] 06-26-2023 07:42-0400 Body mass index (BMI) [Ratio] 30.4 kg/m2 DO Noel Danita Work Phone: [facility] 06-26-2023 07:42-0400 Body weight 91 kg DO Noel Danita Work Phone: [facility] 06-26-2023 06:28-0400 Body temperature 97.9 [degF] DO Noel Danita Work Phone: [facility] 01-08-2023 12:08-0400 Diastolic blood pressure 68 mm[Hg] DO Noel Danita Work Phone: [facility] 01-08-2023 12:08-0400 Heart rate 62 /min DO Noel Danita Work Phone: [facility] 01-08-2023 12:08-0400 Respiratory rate 18 /min DO Noel Danita Work Phone: [facility] 01-08-2023 12:08-0400 SaO2% (BldA) [Mass fraction] 96 % DO Noel Danita Work Phone: [facility] 01-08-2023 12:08-0400 Systolic blood pressure 126 mm[Hg] DO Noel Danita Work Phone: [facility] 01-08-2023 09:11-0400 Body height 175.26 cm DO Noel Danita Work Phone: [facility] 01-08-2023 09:11-0400 Body temperature 97.8 [degF] DO Noel Danita Work Phone: [facility] 01-08-2023 09:11-0400 Body weight 91 kg DO Noel Danita Work Phone: [facility] 01-06-2023 17:00-0400 Diastolic blood pressure 69 mm[Hg] DO Noel Danita Work Phone: [facility] 01-06-2023 17:00-0400 Heart rate 81 /min DO Noel Danita Work Phone: [facility] 01-06-2023 17:00-0400 Respiratory rate 18 /min DO Noel Danita Work Phone: [facility] 01-06-2023 17:00-0400 SaO2% (BldA) [Mass fraction] 99 % DO Noel Danita Work Phone: [facility] 01-06-2023 17:00-0400 Systolic blood pressure 126 mm[Hg] DO Noel Danita Work Phone: [facility] 01-06-2023 15:57-0400 Body height 172.72 cm DO Noel Danita Work Phone: [facility] 01-06-2023 15:57-0400 Body temperature 98.2 [degF] DO Noel Danita Work Phone: [facility] 01-06-2023 15:57-0400 Body weight 88.8 kg DO Noel Danita Work Phone: [facility] Encounters Encounter Date Encounter Type Care Provider Facility Start: 11-03-2024 ambulatory Arslan Botello ty:[facility] Start: 06-23-2024 ambulatory Arslan Botello ty:[id number] Start: 06-11-2024 End: 06-12-2024 ambulatory Arslan SHANE Facility:CD:[id number] Start: 06-02-2024 End: 06-02-2024 ambulatory NOEL M DANITA Facility:[facility] Start: 06-02-2024 End: 06-02-2024 ambulatory [facility] Work Phone: Start: 06-02-2024 End: 06-02-2024 Patient encounter procedure [facility] Physician [facility] Work Phone: Start: 02-04-2024 End: 02-04-2024 ambulatory [facility] Work Phone: Start: 02-04-2024 End: 02-04-2024 Patient encounter procedure [facility] Physician [facility] Work Phone: Start: 12-24-2023 ambulatory Cj ZELAYA Facility :[facility] Start: 10-29-2023 End: 10-29-2023 ambulatory Arslan SHANE Facility:[facility] Start: 07-16-2023 End: 07-16-2023 ambulatory Noel Danita Other [facility] Other Start: 07-16-2023 Patient encounter procedure Noel Danita [facility] Start: 06-26-2023 End: 06-26-2023 ambulatory Arslan Shane Facility:[facility] Start: 06-26-2023 End: 06-26-2023 Admission to same day surgery center DO Noel Danita Work Phone: [facility] [place] Start: 06-26-2023 End: 06-26-2023 ambulatory DO Noel M. Danita Work Phone: [facility] Work Phone: Start: 06-26-2023 End: 06-26-2023 ambulatory Arslan SHANE Facility::[id number] Start: 06-18-2023 End: 06-18-2023 ambulatory Arslanlilibeth Shane Facility:[facility] Start: 06-18-2023 End: 06-18-2023 ambulatory DO Noel M. Danita Work Phone: [facility] Work Phone: Start: 06-18-2023 End: 06-18-2023 Patient encounter procedure DO Noel Danita Work Phone: [facility] Work Phone: Start: 03-26-2023 End: 03-26-2023 ambulatory Noel Carlos Danita Facility:[facility] Start: 03-26-2023 End: 03-26-2023 ambulatory DO Noel Howell. Danita Work Phone: [facility] Work Phone: Start: 03-26-2023 End: 03-26-2023 Patient encounter procedure DO Noel Danita Work Phone: [facility] [place] Work Phone: Start: 03-12-2023 End: 03-12-2023 ambulatory DO Noel Gonzalez Danita Work Phone: [facility] Work Phone: Start: 03-12-2023 End: 03-12-2023 Patient encounter procedure DO Noel Danita Work Phone: [facility] [place] Work Phone: Start: 01-11-[address] NOEL SAMAYOA Facil ity:[facility] Start: 01-08-2023 End: 01-08-[address] NOEL SAMAYOA Facility:[facility] Start: 01-08-2023 End: 01-08-2023 Emergency department patient visit Noel Samayoa Facility:[facility] Start: 01-08-2023 End: 01-08-2023 Emergency department patient visit DO Noelmalathi HicksDanita Work Phone: [facility] Work Phone: Start: 01-06-2023 End: 01-06-2023 Emergency department patient visit Carmen Cuello Facility:[facility] Start: 01-06-2023 End: 01-06-2023 Emergency department patient visit DO Noel Samayoa Work Phone: [facility] Work Phone: Start: 08-24-2021 End: 08-24-2021 ambulatory Anjel Rizzo Other [employer] Other Start: 08-24-2021 Office outpatient vi sit 5 minutes Anjel Rizzo [facility] [address] Procedures Date Procedure Procedure Detail Performing Clinician Start: 06-26-2023 Extracorporeal shock wave lithotripsy of calculus of kidney DO Noelmalathi Correaes Work Phone: Start: 06-26-2023 Diagnostic radiograp hy of abdomen DO Noelmalathi HicksDanita Work Phone: Start: 01-08-2023 Urine culture DO Noel R uggles Work Phone: Start: 01-06-2023 CT of abdomen and pe lvis without contrast DO Noelmalathi HicksDanita Work Phone: Start: 01-06-2023 Urine culture DO Noel R uggles Work Phone: Plan of Treatment Date Care Activity Detail Author Start: 02-04-2024 Patient referral [facility] Work Phone: Start: 06-26-2023 End: 06-26-2023 [facility] Start: 03-26-2023 [facility] Start: 01-08-2023 Bacteria identified in Urine by Culture [facility] Patient Education Kidney Stones (DC) [facility] Work Phone: Patient referral [facility] Work Phone: Supine abdominal X-ray [facility] Immunizations Immunization Date Immunization Notes Care Provider Fa john paul 07-16-2023 influenza, injectabl e, quadrivalent, contains preservative Noel Danita Other [facility] Other 07-16-2023 influenza, injectabl e, quadrivalent, preservative free [facility] 01-09-2021 COVID-19 Vaccine Pfi zer - Documentation Purposes Only Anjel Rizzo Other [facility] 12-16-2020 COVID-19 Vaccine Pfi zer - Documentation Purposes Only Anjel Rizzo Other [facility] 08-27-2019 influenza, seasonal, injectable Anjel Rizzo Other [facility] 05-29-2016 influenza, injectabl e, quadrivalent, preservative free [facility] 05-29-2016 influenza, injectabl e, quadrivalent, contains preservative Anjel Rizzo Other [facility] Other Payers Date Payer Category Payer Self-pay [id number] 1960 Unknown [id number] 2..[id number]. 2.593 1961 Unknown [id number] 2..840.1.115724.3.579. 2.593 1961 Unknown [id number] 2.16.840.1.603261.3.579. 2.727 1961 Unknown [id number] 2.16.840.1.957860.3.579. 2.727 1961 Unknown [id number] 2.16.840.1.054273.3.579. 2.727 1961 Unknown [id number] 2.16.840.1.064609.3.579. 2.727 1961 Unknown [id number] 2.16.840.1.620586.3.579. 2.727 1961 Unknown [id number] 2.16.840.1.188723.3.579. 2.727 1961 Unknown [id number] 2.16.840.1.555327.3.579. 2.727 1958 Blue Cross Blue Shield [id number] 2.16.840.1.208728.19 Private Health Insurance [facility] [id number] Unknown [id number] 2.16.840.1.893305.3.579. 2.531 Unknown [id number] 2.16.840.1.904578.3.579. 2.531 Unknown [id number] 2.16.840.1.603626.3.579. 2.531 Unknown [id number] 2.16.840.1.050525.3.579. 2.531 Unknown [id number] 2.16.840.1.910690.3.579. 2.531 Worker's Compensation [employer] Misc [id number] Worker's Compensation [facility] [id number] Social History Date Type Detail Facility Unknown if ever smoked And[facility] Other Sex Assigned At Sex Assigned At Bir th [facility] Other Start: 01-08-2023 Tobacco smoking status NHIS Never smoked tobacco (finding) [facility] Start: 1960 Sex Assigned At Male F [facility] Start: 06-18-2023 End: 06-02-2024 Tobacco smoking status NHIS Ex-smoker (finding) [facility] Medical Equipment Procedure Code Equipment Code Equipment Origin al Text Equipment Identifier Dates Cystoscopy, with ureteral calculus manipulation and stent placement Polymeric ureteral stent [id number] Start: 02-16-2021 Goals Date Patient Goal Desired Activity /State Clinical Notes 11-26-2019 to 06-11-2024 Note Date & Type Note Facility 06-11-2024 Note Patient Education Nephrology Laser Therapy for Kidney Stones, Care After After laser therapy for kidney stones, it is common to have: ? Pain. ? A burning feeling when you pee (urinate). ? Small amounts of blood in your pee (urine). ? A need to pee a lot. ? Parts of the kidney stone in your pee. ? Mild discomfort in your back when you pee. You may have this if you had a small mesh tube (stent) placed during the procedure. Follow these instructions at home: Medicines ? Take jutm-qqb-fdnoaae and prescription medicines only as told by your health care provider. ? If you were prescribed antibiotics, take them as told by your provider. Do not stop using the antibiotic even if you start to feel better. ? Ask your provider if the medicine prescribed to you: ? Requires you to avoid driving or using machinery. ? Can cause constipation. You may need to take these actions to prevent or treat constipation: ? Drink enough fluid to keep your pee pale yellow. ? Take kkwi-bip-mmeiuic or prescription medicines. ? Eat foods that are high in fiber, such as beans, whole grains, and fresh fruits and vegetables. ? Limit foods that are high in fat and processed sugars, such as fried or sweet foods. Activity ? If you were given a sedative during the procedure, it can affect you for several hours. Do not drive or operate machinery until your provider says that it is safe. ? Return to your normal activities as told by your provider. Ask your provider what activities are safe for you. General instructions ? Your provider may recommend that you drink a lot of water for a few hours after your procedure. If you have heart or kidney disease, ask your provider how much you should drink. ? You may be asked to strain your pee to collect any stone pieces that you pass. Your provider may have these pieces tested. ? Do not take baths, swim, or use a hot tub until your provider approves. Ask your provider if you may take warm baths to soothe the burning. ? Keep all follow-up visits. If you have a stent, you will need to go back to your provider to have it removed. Your provider may give you more instructions. Make sure you know what you can and cannot do. Contact a health care provider if: ? You have pain or a burning feeling that lasts for more than 2 days. ? You feel nauseous. ? You vomit more and more often. ? You have trouble peeing. ? You have pain that gets worse or does not get better with medicine. ? You have a fever or shaking chills. Get help right away if: ? You cannot pee, even when your bladder feels full. ? You faint. ? You have chest pain, shortness of breath, or cough up blood. ? You have: ? Bright red blood or blood clots in your pee. ? Severe pain or discomfort. ? Pain in your abdomen. ? Swelling in your legs. These symptoms may be an emergency. Get help right away. Call 911. ? Do not wait to see if the symptoms will go away. ? Do not drive yourself to the hospital. This information is not intended to replace advice given to you by your health care provider. Make sure you discuss any questions you have with your health care provider. Document Revised: 04/13/2023 Document Reviewed: 04/13/2023 [employer] Patient Education ? 2023 [employer] Laser Therapy for Kidney Stones Laser therapy for kidney stones is a procedure to break up rock-like masses that form inside the kidneys (kidney stones). It is done using a device that beams a strong light (laser) on the kidney stones. This breaks the stones up into small pieces. These small pieces may leave your body when you pee (urinate) or may be taken out during the procedure. You may need laser therapy if you have kidney stones that are painful or that are stopping you from being able to pee. Tell a health care provider about: ? Any allergies you have. ? All medicines you are taking, including vitamins, herbs, eye drops, creams, and hbpf-ivy-eacsudk medicines. ? Any problems you or family members have had with anesthesia. ? Any bleeding problems you have. ? Any surgeries you have had. ? Any medical conditions you have. ? Whether you are or may be . What are the risks? Your health care provider will talk with you about risks. These may include: ? Infection. ? Bleeding. ? Allergic reactions to medicines. ? Damage to: ? The part of your body that drains pee (urine) from the bladder (urethra). ? The bladder. ? The tube that connects the bladder to the kidneys (ureter). ? Urinary tract infection (UTI). ? Urethral stricture. This is when the urethra is narrowed by scarring. ? Trouble peeing. ? Blockage of the kidney. This may be caused by a piece of kidney stone. What happens before the procedure? When to stop eating and drinking Follow instructions from your provider about what you may eat and drink. These may include: ? 8 hours before the procedure ? Stop eating most foods. Do not e (more content not included)... [facility] 07-16-2023 Evaluation note Encounter Date Diagnosis Assessment Notes Jun, Olecranon bursitis of left elbow (ICD-10 - M70.22) Jun, Flu vaccine need (ICD-10 - Z23) [facility] Other 12-29-2021 Evaluation note* Encounter Date Diagnosis Assessment Notes Treatment Notes Treatment Clinical Notes Jul, Contact with and (suspected) exposure [...] Patient care instructions given in writting by [facility] At Home document. And[facility] Other 04-01-2020 History general Narrative - Reported* Type Description Date Medical History genital herpes Medical History hypercholesterolemia Medical History kidney stones Medical History left knee torn meniscus (11/2019) Surgical History Left Kidney stone 12/2015 Surgical History left knee scope with medial men isectomy, chondroplasty 04/2020 Hospitalization History Left Kidney stone [facility] Other 04-01-2020 History general Narrative - Reported* Type Description Date Medical History genital herpes Medical History hypercholesterolemia Medical History kidney stones Medical History left knee torn meniscus (11/2019) Surgical History Left Kidney stone 12/2015 Surgical History left knee scope with medial menisectomy, chondroplasty 04/2020 Surgical History LIthotripsy- left Kidney 3 Surgical History Left Kidney Laser Surgery 01/13 23 Hospitalization History Left Kidney stone [facility] Other Evaluation noteNo assessment information available [facility] Work Phone: Evaluation note* Diagnosis Onset Date Resolution Status Sleep apnea acute [facility] Work Phone: Evaluation note* Diagnosis Onset Date Resolution Status Left flank pain noneactive [facility] Work Phone: Hospital Discharge instructions Additional Instructions Go directly to the urology office [address]unez and [place] it is the building behind the hospital in the same building with [facility] dialysis Try not to stop do not eat or drink on your way to the hospital [phone] is the office phone number if you have any problems getting to the [facility] Work Phone: Hospital Discharge instructions Additional Instructions DISCHARGE INSTRUCTIONS [...] strain his urine for 2 weeks. [ ][facility] Work Phone: Hospital Discharge instructionsAmbulatory Orders* Referral to Sleep Medicine Time Frame: 02/04/24, Location: None Selected [facility] Work Phone: Summary Purpose Family History No [...] section and content) DATE CREATED AUTHOR 10/10/2021 [facility] dical Specialist DATE CREATED AUTHOR AUTHOR'S ORGANIZ ATION 01/10/2023 [facility] DATE CREATED AUTHOR AUTHOR'S ORGANIZ ATION 07/25/2023 [facility] DATE CREATED AUTHOR AUTHOR'S ORGANIZ ATION 06/19/2024 [facility] REASON FOR VISIT (unrecogniz ed section and [...] Member Role Status Dates Noel Samayoa , Primary Care Provider Active Team Status: Inactive Member Role Status Dates Noel Samayoa , Primary Care Provider Active Carmen Cuello MD Emergency Provider Active Team Status: Inactive Member Role Status Dates Noel Samayoa , DO Primary Care Provider Active Regi Lowery [facility] Emergency Provider Active Team Status: Inactive Member Role Status Dates Noel Samayoa , Primary Care Provider Active Arslan Shane MD Attending Provider Active Team Status: Inactive Member Role Status Dates Noel Samayoa , Primary Care Provid er, Attending Provider Active Start: February 04, 2024 End: February 04, 2024 Team Status: Inactive Member Role Status Dates Noel Samayoa , Primary Care Provid er, Attending Provider Active [...] BE BASED ON THE PRIMARY CLINICAL RECORDS. [facility] [employer] [facility]. provides no warranty or guarantee of the accuracy or completeness of information in this document.
== END 2024-06-20 11:36 | disposition home or self-care (01) ==
LOC: PST 11:35
PROVIDERS: PCP Family Medicine; Visit Provider Urology
DX: Z01.818 Encounter for other preprocedural examination (principal); N20.0 Calculus of kidney; R31.9 Hematuria, unspecified

== ENCOUNTER 2024-06-30 07:17 | Day surgery (SDC) | payer BC, SELFPAY ==
--- OUTSIDE RECORDS SUMMARY | 2024-06-30 07:39 | XMS_ITS | CCD ---
Author Organization [facility] Care Team Providers Care Seismograph Computer Name Role Phone Anjel Rizzo Unavailable DO Noel Samayoa. Primary Care Provider MD Carmen Cuello Emergency Provider [phone] [facility] Regi Schumacher Emergency Provider DANITA, DR [...] Care Provider MD Arslan Shane Attending Provider [phone] Noel Samayoa Unavailable Noel Samayoa. Primary Care Unavailable Arslan Shane Attending Unavailable Arslan Shane Admitting Unavailable Arslan Shane Attending Unavailable Arslan Shane Admitting Unavailable Noel Samayoa. Primary Care Unavailable Arslan Shnae Attending Unavailable Arslan Shane Admitting Unavailable Noel [...] Medication Allergies] Propensity to adverse reactions (disorder) [facility] Repository Medications Current Medications Medication Drug Class(es) [...] Arslan SHANE MD Where: [facility] [place] [address] [place] [address]- You Need to Schedule the Following Appointments Follow Up with Arslan SHANE MD, OG When: Where: [facility] [address] , [place] [address]- Medications What How Much When Instructions Unchanged [...] these instructions at home: Medicines ? Take upes-xfo-mohbcbf and prescription medicines only as told by [...] keep your pee pale yellow. ? Take xfle-sgl-dghzjsb or prescription medicines. ? Eat foods that [...] that g (more content not included)... Normal [facility] Provider Letteron 06-11-2024 Provider Letter Provider Letter June 11, 2024 CARMEN [place] [address] [place] [address] : 1960 To Whom It May Concern, Please excuse above patient from work. Date of Illness: From: 06/11/2024 To: 06/14/2024 May Return to Work On:06/16/2024 Restrictions: none Comments: Patient is having surgery 06/12/[address] Shane. Sincerely, [facility] , Option #3 Normal [facility] Urology Office/Clinic Noteon 06-11-2024 Urology Office/Clinic Note Urology Office/Clinic Note Chief Complaint office visit HPI Staff Office visit. Pt is here to review KUB 06/02/24[place] [place]: kidney stone and BPH with obstruction/LUTS. [...] stone. S/p L ESWL 06/26/23. KUB 06/02/24 [facility] - ~8 mm stone L renal pelvis. [...] of urinary calculi) Hx of PCNL at [facility] due to 0.75 stone. Follow-up With When Contact Information MIGUE MCKEON, Arslan [place], URL [facility] [address], [place] [address]- Additional Instructions: schedule L URS, L Laser [...] No q (more content not included)... Normal [facility] Comment on above: Result Comment: Elec tronically Signed By: Arslan SHANE MD\.br\Date and Time Signed: 06/11/24 11:26 EDT\.br\Electronically [...] mGy = na DAP = na Normal [facility] Provider Letteron 11-20-2023 Provider Letter (Inserted Image. Sweta ble to display) November 20, 2023 CARMEN JARAMILLO [address] [place] [address] : 1960 Dear Carmen Jaramillo , We have been trying to reach you with no success. It is important that you return our call regarding your recent imaging results upon receiving this letter. Also, at the time of your call, please provide us with your current information. Thank you for your prompt attention to this matter. Sincerely, [facility] [address] [place] [address] Normal [facility] [id number] Normal [facility] [id number]#1.00TIFF Normal [facility] [id number]#[id number] Normal [facility] Ambulatory Visit Summaryon 0 10-29-2023 Ambulatory Visit [...] Arslan SHANE MD Where: [facility] Patient Educationon 10-29-19 24 Patient Education [...] Follow these instructions at home: ? Take ljyx-dgg-ikmwsny and prescription medicines only as told by [...] the medicine (more content not included)... Normal [facility] Urology Office/Clinic Noteon 10-29-2023 Urology Office/Clinic Note [...] Urology [address], [place] [address] [phone] Additional Instructions: Patient Education Benign Prostatic Hyperplasia Kidney Stones, Wnxo-yc-Faxf Tata Zamorano, personally scribed for Dr. Shane [...] Recorded influenza (more content not included)... Normal [facility] Comment on above: Result Comment: Elec tronically Signed By: MIGUE MCKEON, Arslan Dumont.tameka\Date and Time Signed: 10/29/23 10:05 EST RAD - MISCon 07-06-2023 RAD - MISC [id number]#[id number] [facility] Operative Reporton Operative Report [id number]#[id number] [facility] XR KUBon 06-26-[address] [facility] [place] [address] XRay Report Signed Patient: aCrmen Jaramillo MR#: [id number] : 1960 Acct:[id number] Age/Sex: 62 / M ADM Date: 06/26/23 Loc: [place] Room: Type: [facility] Attending Dr: Arslan Shane MD Copies to: [...] Villa Jr., D.O.06/26/2023 9:41 AM Dictation Location: [place] [address] Transcribed By: [facility] 06/26/23940 Dictated By: Hood Villa Jr, DO 06/26/23939 Signed By: 06/26/23940 Normal [facility] Activated partial thrombopla stin time (aPTT) in platelet poor plasma by coagulation aOrdered By: Arslan Shane on 06-18-2023 aPTT Coag (PPP) [Time] 27.2 s 25.1-36.5 [facility] Comment on above: A hematocrit value g reater than 55% may lead to inaccurate results in coagulation testing. Patients having hematocrit values >55% require a special collection tube for coagulation studies. Please contact the laboratory at [phone] for redraw instructions. Basic Metabolic Panelon 05-28 Anion gap [Moles/Vol] 7.2 mmol/L Normal 6.0-15.[address] [facility] Comment on above: Performed By: #### C UU, ADDONUAPLUS #### [facility] [address] [place] [address] [place] Calcium [Mass/Vol] 8.8 mg/dL Normal 8.6-10.3 [facility] Comment on above: Result Comment: PERF ORMED BY: [place] [address] PATHOLOGIST CAMERA REPAIRER JOS MOYA M.D. Performed By: #### C UU, ADDONUAPLUS #### [facility] [address] [place] [id number] [place] Chloride [Moles/Vol] 107 mmol/L Normal 98-107 [facility] Comment on above: Performed By: #### C UU, ADDONUAPLUS #### [facility] [address] [place] [id number] [place] CO2 [Moles/Vol] 29.9 mmol/L Normal 21.0-31.0 [facility] Comment on above: Performed By: #### C UU, ADDONUAPLUS #### [facility] [address] Creatinine [Mass/Vol] 1.02 mg/dL Normal 0.70-1.[address] [facility] Comment on above: Performed By: #### C UU, ADDONUAPLUS #### [facility] [address] [place] [address] [place] GFR/1.73 sq M.predicted MDRD (S/P/Bld) [Vol rate/Area] mL/min/{1.73_m2} Normal [facility] Comment on above: Performed By: #### C UU, ADDONUAPLUS #### [address] Glucose [Mass/Vol] 99 mg/dL Normal 70-100 [facility] Comment on above: Result Comment: [place] Glucose Reference Range is dependent on time and content of last meal. Glucose of more than 200 mg/dL in a nonstressed, ambulatory subject supports the diagnosis of Diabetes Mellitus. ADA recommended reference range Performed By: #### C UU, ADDONUAPLUS #### [address] Potassium [Moles/Vol] 4.1 mmol/L Normal 3.5-5.[address] [facility] Comment on above: Performed By: #### C UU, ADDONUAPLUS #### [place] [address] [place] Sodium [Moles/Vol] 140 mmol/L Normal 136-145 [facility] Comment on above: Performed By: #### C UU, ADDONUAPLUS #### [place] [address] [place] Urea nitrogen [Mass/Vol] 23 mg/dL Normal 7-25 [facility] Comment on above: Performed By: #### C UU, ADDONUAPLUS #### [place] [address] [place] Basophils Auto (Bld) [#/Vol] Ordered By: Arslan Shane on 06-18-2023 Basophils (Bld) [#/Vol] 0.0 10*3/uL 0.0-0.2 [facility] Basophils/100 WBC Auto (Bld) Ordered By: Arslan Shane on 06-18-2023 Basophils/100 WBC (Bld) 0.4 % . [facility] Calcium [Mass/volume] in Ser um or PlasmaOrdered By: Arslan Shane on 06-18-2023 Calcium [Mass/Vol] 8.8 mg/dL 8.6-10.3 [facility] Carbon dioxide, total [Moles /volume] in Serum or PlasmaOrdered By: Arslan Shane on 06-18-2023 CO2 [Moles/Vol] 29.9 mmol/L 21.0-31.0 [facility] Chloride [Moles/volume] in S renny or PlasmaOrdered By: Arslan Shane on 06-18-2023 Chloride [Moles/Vol] 107 mmol/L 98-107 [facility] Complete Blood Count Auto Di ffon 06-18-2023 Basophils (Bld) [#/Vol] 0.0 10*3/uL Normal 0.0-0.2 [facility] Comment on above: Result Comment: PERF ORMED BY: [place] [address] PATHOLOGIST CAMERA REPAIRER JOS MOYA M.D. Performed By: #### B MP, PT, PTT, CBC #### [facility] [address] [place] [address] Basophils/100 WBC (Bld) 0.4 % Normal . [facility] Comment on above: Performed By: #### B MP, PT, PTT, CBC #### [facility] [address] [place] [address] [place] Eosinophils (Bld) [#/Vol] 0.1 10*3/uL Normal 0.0-0.45 [facility] Comment on above: Performed By: #### B MP, PT, PTT, CBC #### [facility] [address] Eosinophils/100 WBC (Bld) 2.3 % Normal . [facility] Comment on above: Performed By: #### B MP, PT, PTT, CBC #### [address] Erythrocyte distribution width (RBC) [Ratio] 13.5 % Normal 12.0-14.8 [facility] Comment on above: Performed By: #### B MP, PT, PTT, CBC #### [address] Hematocrit (Bld) [Volume fraction] 38.3 % Low 38.8-50.0 [facility] Comment on above: Performed By: #### B MP, PT, PTT, CBC #### [address] Hemoglobin (Bld) [Mass/Vol] 13.1 g/dL Normal 13.0-17.0 [facility] Comment on above: Performed By: #### B MP, PT, PTT, CBC #### [address] Lymphocytes (Bld) [#/Vol] 1.1 10*3/uL Normal 1.00-4.8 [facility] Comment on above: Performed By: #### B MP, PT, PTT, CBC #### [address] Lymphocytes/100 WBC (Bld) 23.7 % Normal . [facility] Comment on above: Performed By: #### B MP, PT, PTT, CBC #### [address] MCH (RBC) [Entitic mass] 30.0 pg Normal 27.5-35.2 [facility] Comment on above: Performed By: #### B MP, PT, PTT, CBC #### [address] MCV (RBC) [Entitic vol] 87.9 fL Normal 83.5-101 [facility] Comment on above: Performed By: #### B MP, PT, PTT, CBC #### [address] Mean Corpuscular HGB Conc 34.1 g/dL Normal 32.5-35.6 [facility] Comment on above: Performed By: #### B MP, PT, PTT, CBC #### [address] Monocytes (Bld) [#/Vol] 0.3 10*3/uL Normal 0.0-0.8 [facility] Comment on above: Performed By: #### B MP, PT, PTT, CBC #### [address] Monocytes/100 WBC (Bld) 7.1 % Normal . [facility] Comment on above: Performed By: #### B MP, PT, PTT, CBC #### [address] Neutrophils (Bld) [#/Vol] 3.2 10*3/uL Normal 1.8-7.7 [facility] Comment on above: Performed By: #### B MP, PT, PTT, CBC #### [address] Neutrophils/100 WBC (Bld) 66.5 % Normal . [facility] Comment on above: Performed By: #### B MP, PT, PTT, CBC #### [address] NRBC% 0.0 /100{WBC} Normal 0-0.5 [facility] Comment on above: Performed By: #### B MP, PT, PTT, CBC #### [address] Platelet mean volume (Bld) [Entitic vol] 7.0 fL Normal 6.6-10.1 [facility] Comment on above: Performed By: #### B MP, PT, PTT, CBC #### [address] Platelets (Bld) [#/Vol] 149 10*3/uL Low 150-450 [facility] Comment on above: Performed By: #### B MP, PT, PTT, CBC #### [address] [place] [address] [place] RBC (Bld) [#/Vol] 4.36 10*6/uL Normal 3.90-5.60 [facility] Comment on above: Performed By: #### B MP, PT, PTT, CBC #### [facility] [address] WBC (Bld) [#/Vol] 4.8 10*3/uL Normal 4.1-10.5 [facility] Comment on above: Performed By: #### B MP, PT, PTT, CBC #### [facility] [address] Creatinine [Mass/volume] in Serum or PlasmaOrdered By: Arslan Shane on 06-18-2023 Creatinine [Mass/Vol] 1.02 mg/dL 0.70-1.[address] [facility] ECG 12 lead ECGon 06-18-[address]23 [address] [facility] [place] [address] [place] [address] Electrocardiograph Report Signed Patient: Carmen Jaramillo MR#: [id number] : 1960 Acct:[id number] Age/Sex: 62 / M ADM Date: 06/18/23 Loc: Room: Type: [facility] Attending Dr: Arslan Shane MD Ordering Provider: [...] By Sandy Cortez DO 06/18 1728 Normal [facility] Eosinophils Auto (Bld) [#/Vo l]Ordered By: Arslan Shane on 06-18-2023 Eosinophils (Bld) [#/Vol] 0.1 10*3/uL 0.0-0.45 [facility] Eosinophils/100 WBC Auto (Bl d)Ordered By: Arslan Shane on 06-18-2023 Eosinophils/100 WBC (Bld) 2.3 % . [facility] Erythrocyte distribution wid th Auto (RBC) [Ratio]Ordered By: Arslan Shane on 06-18-2023 Erythrocyte distribution width (RBC) [Ratio] 13.5 % 12.0-14.8 [facility] Glucose [Mass/volume] in Ser um or PlasmaOrdered By: Arslan Shane on 06-18-2023 Glucose [Mass/Vol] 99 mg/dL 70-100 [facility] Comment on above: ADA recommended refe rence rangeRandom Glucose Reference Range is dependent on time and content of last meal. Glucose of more than 200 mg/dL in a nonstressed, ambulatory subject supports the diagnosis of Diabetes Mellitus. Hematocrit Auto (Bld) [Volum e fraction]Ordered By: Arslan Shane on 06-18-2023 Hematocrit (Bld) [Volume fraction] 38.3 % 38.8-50.0 [facility] Hemoglobin [Mass/volume] in BloodOrdered By: Arslan Shane on 06-18-2023 Hemoglobin (Bld) [Mass/Vol] 13.1 g/dL 13.0-17.0 [facility] INR in Platelet poor plasma by Coagulation assayOrdered By: Arslan Shane on 06-18-2023 INR Coag (PPP) [Relative time] 1.0 {INR} [facility] Comment on above: INR Therapeutic Rang [...] RBC Auto (Bld) [#/Vol] 4.8 10*3/uL 4.1-10.5 [facility] Lymphocytes Auto (Bld) [#/Vo l]Ordered By: Arslan Shane on 06-18-2023 Lymphocytes (Bld) [#/Vol] 1.1 10*3/uL 1.00-4.8 [facility] Lymphocytes/100 WBC Auto (Bl d)Ordered By: Arslan Shane on 06-18-2023 Lymphocytes/100 WBC (Bld) 23.7 % . [facility] MCH Auto (RBC) [Entitic mass ]Ordered By: Arslan Shane on 06-18-2023 MCH (RBC) [Entitic mass] 30.0 pg 27.5-35.2 [facility] MCHC Auto (RBC) [Mass/Vol]Or dered By: Arslan Shane on 06-18-2023 MCHC (RBC) [Mass/Vol] 34.1 g/dL 32.5-35.[address] [facility] MCV Auto (RBC) [Entitic vol] Ordered By: Arslan Shane on 06-18-2023 MCV (RBC) [Entitic vol] 87.9 fL 83.5-101 [facility] Monocytes Auto (Bld) [#/Vol] Ordered By: Arslan Shane on 06-18-2023 Monocytes (Bld) [#/Vol] 0.3 10*3/uL 0.0-0.8 [facility] Monocytes/100 WBC Auto (Bld) Ordered By: Arslan Shane on 06-18-2023 Monocytes/100 WBC (Bld) 7.1 % . [facility] Neutrophils Auto (Bld) [#/Vo l]Ordered By: Arslan Shane on 06-18-2023 Neutrophils (Bld) [#/Vol] 3.2 10*3/uL 1.8-7.7 [facility] Neutrophils/100 WBC Auto (Bl d)Ordered By: Arslan Shane on 06-18-2023 Neutrophils/100 WBC (Bld) 66.5 % . [facility] No Panel InformationOrdered By: Arslan Shane on 06-18-2023 Estimated GFR (CKD-EPI) > 60.0 mL/Min [facility] Creatinine Clearance (Chem N/A [facility] Nucleated erythrocytes [Pres ence] in Blood by Automated countOrdered By: Arslan Shane on 06-18-2023 Nucleated RBC Auto Ql (Bld) 0.0 /100{WBC} 0-0.5 [facility] Partial Thromboplastin Timeo n 06-18-2023 aPTT Coag (Bld) [Time] 27.2 s Normal 25.1-36.5 [facility] Comment on above: Result Comment: A he matocrit value greater than 55% may lead to inaccurate results in coagulation testing. Patients having hematocrit values >55% require a special collection tube for coagulation studies. Please contact the laboratory at [phone] for redraw instructions. PERFORMED BY: [place] [address] PATHOLOGIST CAMERA REPAIRER JOS MOYA M.D. Performed By: #### C NANETTE HENRY #### [address] Platelet mean volume Auto (B ld) [Entitic vol]Ordered By: Arslan Shane on 06-18-2023 Platelet mean volume (Bld) [Entitic vol] 7.0 fL 6.6-10.1 [facility] Platelets Auto (Bld) [#/Vol] Ordered By: Arslan Shane on 06-18-2023 Platelets (Bld) [#/Vol] 149 10*3/uL 150-450 [facility] Potassium [Moles/volume] in Serum or PlasmaOrdered By: Arslan Shane on 06-18-2023 Potassium [Moles/Vol] 4.1 mmol/L 3.5-5.[address] [facility] Prothrombin Time INRon 06-18 INR Coag (PPP) [Relative time] 1.0 {INR} Normal [facility] Comment on above: Result Comment: INR [...] Performed By: #### C JUNIOR HENRYPLUS #### [facility] [address] [place] [id number] [facility] PT Coag (PPP) [Time] 12.4 s Normal 9.0-12.9 [facility] Comment on above: Result Comment: A he matocrit value greater than 55% may lead to inaccurate results in coagulation testing. Patients having hematocrit values >55% require a special collection tube for coagulation studies. Please contact the laboratory at [phone] for redraw instructions. Performed By: #### C JNUIOR HENRYPLUS #### [facility] [address] [place] [id number] [facility] Prothrombin time (PT)Ordered By: Arslan Shane on 06-18-2023 PT Coag (PPP) [Time] 12.4 s 9.0-12.9 [facility] Comment on above: A hematocrit value g reater than 55% may lead to inaccurate results in coagulation testing. Patients having hematocrit values >55% require a special collection tube for coagulation studies. Please contact the laboratory at [phone] for redraw instructions. RBC Auto (Bld) [#/Vol]Ordere d By: Arslan Shane on 06-18-2023 RBC (Bld) [#/Vol] 4.36 10*6/uL 3.90-5.60 [facility] Serum or plasma anion gap de terminationOrdered By: Arslan Shane on 06-18-2023 Anion gap [Moles/Vol] 7.2 mmol/L 6.0-15.[address] [facility] Sodium [Moles/volume] in Ser um or PlasmaOrdered By: Arslan Shane on 06-18-2023 Sodium [Moles/Vol] 140 mmol/L 136-145 [facility] Urea nitrogen [Mass/volume] in Serum or PlasmaOrdered By: Arslan Shane on 06-18-2023 Urea nitrogen [Mass/Vol] 23 mg/dL 7-25 [facility] WBC Auto (Bld) [#/Vol]Ordere d By: Arslan Shane on 06-18-2023 WBC (Bld) [#/Vol] 4.8 10*3/uL 4.1-10.5 [facility] 24 Hr Urine Uric Acidon 02-26 Uric Acid, 24 Hr Urine 675.0 Normal 182.4-936. 8 [facility] Comment on above: Order Comment: URINE VOLUME (MILLILTERS): 1350 Result Comment: Perf ormed at: - [facility] [address] [id number] Team Leader: Sunil Merino PhD, Phone: [phone] Performed By: #### C ITRIC UR, PHOS 24HRU, OXAL 24HRU, URIC 24HRU, U24 CA, MAG 24HRU ####[facility] ,#### U24 NA, CREA24, COL T V ####[place] [address] [address] Urine Uric Acid 50.0 mg/dL Normal Not Estab. [facility] Comment on above: Order Comment: URINE VOLUME (MILLILTERS): 1350 Performed By: #### C ITRIC UR, PHOS 24HRU, OXAL 24HRU, URIC 24HRU, U24 CA, MAG 24HRU ####[facility] ,#### U24 NA, CREA24, COL T V ####[address] 24 hour urine sodium measure ment (moles/time)Ordered By: Arslan Shane on 03-26-2023 Sodium (24H U) [Moles/Time] 119 mmol/24 40-220 [facility] 24 hour urine uric acid jaciel urement (mass/time)Ordered By: Arslan Shane on 03-26-2023 Urate (24H U) [Mass/Time] 675.0 mg/24 hr 182.4-936. 8 [facility] Comment on above: Performed at: - [facility] [address] [id number] Director: Sunil Merino PhD, Phone: [phone] Blood Urea Nitrogenon 2022 Urea nitrogen [Mass/Vol] 17 mg/dL Normal 7-25 [facility] Comment on above: Performed By: #### C UU, OSMANYONUAPLUS #### [facility] [address] biopsyOrdered By: Arslan Shane on 03-26-2023 CT biopsy 24 Hours [facility] Calciumon 03-26-2023 Calcium [Mass/Vol] 8.9 mg/dL Normal 8.6-10.3 [facility] Comment on above: Performed By: #### C UU, ADDONUAPLUS #### [facility] [address] Calcium [Mass/time] in 24 ho ur UrineOrdered By: Arslan Shane on 03-26-2023 Calcium (24H U) [Mass/Time] 259 mg/24 hr 0-320 [facility] Calcium [Mass/volume] in 24 hour UrineOrdered By: Arslan Shane on 03-26-2023 Calcium (24H U) [Mass/Vol] 19.2 mg/dL Not Estab. [facility] Calcium [Mass/volume] in Ser um or PlasmaOrdered By: Arslan Shane on 03-26-2023 Calcium [Mass/Vol] 8.9 mg/dL 8.6-10.3 [facility] Calcium, 24Hr Urineon 2022 Calcium, Urine 19.2 mg/dL Normal Not Estab. [facility] Comment on above: Order Comment: URINE VOLUME (MILLILTERS): 1350 Performed By: #### C ITRIC UR, PHOS 24HRU, OXAL 24HRU, URIC 24HRU, U24 CA, MAG 24HRU ####[facility] ,#### U24 NA, CREA24, COL T V ####[facility] [address] [place] [id number] [place] Calcium, Urine 24 Hr 259 Normal 0-320 [facility] Comment on above: Order Comment: URINE VOLUME (MILLILTERS): 1350 Performed By: #### C ITRIC UR, PHOS 24HRU, OXAL 24HRU, URIC 24HRU, U24 CA, MAG 24HRU ####[facility] ,#### U24 NA, CREA24, COL T V ####[place] [address] [place] [id number] [facility] Carbon dioxide, total [Moles /volume] in Serum or PlasmaOrdered By: Arslan Shane on 03-26-2023 CO2 [Moles/Vol] 31.0 mmol/L 21.0-31.0 [facility] Chloride [Moles/volume] in S renny or PlasmaOrdered By: Arslan Shane on 03-26-2023 Chloride [Moles/Vol] 104 mmol/L 98-107 [facility] Citric Acid, Urine, 24 Houro n 03-26-2023 Citric Acid, Urine 290 mg/L Normal Undefined [facility] Comment on above: Order Comment: URINE VOLUME (MILLILTERS): 1350 Performed By: #### C ITRIC UR, PHOS 24HRU, OXAL 24HRU, URIC 24HRU, U24 CA, MAG 24HRU ####[facility] ,#### U24 NA, CREA24, COL T V ####[place] [id number] [facility] Citric Acid, Urine, 24HR 392 Normal 320-1240 [facility] Comment on above: Order Comment: URINE VOLUME (MILLILTERS): 1350 Result Comment: This test was developed and its performance characteristics determined by [facility]. It has not been cleared or approved by the Food and Drug Administration. Performed at: [address] [id number] Team Leader: Akilah Mcfarlane MD, Phone: [phone] PERFORMED BY: [facility] [address] [place] [address] PATHOLOGIST CAMERA REPAIRER JOS MOYA M.D. Performed By: #### C ITRIC UR, PHOS 24HRU, OXAL 24HRU, URIC 24HRU, U24 CA, MAG 24HRU ####[facility] ,#### U24 NA, CREA24, COL T V ####[place] [address] [address] Erma Time and Vol 24 hr uron 03-26-2023 Total Volume, Urine 1350 Normal [facility] Comment on above: Order Comment: URINE COLLECTION TIME (HRS): 24 URINE VOLUME (MILLILTERS): 1350 Result Comment: PERF ORMED BY: [address] [place] [address] PATHOLOGIST CAMERA REPAIRER JOS MOYA M.D. Performed By: #### C ITRIC UR, PHOS 24HRU, OXAL 24HRU, URIC 24HRU, U24 CA, MAG 24HRU ####[facility] ,#### U24 NA, CREA24, COL T V ####[address] Urine Collection Time [address] [facility] Comment on above: Order Comment: URINE COLLECTION TIME (HRS): 24 URINE VOLUME (MILLILTERS): 1350 Performed By: #### C ITRIC UR, PHOS 24HRU, OXAL 24HRU, URIC 24HRU, U24 CA, MAG 24HRU ####[facility] ,#### U24 NA, CREA24, COL T V ####[address] Creatinineon 03-26-2023 Creatinine [Mass/Vol] 0.93 mg/dL Normal 0.70-1.[address] [facility] Comment on above: Performed By: #### C UU, ADDONUAPLUS #### [facility] [address] [place] [address] [place] GFR/1.73 sq M.predicted MDRD (S/P/Bld) [Vol rate/Area] mL/min/{1.73_m2} Normal [facility] Comment on above: Performed By: #### C UU, ADDONUAPLUS #### [facility] [address] [place] [address] [place] Creatinine [Mass/volume] in Serum or PlasmaOrdered By: Arslan Shane on 03-26-2023 Creatinine [Mass/Vol] 0.93 mg/dL 0.70-1.[address] [facility] Creatinine [Mass/volume] in UrineOrdered By: Arslan Shane on 03-26-2023 Creatinine (U) [Mass/Vol] 129.00 mg/dL 14.00-26.0 0 [facility] Creatinine, 24 Hr Urineon Creatinine 24 Hour, Urine 1.74 g/24_hr Normal 1.00-2.09 [facility] Comment on above: Order Comment: URINE COLLECTION TIME (HRS): 24 URINE VOLUME (MILLILTERS): 1350 Performed By: #### C UU, ADDONUAPLUS #### [address] Creatinine, Urine 129.00 mg/dL High 14.00-26.0 0 [facility] Comment on above: Order Comment: URINE COLLECTION TIME (HRS): 24 URINE VOLUME (MILLILTERS): 1350 Performed By: #### C UU, ADDONUAPLUS #### [facility] [address] [place] [address] [place] Electrolyteson 03-26-2023 Anion gap [Moles/Vol] 8.0 mmol/L Normal 6.0-15.[address] [facility] Comment on above: Performed By: #### C UU, ADDONUAPLUS #### [address] Chloride [Moles/Vol] 104 mmol/L Normal 98-107 [facility] Comment on above: Performed By: #### C UU, ADDONUAPLUS #### [facility] [address] [place] [address] [place] CO2 [Moles/Vol] 31.0 mmol/L Normal 21.0-31.0 [facility] Comment on above: Performed By: #### C UU, ADDONUAPLUS #### [facility] [address] [place] [address] Potassium [Moles/Vol] 4.0 mmol/L Normal 3.5-5.[address] [facility] Comment on above: Performed By: #### C UU, ADDONUAPLUS #### [address] [place] [address] [place] Sodium [Moles/Vol] 139 mmol/L Normal 136-145 [facility] Comment on above: Performed By: #### C UU, ADDONUAPLUS #### [facility] [address] Magnesium [Mass/time] in 24 hour UrineOrdered By: Arslan Shane on 03-26-2023 Magnesium (24H U) [Mass/Time] 155.3 mg/24 hr 12.0-293.0 [facility] Magnesium [Mass/volume] in U rineOrdered By: Arslan Shane on 03-26-2023 Magnesium (U) [Mass/Vol] 11.5 mg/dL Not Estab. [facility] Magnesium, Urine 24Hron 02-26 Magnesium, 24Hr Urine 155.3 Normal 12.0-293.[address] [facility] Comment on above: Order Comment: URINE VOLUME (MILLILTERS): 1350 Performed By: #### C ITRIC UR, PHOS 24HRU, OXAL 24HRU, URIC 24HRU, U24 CA, MAG 24HRU ####[facility] ,#### U24 NA, CREA24, COL T V ####[facility] [id number] Magnesium, Urine 11.5 mg/dL Normal Not Estab. [facility] Comment on above: Order Comment: URINE VOLUME (MILLILTERS): 1350 Performed By: #### C ITRIC UR, PHOS 24HRU, OXAL 24HRU, URIC 24HRU, U24 CA, MAG 24HRU ####[facility] ,#### U24 NA, CREA24, COL T V ####[facility] [id number] No Panel InformationOrdered By: Arslan Shane on 03-26-2023 Estimated GFR (CKD-EPI) > 60.0 mL/Min [facility] Creatinine Clearance (Chem N/A [facility] Urine Citric Acid 290 mg/L Undefined [facility] Urine Citric Acid 24 Hour 392 mg/24 hr 320-1240 [facility] Comment on above: This test was develo ped and its performance characteristicsdetermined by [employer]. It has not been cleared orapproved by the Food and Drug Administration.Performed at: [address] [id number] Director: Akilah Mcfarlane MD, Phone: [phone] Urine Creatinine 24 Hour 1.74 g/24 hr 1.00-2.09 [facility] Oxalate [Mass/time] in 24 ho ur UrineOrdered By: Arslan Shane on 03-26-2023 Oxalate (24H U) [Mass/Time] 70 mg/24 hr [facility] Comment on above: Performed at: [address] [id number] Director: Akilah Mcfarlane MD, Phone: [phone] Oxalate [Mass/volume] in Uri neOrdered By: Arslan Shane on 03-26-2023 Oxalate (U) [Mass/Vol] 52 mg/L [facility] Oxalate, Quant, 24Hr Urineon 03-26-2023 Oxalates, Urine 52 mg/L Normal [facility] Comment on above: Order Comment: URINE VOLUME (MILLILTERS): 1350 Performed By: #### C ITRIC UR, PHOS 24HRU, OXAL 24HRU, URIC 24HRU, U24 CA, MAG 24HRU ####[facility] ,#### U24 NA, CREA24, COL T V ####[facility] [id number] [place] [address] [facility] Oxalates, Urine 24Hr [address] [place] [address] Comment on above: Order Comment: URINE VOLUME (MILLILTERS): 1350 Result Comment: Perf ormed at: [address] [id number] Team Leader: Akilah Mcfarlane MD, Phone: [phone] Performed By: #### C ITRIC UR, PHOS 24HRU, OXAL 24HRU, URIC 24HRU, U24 CA, MAG 24HRU ####[facility] ,#### U24 NA, CREA24, COL T V ####[facility] [id number] [place] [id number] [facility] Parathyrin.intact [Mass/volu me] in Serum or PlasmaOrdered By: Arslan Shane on 03-26-2023 Parathyrin.intact [Mass/Vol] 48.1 pg/mL [facility] Parathyroid Hormone Intacton 03-26-2023 Parathyroid Hormone Intact 48.1 pg/mL Normal [facility] Comment on above: Result Comment: PERF ORMED BY: [facility] [address] [place] [address] PATHOLOGIST [employer] REPA[employer] JOS MOYA M.D. Performed By: #### C UU, ADDONUAPLUS #### [facility] [address] [place] [address] [place] Phosphate [Mass/time] in 24 hour UrineOrdered By: Arslan Shane on 03-26-2023 Phosphate (24H U) [Mass/Time] 1512 mg/24 hr 390-1425 [facility] Phosphate [Mass/volume] in U rineOrdered By: Arslan Shane on 03-26-2023 Phosphate (U) [Mass/Vol] 112.0 mg/dL Not Estab. [facility] Phosphorus, 24Hr Urineon Phosphorous, Urine 112.0 mg/dL Normal Not Estab. [facility] Comment on above: Order Comment: URINE VOLUME (MILLILTERS): 1350 Performed By: #### C ITRIC UR, PHOS 24HRU, OXAL 24HRU, URIC 24HRU, U24 CA, MAG 24HRU ####[facility] ,#### U24 NA, CREA24, COL T V ####[facility] [id number] [place] [id number] [place] Phosphorus, Urine 24Hr 1512 High 390-1425 [facility] Comment on above: Order Comment: URINE VOLUME (MILLILTERS): 1350 Performed By: #### C ITRIC UR, PHOS 24HRU, OXAL 24HRU, URIC 24HRU, U24 CA, MAG 24HRU ####[facility] ,#### U24 NA, CREA24, COL T V ####[place] [id number] [place] [id number] [facility] Potassium [Moles/volume] in Serum or PlasmaOrdered By: Arslan Shane on 03-26-2023 Potassium [Moles/Vol] 4.0 mmol/L 3.5-5.[address] [facility] Serum or plasma anion gap de terminationOrdered By: Arslan Shane on 03-26-2023 Anion gap [Moles/Vol] 8.0 mmol/L 6.0-15.[address] [facility] Sodium [Moles/volume] in Ser um or PlasmaOrdered By: Arslan Shane on 03-26-2023 Sodium [Moles/Vol] 139 mmol/L 136-145 [facility] Sodium [Moles/volume] in Uri neOrdered By: Arslan Shane on 03-26-2023 Sodium (U) [Moles/Vol] 88.0 mmol/L Normal [facility] Comment on above: No reference range e stablished Order Comment: URINE COLLECTION TIME (HRS): 24 URINE VOLUME (MILLILTERS): 1350 Result Comment: No r eference range established Performed By: #### C ITRIC UR, PHOS 24HRU, OXAL 24HRU, URIC 24HRU, U24 CA, MAG 24HRU ####[facility] ,#### U24 NA, CREA24, COL T V ####[place] [id number] [place] [id number] [place] Sodium, 24 Hr Urineon 2022 Sodium 24 Hour Urine 119 Normal 40-220 [facility] Comment on above: Order Comment: URINE COLLECTION TIME (HRS): 24 URINE VOLUME (MILLILTERS): 1350 Performed By: #### C ITRIC UR, PHOS 24HRU, OXAL 24HRU, URIC 24HRU, U24 CA, MAG 24HRU ####[facility] ,#### U24 NA, CREA24, COL T V ####[place] [id number] [place] [id number] [place] Urate [Mass/volume] in Serum or PlasmaOrdered By: Arslan Shane on 03-26-2023 Urate [Mass/Vol] 6.5 mg/dL 4.4-7.6 [facility] Urea nitrogen [Mass/volume] in Serum or PlasmaOrdered By: Arslan Shane on 03-26-2023 Urea nitrogen [Mass/Vol] 17 mg/dL 7-25 [facility] Uric Acidon 03-26-2023 Urate [Mass/Vol] 6.5 mg/dL Normal 4.4-7.6 [facility] Comment on above: Result Comment: PERF ORMED BY: [place] [address] PATHOLOGIST [employer] REPAIR[employer] JOS MOYA M.D. Performed By: #### C UU, ADDONUAPLUS #### [address] Urine uric acid measurement (mass/volume)Ordered By: Arslan Shane on 03-26-2023 Urate (U) [Mass/Vol] 50.0 mg/dL Not Estab. [facility] Urine volume measurementOrde red By: Arslan Shane on 03-26-2023 Specimen volume (U) 1350 ml [facility] Alanine aminotransferase [En zymatic activity/volume] in Serum or PlasmaOrdered By: Regi Bullimore on 01-08-2023 ALT [Catalytic activity/Vol] 16 U/L 7-52 [facility] Albumin [Mass/volume] in Ser um or Plasma by Bromocresol green (BCG) dye binding methoOrdered By: Regi Bullimore on 01-08-2023 Albumin BCG dye [Mass/Vol] 4.0 g/dL 3.5-5.7 [facility] Alkaline phosphatase [Enzyma tic activity/volume] in Serum or PlasmaOrdered By: Regi Bullimore on 01-08-2023 ALP [Catalytic activity/Vol] 54 U/L 34-104 [facility] Aspartate aminotransferase [ Enzymatic activity/volume] in Serum or PlasmaOrdered By: Regi Bullimore on 01-08-2023 AST [Catalytic activity/Vol] 13 U/L 13-39 [facility] Automated erythrocytes count in urine sediment (number/area)Ordered By: Regi Lowery on 01-08-2023 RBC Auto (Urine sed) [#/Area] Innumerable [HPF] 0-4 [facility] Automated leukocytes count i n urine sediment (number/area)Ordered By: Regi Crewsimore on 01-08-2023 WBC Auto (Urine sed) [#/Area] 20-49 [HPF] 0-4 [facility] Basophils Auto (Bld) [#/Vol] Ordered By: Regi Crewsimore on 01-08-2023 Basophils (Bld) [#/Vol] 0.0 10*3/uL 0.0-0.2 [facility] Basophils/100 WBC Auto (Bld) Ordered By: Regi Crewsimore on 01-08-2023 Basophils/100 WBC (Bld) 0.3 % . [facility] Bilirubin Test strip Ql (U)O rdered By: Regi Lowery on 01-08-2023 Bilirubin Ql (U) Negative Negative [facility] Bilirubin.total [Mass/volume ] in Serum or PlasmaOrdered By: Regi Lowery on 01-08-2023 Bilirubin [Mass/Vol] 0.7 mg/dL 0.3-1.0 [facility] Calcium [Mass/volume] in Ser um or PlasmaOrdered By: Regi Crewsimore on 01-08-2023 Calcium [Mass/Vol] 8.4 mg/dL 8.6-10.3 [facility] Carbon dioxide, total [Moles /volume] in Serum or PlasmaOrdered By: Regi Crewsimore on 01-08-2023 CO2 [Moles/Vol] 29.5 mmol/L 21.0-31.0 [facility] Chloride [Moles/volume] in S renny or PlasmaOrdered By: Regi Crewsimore on 01-08-2023 Chloride [Moles/Vol] 104 mmol/L 98-107 [facility] Color Auto (U)Ordered By: Sona Lowery on 01-08-2023 Color (U) Dark yellow Yellow [facility] Complete Blood Count Auto Di ffon 01-08-2023 Basophils (Bld) [#/Vol] 0.0 10*3/uL Normal 0.0-0.2 [facility] Comment on above: Result Comment: PERF ORMED BY: [place] [address] PATHOLOGIST [employer] REPAIRER JOS MOYA M.D. Performed By: #### C BC, CMP #### [place] [address] [place] Basophils/100 WBC (Bld) 0.3 % Normal . [facility] Comment on above: Performed By: #### C BC, CMP #### [place] [address] [place] Eosinophils (Bld) [#/Vol] 0.1 10*3/uL Normal 0.0-0.45 [facility] Comment on above: Performed By: #### C BC, CMP #### [place] [address] [place] Eosinophils/100 WBC (Bld) 2.4 % Normal . [facility] Comment on above: Performed By: #### C BC, CMP #### [address] Erythrocyte distribution width (RBC) [Ratio] 13.1 % Normal 12.0-14.8 [facility] Comment on above: Performed By: #### C BC, CMP #### [address] Hematocrit (Bld) [Volume fraction] 40.0 % Normal 38.8-50.0 [facility] Comment on above: Performed By: #### C BC, CMP #### [place] [address] [place] Hemoglobin (Bld) [Mass/Vol] 13.5 g/dL Normal 13.0-17.0 [facility] Comment on above: Performed By: #### C BC, CMP #### [place] [address] [place] Lymphocytes (Bld) [#/Vol] 1.0 10*3/uL Normal 1.00-4.8 [facility] Comment on above: Performed By: #### C BC, CMP #### [address] Lymphocytes/100 WBC (Bld) 19.0 % Normal . [facility] Comment on above: Performed By: #### C BC, CMP #### [facility] [address] MCH (RBC) [Entitic mass] 29.3 pg Normal 27.5-35.2 [facility] Comment on above: Performed By: #### C BC, CMP #### [address] MCV (RBC) [Entitic vol] 86.9 fL Normal 83.5-101 [facility] Comment on above: Performed By: #### C BC, CMP #### [address] Mean Corpuscular HGB Conc 33.7 g/dL Normal 32.5-35.6 [facility] Comment on above: Performed By: #### C BC, CMP #### [address] Monocytes (Bld) [#/Vol] 0.4 10*3/uL Normal 0.0-0.8 [facility] Comment on above: Performed By: #### C BC, CMP #### [address] Monocytes/100 WBC (Bld) 17.49 % Normal 0.00-20.00 [facility] Comment on above: Performed By: #### C BC, CMP #### [place] [address] [place] Monocytes/100 WBC (Bld) 6.9 % Normal . [facility] Comment on above: Performed By: #### C BC, CMP #### [address] Neutrophils (Bld) [#/Vol] 3.8 10*3/uL Normal 1.8-7.7 [facility] Comment on above: Performed By: #### C BC, CMP #### [facility] [address] Neutrophils/100 WBC (Bld) 71.4 % Normal . [facility] Comment on above: Performed By: #### C BC, CMP #### [facility] [address] NRBC% 0.1 /100{WBC} Normal 0-0.5 [facility] Comment on above: Performed By: #### C BC, CMP #### [facility] [address] Platelet mean volume (Bld) [Entitic vol] 7.4 fL Normal 6.6-10.1 [facility] Comment on above: Performed By: #### C BC, CMP #### [address] Platelets (Bld) [#/Vol] 149 10*3/uL Low 150-450 [facility] Comment on above: Performed By: #### C BC, CMP #### [address] RBC (Bld) [#/Vol] 4.60 10*6/uL Normal 3.90-5.60 [facility] Comment on above: Performed By: #### C BC, CMP #### [address] WBC (Bld) [#/Vol] 5.3 10*3/uL Normal 4.1-10.5 [facility] Comment on above: Performed By: #### C BC, CMP #### [address] Comprehensive Metabolic Pane tiff 01-08-2023 Albumin [Mass/Vol] 4.0 g/dL Normal 3.5-5.7 [facility] Comment on above: Performed By: #### C BC, CMP #### [address] Albumin/Globulin [Mass ratio] 1.7 {ratio} Normal [facility] Comment on above: Performed By: #### C BC, CMP #### [facility] [address] [place] [id number] [facility] ALP [Catalytic activity/Vol] 54 U/L Normal 34-104 [facility] Comment on above: Performed By: #### C BC, CMP #### [facility] [address] ALT [Catalytic activity/Vol] 16 U/L Normal 7-52 [facility] Comment on above: Performed By: #### C BC, CMP #### [facility] [address] Anion gap [Moles/Vol] 7.6 mmol/L Normal 6.0-15.[address] [facility] Comment on above: Performed By: #### C BC, CMP #### [address] AST [Catalytic activity/Vol] 13 U/L Normal 13-39 [facility] Comment on above: Performed By: #### C BC, CMP #### [address] Bilirubin [Mass/Vol] 0.7 mg/dL Normal 0.3-1.0 [facility] Comment on above: Performed By: #### C BC, CMP #### [address] Calcium [Mass/Vol] 8.4 mg/dL Low 8.6-10.3 [facility] Comment on above: Performed By: #### C BC, CMP #### [facility] [address] [place] [address] [place] Chloride [Moles/Vol] 104 mmol/L Normal 98-107 [facility] Comment on above: Performed By: #### C BC, CMP #### [address] CO2 [Moles/Vol] 29.5 mmol/L Normal 21.0-31.0 [facility] Comment on above: Performed By: #### C BC, CMP #### [facility] [address] [place] [address] [place] Creatinine [Mass/Vol] 0.91 mg/dL Normal 0.70-1.[address] [facility] Comment on above: Performed By: #### C BC, CMP #### [address] Creatinine Clr Calc Pharmacy 95.04 [facility] Comment on above: Result Comment: PERF ORMED BY: [place] [address] PATHOLOGIST [employer] REPAIRER JOS MOYA M.D. Performed By: #### C BC, CMP #### [address] GFR/1.73 sq M.predicted MDRD (S/P/Bld) [Vol rate/Area] mL/min/{1.73_m2} [facility] Comment on above: Performed By: #### C BC, CMP #### [address] Globulin (S) [Mass/Vol] 2.4 g/dL [facility] Comment on above: Performed By: #### C BC, CMP #### [address] Glucose [Mass/Vol] 100 mg/dL Normal 70-100 [facility] Comment on above: Result Comment: [place] Glucose Reference Range is dependent on time and content of last meal. Glucose of more than 200 mg/dL in a nonstressed, ambulatory subject supports the diagnosis of Diabetes Mellitus. ADA recommended reference range Performed By: #### C BC, CMP #### [address] Potassium [Moles/Vol] 4.1 mmol/L Normal 3.5-5.[address] [facility] Comment on above: Performed By: #### C BC, CMP #### [address] Protein [Mass/Vol] 6.4 g/dL Normal 6.4-8.9 [facility] Comment on above: Performed By: #### C BC, CMP #### [facility] [address] [place] [address] [place] Sodium [Moles/Vol] 137 mmol/L Normal 136-145 [facility] Comment on above: Performed By: #### C BC, CMP #### [facility] [address] [place] [address] [place] Urea nitrogen [Mass/Vol] 17 mg/dL Normal 7-25 [facility] Comment on above: Performed By: #### C BC, CMP #### [facility] [address] Creatinine [Mass/volume] in Serum or PlasmaOrdered By: Regi Lowery on 01-08-2023 Creatinine [Mass/Vol] 0.91 mg/dL 0.70-1.[address] [facility] Dipstick and Microscopicon 0 01-08-2023 Appearance (U) Turbid Critically abnormal Clear [facility] Comment on above: Order Comment: Name Collection Type:: Clean-Voided Midstream Performed By: #### C UU, ADDONUAPLUS #### [place] [address] [place] Bacteria,Urine None Seen Normal None Seen [facility] Comment on above: Order Comment: Name Collection Type:: Clean-Voided Midstream Performed By: #### C UU, ADDONUAPLUS #### [facility] [address] [place] [address] [place] Bilirubin,Urine Negative Normal Negative [facility] Comment on above: Order Comment: Name Collection Type:: Clean-Voided Midstream Performed By: #### C UU, ADDONUAPLUS #### [place] [address] [place] Color (U) Dark Yellow Critically abnormal Yellow [facility] Comment on above: Order Comment: Name Collection Type:: Clean-Voided Midstream Performed By: #### C UU, ADDONUAPLUS #### [facility] [address] [place] [address] [place] Glucose Ql (U) Normal Normal Normal [facility] Comment on above: Order Comment: Name Collection Type:: Clean-Voided Midstream Performed By: #### C UU, ADDONUAPLUS #### [facility] [address] [place] [address] [place] Hyaline Casts,Urine 0-8 Normal 0-8 [facility] Comment on above: Order Comment: Name Collection Type:: Clean-Voided Midstream Result Comment: PERF ORMED BY: [place] [address] PATHOLOGIST [employer] REPAIRER JOS MOYA M.D. Performed By: #### C UU, ADDONUAPLUS #### [facility] [address] [place] [address] Ketones Ql (U) Trace High Negative [facility] Comment on above: Order Comment: Name Collection Type:: Clean-Voided Midstream Performed By: #### C UU, ADDONUAPLUS #### [address] Leukocyte esterase Test strip Ql (U) 2+ High Negative [facility] Comment on above: Order Comment: Name Collection Type:: Clean-Voided Midstream Performed By: #### C UU, ADDONUAPLUS #### [facility] [address] [place] [address] [place] Nitrite,Urine Negative Normal Negative [facility] Comment on above: Order Comment: Name Collection Type:: Clean-Voided Midstream Performed By: #### C UU, ADDONUAPLUS #### [facility] [address] [place] [address] [place] Occult Blood,Urine 3+ High Negative [facility] Comment on above: Order Comment: Name Collection Type:: Clean-Voided Midstream Result Comment: PERF ORMED BY: [place] [address] PATHOLOGIST [employer] REPAIRER JOS MOYA M.D. Performed By: #### C UU, ADDONUAPLUS #### [facility] [address] [place] [address] [place] pH (U) 6.0 [pH] Normal 5.0-9.0 [facility] Comment on above: Order Comment: Name Collection Type:: Clean-Voided Midstream Performed By: #### C UU, ADDONUAPLUS #### [facility] [address] [place] [address] Protein (U) [Mass/Vol] 100 mg/dL High Negative [facility] Comment on above: Order Comment: Name Collection Type:: Clean-Voided Midstream Performed By: #### C UU, ADDONUAPLUS #### [address] RBC,Urine Innumerable High 0-4 [facility] Comment on above: Order Comment: Name Collection Type:: Clean-Voided Midstream Performed By: #### C UU, ADDONUAPLUS #### [address] Specificy [place],Urine 1.029 Normal 1.001-1.03 0 [facility] Comment on above: Order Comment: Name Collection Type:: Clean-Voided Midstream Performed By: #### C UU, ADDONUAPLUS #### [address] Squamous Epithelial Cell,Urine 3-4 High 0-2 [facility] Comment on above: Order Comment: Name Collection Type:: Clean-Voided Midstream Performed By: #### C UU, ADDONUAPLUS #### [address] Urobilinogen,Urine Normal Normal Normal [facility] Comment on above: Order Comment: Name Collection Type:: Clean-Voided Midstream Performed By: #### C UU, ADDONUAPLUS #### [address] WBC,Urine 20-49 High 0-4 [facility] Comment on above: Order Comment: Name Collection Type:: Clean-Voided Midstream Performed By: #### C UU, ADDONUAPLUS #### [address] Eosinophils Auto (Bld) [#/Vo l]Ordered By: Regi Lowery on 01-08-2023 Eosinophils (Bld) [#/Vol] 0.1 10*3/uL 0.0-0.45 [facility] Eosinophils/100 WBC Auto (Bl d)Ordered By: Regi Lowery on 01-08-2023 Eosinophils/100 WBC (Bld) 2.4 % . [facility] Erythrocyte distribution wid th Auto (RBC) [Ratio]Ordered By: Regi Lowery on 01-08-2023 Erythrocyte distribution width (RBC) [Ratio] 13.1 % 12.0-14.8 [facility] Globulin Calc (S) [Mass/Vol] Ordered By: Regidiane Lowery on 01-08-2023 Globulin (S) [Mass/Vol] 2.4 g/dL [facility] Glucose [Mass/volume] in Ser um or PlasmaOrdered By: [facility]idiane [facility] on 01-08-[facility]23 Glucose [Mass/Vol] 100 mg/dL 70-100 [facility] Comment on above: ADA recommended refe rence rangeRandom Glucose Reference Range is dependent on time and content of last meal. Glucose of more than 200 mg/dL in a nonstressed, ambulatory subject supports the diagnosis of Diabetes Mellitus. Hematocrit Auto (Bld) [Volum e fraction]Ordered By: Regi Lowery on 01-08-2023 Hematocrit (Bld) [Volume fraction] 40.0 % 38.8-50.0 [facility] Hemoglobin [Mass/volume] in BloodOrdered By: Regi Lowery on 01-08-2023 Hemoglobin (Bld) [Mass/Vol] 13.5 g/dL 13.0-17.0 [facility] Ketones Auto test strip (U) [Mass/Vol]Ordered By: Regi Lowery on 01-08-2023 Ketones (U) [Mass/Vol] Trace Negative [facility] Laboratory - UrinalysisOrder ed By: Regi Lowery on 01-08-2023 Hyaline casts LM Ql (Urine sed) 0-8 [LPF] 0-8 [facility] Leukocytes [#/volume] correc juwan for nucleated erythrocytes in Blood by Automated counOrdered By: Regi Lowery on 01-08-2023 WBC corrected for nucl RBC Auto (Bld) [#/Vol] 5.3 10*3/uL 4.1-10.5 [facility] Lymphocytes Auto (Bld) [#/Vo l]Ordered By: Regi Bullimore on 01-08-2023 Lymphocytes (Bld) [#/Vol] 1.0 10*3/uL 1.00-4.8 [facility] Lymphocytes/100 WBC Auto (Bl d)Ordered By: Regi Bullimore on 01-08-2023 Lymphocytes/100 WBC (Bld) 19.0 % . [facility] MCH Auto (RBC) [Entitic mass ]Ordered By: Regi Crewsimore on 01-08-2023 MCH (RBC) [Entitic mass] 29.3 pg 27.5-35.2 [facility] MCHC Auto (RBC) [Mass/Vol]Or dered By: Regi Bullimore on 01-08-2023 MCHC (RBC) [Mass/Vol] 33.7 g/dL 32.5-35.[address] [facility] MCV Auto (RBC) [Entitic vol] Ordered By: Regi Bullimore on 01-08-2023 MCV (RBC) [Entitic vol] 86.9 fL 83.5-101 [facility] Monocyte distribution width [Entitic volume] in Blood by AutomatedOrdered By: Regi Crewsimore on 01-08-2023 Monocyte distribution width Auto (Bld) [Entitic vol] 17.49 % 0.00-20.00 [facility] Monocytes Auto (Bld) [#/Vol] Ordered By: Regi Bullimore on 01-08-2023 Monocytes (Bld) [#/Vol] 0.4 10*3/uL 0.0-0.8 [facility] Monocytes/100 WBC Auto (Bld) Ordered By: Regi Bullimore on 01-08-2023 Monocytes/100 WBC (Bld) 6.9 % . [facility] Neutrophils Auto (Bld) [#/Vo l]Ordered By: Regi Bullimore on 01-08-2023 Neutrophils (Bld) [#/Vol] 3.8 10*3/uL 1.8-7.7 [facility] Neutrophils/100 WBC Auto (Bl d)Ordered By: Regi Lowery on 01-08-2023 Neutrophils/100 WBC (Bld) 71.4 % . [facility] Nitrite Test strip Ql (U)Ord ered By: Regi Lowery on 01-08-2023 Nitrite Ql (U) Negative Negative [facility] No Panel InformationOrdered By: Regi Lowery on 01-08-2023 Estimated GFR (CKD-EPI) > 60.0 mL/Min [facility] Creatinine Clearance (Chem 95.04 [facility] Nucleated erythrocytes [Pres ence] in Blood by Automated countOrdered By: Regi Lowery on 01-08-2023 Nucleated RBC Auto Ql (Bld) 0.1 /100{WBC} 0-0.5 [facility] PROTIMEon 01-08-2023 INR Coag (PPP) [Relative time] 0.98 {INR} Normal [facility] Comment on above: Performed By: #### P T, PTT #### [facility] [address] [place] [address] Dr. Yary Vera INR GUIDELINES SEE BELOW Normal [facility] Comment on above: Result Comment: MURTAZA RED INR: 2.0 - 3.0 CONDITIONS NOT LISTED BELOW 2.5 - 3.5 FOR PROSTHETIC HEART VALVE REPLACEMENT 2.5 - 3.5 RECURRENT THROMBOSIS Performed By: #### P T, PTT #### [facility] [address] [place] [address] Dr. Yary Vera PT Coag (PPP) [Time] 10.4 s Normal 9.0-11.6 [facility] Comment on above: Performed By: #### P T, PTT #### [facility] [address] [place] [address] Dr. Yary Vera PTTon 01-08-2023 aPTT Coag (Bld) [Time] 26.5 s Normal 22.3-36.2 [facility] Comment on above: Performed By: #### P T, PTT #### [facility] [address] [place] [address] Dr. Yary Vera Platelet mean volume Auto (B ld) [Entitic vol]Ordered By: Regi Lowery on 01-08-2023 Platelet mean volume (Bld) [Entitic vol] 7.4 fL 6.6-10.1 [facility] Platelets Auto (Bld) [#/Vol] Ordered By: Regi Bullimore on 01-08-2023 Platelets (Bld) [#/Vol] 149 10*3/uL 150-450 [facility] Potassium [Moles/volume] in Serum or PlasmaOrdered By: Regi Bullimore on 01-08-2023 Potassium [Moles/Vol] 4.1 mmol/L 3.5-5.[address] [facility] Protein Auto test strip (U) [Mass/Vol]Ordered By: Regi Bullimore on 01-08-2023 Protein (U) [Mass/Vol] 100 mg/dL Negative [facility] Protein [Mass/volume] in Ser um or PlasmaOrdered By: Regi Bullimore on 01-08-2023 Protein [Mass/Vol] 6.4 g/dL 6.4-8.9 [facility] RBC Auto (Bld) [#/Vol]Ordere d By: Regi Bullimore on 01-08-2023 RBC (Bld) [#/Vol] 4.60 10*6/uL 3.90-5.60 [facility] Serum or plasma albumin/glob ulin mass ratioOrdered By: Regi Bullimore on 01-08-2023 Albumin/Globulin [Mass ratio] 1.7 {ratio} [facility] Serum or plasma anion gap de terminationOrdered By: Regi Bullimore on 01-08-2023 Anion gap [Moles/Vol] 7.6 mmol/L 6.0-15.[address] [facility] Sodium [Moles/volume] in Ser um or PlasmaOrdered By: Regi Bullimore on 01-08-2023 Sodium [Moles/Vol] 137 mmol/L 136-145 [facility] Specific gravity Auto test s trip (U) [Rel density]Ordered By: Regi Bullimore on 01-08-2023 Specific gravity (U) [Rel density] 1.029 1.001-1.03 0 [facility] Squamous epithelial cells de tection in urine sediment by light microscopyOrdered By: Regi Lowery on 01-08-2023 Epithelial cells.squamous LM Ql (Urine sed) 3-4 [HPF] 0-2 [facility] Urea nitrogen [Mass/volume] in Serum or PlasmaOrdered By: Regi Lowery on 01-08-2023 Urea nitrogen [Mass/Vol] 17 mg/dL 7-25 [facility] Urine Cultureon 01-08-2023 Bacteria identified Cx Nom (U) No Growth 2 Days PERFORMED BY: [place] [address] PATHOLOGIST [employer] REPA[employer] JOS MOYA M.D. [facility] Comment on above: Performed By: #### C UU, ADDONUAPLUS #### [address] Urine bacteria detection by automated methodOrdered By: Regi Lowery on 01-08-2023 Bacteria Auto Ql (U) None seen None Seen [facility] Urine clarity by refractomet ry automatedOrdered By: Regi Lowery on 01-08-2023 Clarity Refractometry automated (U) Turbid Clear [facility] Urine culture routineOrdered By: Regi Lowery on 01-08-2023 Bacteria identified Cx Nom (U) No Growth 2 Days [facility] Urine glucose measurement by automated test strip (mass/volume)Ordered By: Regi Lowery on 01-08-2023 Glucose Auto test strip (U) [Mass/Vol] Normal mg/dL Normal [facility] Urine hemoglobin detection b y automated test stripOrdered By: Regi Lowery on 01-08-2023 Hemoglobin Auto test strip Ql (U) 3+ Negative [facility] Urine leukocyte esterase det ection by automated test stripOrdered By: Regi Lowery on 01-08-2023 Leukocyte esterase Auto test strip Ql (U) 2+ Negative [facility] Urobilinogen Auto test strip (U) [Mass/Vol]Ordered By: Regi Lowery on 01-08-2023 Urobilinogen (U) [Mass/Vol] Normal mg/dL Normal [facility] WBC Auto (Bld) [#/Vol]Ordere d By: Regi Crewsimore on 01-08-2023 WBC (Bld) [#/Vol] 5.3 10*3/uL 4.1-10.5 [facility] pH Auto test strip (U)Ordere d By: Regi Deleonore on 01-08-2023 pH (U) 6.0 [pH] 5.0-9.0 [facility] Automated erythrocytes count in urine sediment (number/area)Ordered By: Carmen Cuello on 01-06-2023 RBC Auto (Urine sed) [#/Area] Innumerable [HPF] 0-4 [facility] Automated leukocytes count i n urine sediment (number/area)Ordered By: Carmen Cuello on 01-06-2023 WBC Auto (Urine sed) [#/Area] 10-19 [HPF] 0-4 [facility] Bilirubin Test strip Ql (U)O rdered By: Carmen Cuello on 01-06-2023 Bilirubin Ql (U) Negative Negative [facility] CT abdomen pelvis wo conon 0 01-06-2023 CT abdomen pelvis wo con [facility] [address] CT Scan Report Signed Patient: Carmen Jaramillo MR#: [id number] : 1960 Acct:[id number] Age/Sex: 62 / M ADM Date: 01/06/23 Loc: ER Room: Type: [facility] ER Attending Dr: Copies to: Carmen Cuello [...] Rudy Gutierrez M.D.01/06/2023 4:40 PM Dictation Location: [place] [address] Transcribed By: [facility] 01/06/23 1640 Dictated By: Rudy Gutierrez II, MD 01/06/23 1633 Signed By: 01/06/23 1640 Normal [facility] Color Auto (U)Ordered By: Kemi Cuello on 01-06-2023 Color (U) Yellow Yellow [facility] Dipstick and Microscopicon 0 01-06-2023 Appearance (U) Cloudy Critically abnormal Clear [facility] Comment on above: Order Comment: Name Collection Type:: Clean-Voided Midstream Performed By: #### C UU, ADDONUAPLUS #### [facility] [address] [place] [address] [place] Bacteria,Urine None Seen Normal None Seen [facility] Comment on above: Order Comment: Name Collection Type:: Clean-Voided Midstream Performed By: #### C UU, ADDONUAPLUS #### [facility] [address] [place] [address] [place] Bilirubin,Urine Negative Normal Negative [facility] Comment on above: Order Comment: Name Collection Type:: Clean-Voided Midstream Performed By: #### C UU, ADDONUAPLUS #### [facility] [address] [place] [address] [place] Color (U) Yellow Normal Yellow [facility] Comment on above: Order Comment: Name Collection Type:: Clean-Voided Midstream Performed By: #### C UU, ADDONUAPLUS #### [address] Glucose Ql (U) Normal Normal Normal [facility] Comment on above: Order Comment: Name Collection Type:: Clean-Voided Midstream Performed By: #### C UU, ADDONUAPLUS #### [place] [address] [place] Hyaline Casts,Urine 0-8 Normal 0-8 [facility] Comment on above: Order Comment: Name Collection Type:: Clean-Voided Midstream Result Comment: PERF ORMED BY: [place] [address] PATHOLOGIST [employer] REPAIRER JOS MOYA M.D. Performed By: #### C UU, ADDONUAPLUS #### [facility] [address] [place] [address] [place] Ketones Ql (U) Trace High Negative [facility] Comment on above: Order Comment: Name Collection Type:: Clean-Voided Midstream Performed By: #### C UU, ADDONUAPLUS #### [facility] [address] [place] [address] [place] Leukocyte esterase Test strip Ql (U) 2+ High Negative [facility] Comment on above: Order Comment: Name Collection Type:: Clean-Voided Midstream Performed By: #### C UU, ADDONUAPLUS #### [facility] [address] [place] [address] [place] Nitrite,Urine Negative Normal Negative [facility] Comment on above: Order Comment: Name Collection Type:: Clean-Voided Midstream Performed By: #### C UU, ADDONUAPLUS #### [address] Occult Blood,Urine 3+ High Negative [facility] Comment on above: Order Comment: Name Collection Type:: Clean-Voided Midstream Result Comment: PERF ORMED BY: [place] [address] PATHOLOGIST [employer] REPAIRER JOS MOYA M.D. Performed By: #### C UU, ADDONUAPLUS #### [address] pH (U) 5.5 [pH] Normal 5.0-9.0 [facility] Comment on above: Order Comment: Name Collection Type:: Clean-Voided Midstream Performed By: #### C UU, ADDONUAPLUS #### [facility] [address] [place] [address] Protein (U) [Mass/Vol] 100 mg/dL High Negative [facility] Comment on above: Order Comment: Name Collection Type:: Clean-Voided Midstream Performed By: #### C UU, ADDONUAPLUS #### [facility] [address] [place] [address] [place] RBC,Urine Innumerable High 0-4 [facility] Comment on above: Order Comment: Name Collection Type:: Clean-Voided Midstream Performed By: #### C UU, ADDONUAPLUS #### [facility] [address] [place] [address] [place] Specificy [place],Urine 1.016 Normal 1.001-1.03 0 [facility] Comment on above: Order Comment: Name Collection Type:: Clean-Voided Midstream Performed By: #### C UU, ADDONUAPLUS #### [facility] [address] [place] [address] [place] Squamous Epithelial Cell,Urine 1-2 Normal 0-2 [facility] Comment on above: Order Comment: Name Collection Type:: Clean-Voided Midstream Performed By: #### C UU, ADDONUAPLUS #### [facility] [address] [place] [address] Urobilinogen,Urine Normal Normal Normal [facility] Comment on above: Order Comment: Name Collection Type:: Clean-Voided Midstream Performed By: #### C UU, ADDONUAPLUS #### [facility] [address] [place] [address] WBC,Urine 10-19 High 0-4 [facility] Comment on above: Order Comment: Name Collection Type:: Clean-Voided Midstream Performed By: #### C UU, ADDONUAPLUS #### [facility] [address] [place] [address] Ketones Auto test strip (U) [Mass/Vol]Ordered By: Carmen Cuello on 01-06-2023 Ketones (U) [Mass/Vol] Trace Negative [facility] Laboratory - UrinalysisOrder ed By: Carmen Cuello on 01-06-2023 Hyaline casts LM Ql (Urine sed) 0-8 [LPF] 0-8 [facility] Nitrite Test strip Ql (U)Ord ered By: Carmen Cuello on 01-06-2023 Nitrite Ql (U) Negative Negative [facility] Protein Auto test strip (U) [Mass/Vol]Ordered By: Carmen Cuello on 01-06-2023 Protein (U) [Mass/Vol] 100 mg/dL Negative [facility] Specific gravity Auto test s trip (U) [Rel density]Ordered By: Carmen Cuello on 01-06-2023 Specific gravity (U) [Rel density] 1.016 1.001-1.03 0 [facility] Squamous epithelial cells de tection in urine sediment by light microscopyOrdered By: Carmen Cuello on 01-06-2023 Epithelial cells.squamous LM Ql (Urine sed) 1-2 [HPF] 0-2 [facility] Urine Cultureon 01-06-2023 Bacteria identified Cx Nom (U) <9,000 colonies/ml mixed bacterial skin contaminants 2 Days PERFORMED BY: [place] [address] PATHOLOGIST [employer]ER[employer] REPAIRER JOS MOYA M.D. Normal [facility] Comment on above: Performed By: #### C NANETTE HENRY #### [place] [id number] [facility] Urine bacteria detection by automated methodOrdered By: Carmen Cuello on 01-06-2023 Bacteria Auto Ql (U) None seen None Seen [facility] Urine clarity by refractomet ry automatedOrdered By: Carmen Cuello on 01-06-2023 Clarity Refractometry automated (U) Cloudy Clear [facility] Urine culture routineOrdered By: Carmen Cuello on 01-06-2023 Bacteria identified Cx Nom (U) 2 Days [facility] Urine glucose measurement by automated test strip (mass/volume)Ordered By: Carmen Cuello on 01-06-2023 Glucose Auto test strip (U) [Mass/Vol] Normal mg/dL Normal [facility] Urine hemoglobin detection b y automated test stripOrdered By: Carmen Cuello on 01-06-2023 Hemoglobin Auto test strip Ql (U) 3+ Negative [facility] Urine leukocyte esterase det ection by automated test stripOrdered By: Carmen Cuello on 01-06-2023 Leukocyte esterase Auto test strip Ql (U) 2+ Negative [facility] Urobilinogen Auto test strip (U) [Mass/Vol]Ordered By: Carmen Cuello on 01-06-2023 Urobilinogen (U) [Mass/Vol] Normal mg/dL Normal [facility] pH Auto test strip (U)Ordere d By: Carmen Cuello on 01-06-2023 pH (U) 5.5 [pH] 5.0-9.0 [facility] XR Abdomen Single View (KUB) *on [...] by Todd Nunez on 10/10/2021 1118 Normal [facility]tr [employer] Operator [employer] COVID Quick Testingon 2020 Result Negative [email or web address] Other Vital Signs Date Time Vital Sign Value Performing Clinician Facility 06-02-2024 08:52-0400 Body height 173.[address] [facility] 06-02-2024 08:52-0400 Body mass index (BMI) [Ratio] 30.7 kg/m2 [facility] 06-02-2024 08:52-0400 Body temperature 97.9 [degF] [facility] 06-02-2024 08:52-0400 Body weight 92.[address] [facility] 06-02-2024 08:52-0400 Diastolic blood pressure 64 mm[Hg] [facility] 06-02-2024 08:52-0400 Heart rate 74 /min [facility] 06-02-2024 08:52-0400 Respiratory rate 18 /min [facility] 06-02-2024 08:52-0400 SaO2% (BldA) [Mass fraction] 95 % [facility] 06-02-2024 08:52-0400 Systolic blood pressure 124 mm[Hg] [facility] 02-04-2024 08:23-0400 Body height 173.[address] [facility] 02-04-2024 08:23-0400 Body mass index (BMI) [Ratio] 30.3 kg/m2 [facility] 02-04-2024 08:23-0400 Body temperature 98.4 [degF] [facility] 02-04-2024 08:23-0400 Body weight 91.[address] [facility] 02-04-2024 08:23-0400 Diastolic blood pressure 72 mm[Hg] [facility] 02-04-2024 08:23-0400 Heart rate 70 /min [facility] 02-04-2024 08:23-0400 Respiratory rate 18 /min [facility] 02-04-2024 08:23-0400 SaO2% (BldA) [Mass fraction] 96 % [facility] 02-04-2024 08:23-0400 Systolic blood pressure 122 mm[Hg] [facility] 07-16-2023 11:15-0500 Body height 173.35 cm Noel Danita Other [email or web address] Other 07-16-2023 11:15-0500 Body mass index (BMI) [Ratio] 30.03 kg/m2 Noel Danita Other [email or web address] Other 07-16-2023 11:15-0500 Body temperature 97.1 [degF] Noel Danita Other [email or web address] Other 07-16-2023 11:15-0500 Body weight 90.27 kg Noel Danita Other [email or web address] Other 07-16-2023 11:15-0500 Diastolic blood pressure 70 mm[Hg] Noel Danita Other [email or web address] Other 07-16-2023 11:15-0500 Respiratory rate 18 /min Noel Danita Other [email or web address] Other 07-16-2023 11:15-0500 SaO2% (BldA) [Mass fraction] 98 % Noel Danita Other [email or web address] Other 07-16-2023 11:15-0500 Systolic blood pressure 120 mm[Hg] Noel Danita Other [email or web address] Other 06-26-2023 09:18-0400 Diastolic blood pressure 68 mm[Hg] DO Noel Danita Work Phone: [facility] 06-26-2023 09:18-0400 Heart rate 63 /min DO Noel Danita Work Phone: [facility] 06-26-2023 09:18-0400 Respiratory rate 16 /min DO Noel Danita Work Phone: [facility] 06-26-2023 09:18-0400 SaO2% (BldA) [Mass fraction] 98 % DO Noel Danita Work Phone: [facility] 06-26-2023 09:18-0400 Systolic blood pressure 108 mm[Hg] DO Noel Danita Work Phone: [facility] 06-26-2023 07:42-0400 Body height 172.72 cm DO Noel Danita Work Phone: [facility] 06-26-2023 07:42-0400 Body mass index (BMI) [Ratio] 30.4 kg/m2 DO Noel Danita Work Phone: [facility] 06-26-2023 07:42-0400 Body weight 91 kg DO Noel Danita Work Phone: [facility] 06-26-2023 06:28-0400 Body temperature 97.9 [degF] DO Noel Danita Work Phone: [facility] 01-08-2023 12:08-0400 Diastolic blood pressure 68 mm[Hg] DO Noel Danita Work Phone: [facility] 01-08-2023 12:08-0400 Heart rate 62 /min DO Noel Danita Work Phone: [facility] 01-08-2023 12:08-0400 Respiratory rate 18 /min DO Noel Danita Work Phone: [facility] 01-08-2023 12:08-0400 SaO2% (BldA) [Mass fraction] 96 % DO Noel Danita Work Phone: [facility] 01-08-2023 12:08-0400 Systolic blood pressure 126 mm[Hg] DO Noel Danita Work Phone: [facility] 01-08-2023 09:11-0400 Body height 175.26 cm DO Noel Danita Work Phone: [facility] 01-08-2023 09:11-0400 Body temperature 97.8 [degF] DO Noel Danita Work Phone: [facility] 01-08-2023 09:11-0400 Body weight 91 kg DO Noel Danita Work Phone: [facility] 01-06-2023 17:00-0400 Diastolic blood pressure 69 mm[Hg] DO Noel Danita Work Phone: [facility] 01-06-2023 17:00-0400 Heart rate 81 /min DO Noel Dainta Work Phone: [facility] 01-06-2023 17:00-0400 Respiratory rate 18 /min DO Noel Danita Work Phone: [facility] 01-06-2023 17:00-0400 SaO2% (BldA) [Mass fraction] 99 % DO Noel Danita Work Phone: [facility] 01-06-2023 17:00-0400 Systolic blood pressure 126 mm[Hg] DO Noel Danita Work Phone: [facility] 01-06-2023 15:57-0400 Body height 172.72 cm DO Noel Danita Work Phone: [facility] 01-06-2023 15:57-0400 Body temperature 98.2 [degF] DO Noel Danita Work Phone: [facility] 01-06-2023 15:57-0400 Body weight 88.8 kg DO Noel Danita Work Phone: [facility] Encounters Encounter Date Encounter Type Care Provider Facility Start: 11-03-2024 ambulatory Arslan Botello ty:[facility] [place] Start: 06-23-2024 ambulatory Arslan Botello ty:[id number] Start: 06-11-2024 End: 06-12-2024 ambulatory Arslan SHANE Facility:[id number] Start: 06-02-2024 End: 06-02-2024 ambulatory NOEL M DANITA Facility:[facility] Start: 06-02-2024 End: 06-02-2024 ambulatory [facility] Work Phone: Start: 06-02-2024 End: 06-02-2024 Patient encounter procedure [facility] Work Phone: Start: 02-04-2024 End: 02-04-2024 ambulatory [facility] Work Phone: Start: 02-04-2024 End: 02-04-2024 Patient encounter procedure [facility] Work Phone: Start: 12-24-2023 ambulatory Cj ZELAYA Facility :[facility] [place] Start: 10-29-2023 End: 10-29-2023 ambulatory Arslan SHANE Facility:[facility] [place] Start: 07-16-2023 End: 07-16-2023 ambulatory Noel Danita Other [facility] Other Start: 07-16-2023 Patient encounter procedure Noel Danita [facility] Start: 06-26-2023 End: 06-26-2023 ambulatory Arslan Shane Facility:[facility] Start: 06-26-2023 End: 06-26-2023 Admission to same day surgery center DO Noel Danita Work Phone: [facility] [place] Start: 06-26-2023 End: 06-26-2023 ambulatory DO Noel M. Danita Work Phone: [facility] Work Phone: Start: 06-26-2023 End: 06-26-2023 ambulatory Arslan SHANE [id number] Start: 06-18-2023 End: 06-18-2023 ambulatory Arslanlilibeth Shane Facility:[facility] Start: 06-18-2023 End: 06-18-2023 ambulatory DO Noel M. Danita Work Phone: [facility] Work Phone: Start: 06-18-2023 End: 06-18-2023 Patient encounter procedure DO Noel Danita Work Phone: [facility] Work Phone: Start: 03-26-2023 End: 03-26-2023 ambulatory Noel Carlos Danita Facility:[facility] Start: 03-26-2023 End: 03-26-2023 ambulatory DO Noel Howell. Danita Work Phone: [facility] Work Phone: Start: 03-26-2023 End: 03-26-2023 Patient encounter procedure DO Noel Danita Work Phone: [facility] [place] Work Phone: Start: 03-12-2023 End: 03-12-2023 ambulatory DO Noel Gonzalez Danita Work Phone: [facility] Work Phone: Start: 03-12-2023 End: 03-12-2023 Patient encounter procedure DO Noel Danita Work Phone: [facility] [place] Work Phone: Start: 01-11-[address] NOEL SAMAYOA Facil ity:[facility] Start: 01-08-2023 End: 01-08-[address] NOEL SAMAYOA Facility:[facility] Start: 01-08-2023 End: 01-08-2023 Emergency department patient visit Noel Samayoa Facility:[facility] Start: 01-08-2023 End: 01-08-2023 Emergency department patient visit DO Noelmalathi HicksDanita Work Phone: [facility] Work Phone: Start: 01-06-2023 End: 01-06-2023 Emergency department patient visit Carmen Cuello Facility:[facility] Start: 01-06-2023 End: 01-06-2023 Emergency department patient visit DO Noel Samayoa Work Phone: [facility] Work Phone: Start: 08-24-2021 End: 08-24-2021 ambulatory Anjel Rizzo Other [email or web address] Other Start: 08-24-2021 Office outpatient vi sit 5 minutes Anjel Rizzo [facility] [address] Procedures Date Procedure Procedure Detail Performing [...] Activity Detail Author Start: 02-04-2024 Patient referral [facility] Work Phone: Start: 06-26-2023 End: 06-26-2023 [facility] Start: 03-26-2023 [facility] Start: 01-08-2023 Bacteria identified in Urine by Culture [facility] Patient Education Kidney Stones (DC) [facility] Work Phone: Patient referral [facility] Work Phone: Supine abdominal X-ray [facility] Immunizations Immunization Date Immunization Notes Care Provider Fa john paul 07-16-2023 influenza, injectabl e, quadrivalent, contains preservative Noel Danita Other [employer] [facility] [employer] Other 07-16-2023 influenza, injectabl e, quadrivalent, preservative free [facility] 01-09-2021 COVID-19 Vaccine Pfi zer - Documentation Purposes Only Anjel Rizzo Other [facility] 12-16-2020 COVID-19 Vaccine Pfi zer - Documentation Purposes Only Anjel Rizzo Other [facility] 08-27-2019 influenza, seasonal, injectable Anjel Rizzo Other [facility] 05-29-2016 influenza, injectabl e, quadrivalent, preservative free [facility] 05-29-2016 influenza, injectabl e, quadrivalent, contains preservative Anjel Rizzo Other [facility] [employer] [employer] Other Payers Date Payer Category Payer Self-pay [id number] 1960 Unknown [id number] 2..840.1.451587.3.579. 2.593 1961 Unknown [id number] 2..840.1.028075.3.579. 2.593 1961 Unknown [id number] 2.16.840.1.369375.3.579. 2.727 1961 Unknown [id number] 2.16.840.1.006344.3.579. 2.727 1961 Unknown [id number] 2.16.840.1.462172.3.579. 2.727 1961 Unknown [id number] 2.16.840.1.323085.3.579. 2.727 1961 Unknown [id number] 2.16.840.1.945185.3.579. 2.727 1961 Unknown [id number] 2.16.840.1.371068.3.579. 2.727 1961 Unknown [id number] 2.16.840.1.403871.3.579. 2.727 1958 Blue Cross Blue Shield [id number] 2.16.840.1.361639.19 Private Health Insurance [facility] [id number] Unknown [id number] 2.16.840.1.622082.3.579. 2.531 Unknown [id number] 2.16.840.1.669816.3.579. 2.531 Unknown [id number] 2.16.840.1.867013.3.579. 2.531 Unknown [id number] 2.16.840.1.346612.3.579. 2.531 Unknown [id number] 2.16.840.1.447080.3.579. 2.531 Worker's Compensation [employer] Misc [id number] Worker's Compensation [facility] [id number] Social History Date Type Detail Facility Unknown if ever smoked [email or web address] Other Sex Assigned At Sex Assigned At Bir th [email or web address] Other Start: 01-08-2023 Tobacco smoking status NHIS Never smoked tobacco (finding) [facility] Start: 1960 Sex Assigned At Male [facility] Start: 06-18-2023 End: 06-02-2024 Tobacco smoking status NHIS Ex-smoker (finding) [facility] Medical Equipment Procedure Code Equipment Code Equipment Origin al Text Equipment Identifier Dates Cystoscopy, with ureteral calculus manipulation and stent placement Polymeric ureteral stent [id number] [facility] Start: 02-16-2021 Goals Date Patient Goal Desired [...] these instructions at home: Medicines ? Take fujq-nmj-tqdjkwl and prescription medicines only as told by [...] keep your pee pale yellow. ? Take cxom-dug-tlytsip or prescription medicines. ? Eat foods that [...] provider. Document Revised: 04/13/2023 Document Reviewed: 04/13/2023 [employer] Patient Education ? 2023 [employer] Laser Therapy for Kidney Stones Laser [...] including vitamins, herbs, eye drops, creams, and drev-arx-xxuttns medicines. ? Any problems you or family [...] Do not e (more content not included)... [facility] 07-16-2023 Evaluation note Encounter Date Diagnosis Assessment Notes Jun, Olecranon bursitis of left elbow (ICD-10 - M70.22) Jun, Flu vaccine need (ICD-10 - Z23) [email or web address] Other 12-29-2021 Evaluation note* Encounter Date Diagnosis [...] Patient care instructions given in writting by [facility] Care At Home document. [email or web address] Other 04-01-2020 History general Narrative - Reported* Type Description Date Medical History genital herpes Medical History hypercholesterolemia Medical History kidney stones Medical History left knee torn meniscus (11/2019) Surgical History Left Kidney stone 12/2015 Surgical History left knee scope with medial men isectomy, chondroplasty 04/2020 Hospitalization History Left Kidney stone [email or web address] Other 04-01-2020 History general Narrative - Reported* Type Description Date Medical History genital herpes Medical History hypercholesterolemia Medical History kidney stones Medical History left knee torn meniscus (11/2019) Surgical History Left Kidney stone 12/2015 Surgical History left knee scope with medial menisectomy, chondroplasty 04/2020 Surgical History LIthotripsy- left Kidney 3 Surgical History Left Kidney Laser Surgery 01/13 23 Hospitalization History Left Kidney stone [facility] Pulse [employer] Other Evaluation noteNo assessment information available [facility] Work Phone: Evaluation note* Diagnosis Onset Date Resolution Status Sleep apnea acute [facility] Work Phone: Evaluation note* Diagnosis Onset Date Resolution Status Left flank pain noneactive [facility] Work Phone: Hospital Discharge instructions Additional Instructions Go directly to the urology office [address] and [place] it is the building behind the hospital in the same building with [facility] dialysis Try not to stop do not eat or drink on your way to the hospital [phone] is the office phone number if you have any problems getting to the [facility] Work Phone: Hospital Discharge instructions [...] urine for 2 weeks. [ ][facility] Work Phone: Hospital Discharge instructionsAmbulatory Orders* Referral to Sleep Medicine Time Frame: 02/04/24, Location: None Selected [facility] Work Phone: Summary Purpose Family History [...] section and content) DATE CREATED AUTHOR 10/10/2021 [facility] dical Specialist DATE CREATED AUTHOR AUTHOR'S ORGANIZ ATION 01/10/2023 [facility] DATE CREATED AUTHOR AUTHOR'S ORGANIZ ATION 07/25/2023 [facility] DATE CREATED AUTHOR AUTHOR'S ORGANIZ ATION 06/19/2024 [facility] REASON FOR VISIT (unrecogniz ed [...] DO Primary Care Provider Active Regi Lowery [facility] Emergency Provider Active Team Status: Inactive [...] BE BASED ON THE PRIMARY CLINICAL RECORDS. [facility] [employer] [facility]. provides no warranty or guarantee of the accuracy or completeness of information in this document.
[2024-06-30 07:41] VITALS: BP 111/71; PULSE 60; TEMP 36.2; O2SAT 93
[2024-06-30] MEDS: LIDOCAINE 2% JELLY 10 ML UR (07:59)
--- NOTE | 2024-06-30 08:09 | PM.URSON ---
Urology Surgery Operative Note Operative Note Procedure Date: 06/30/24 Time Out Performed: yes Pre-op Diagnosis: Status post ureteroscopic stone manipulation and left stent placement Post-op Diagnosis: same as pre-op Procedures performed: 1. Cystoscopy. 2. Left stent removal Anesthesia: local Primary Surgeon: Arslan Shane Complications: None Estimated blood loss (mL): 0 Findings: Mildly encrusted stent Specimens: None Drains: None Indications for Procedures: This gentleman had left renal calculi ablated with thulium laser. He also was stented at that time. He now presents for cystoscopy and left stent removal. He has signed an informed consent after risks were explained. Detailed description of Procedure: The patient was kept on the [place] bed and brought in the endoscopy suite. He was in the supine position. Timeout was done by all parties in the room. Genitalia were sterilely prepped and draped in the usual fashion. 2% lidocaine was passed per urethra. I then passed a flexible cystoscope per urethra and into the bladder. Anterior urethra was normal. Prostatic urethra showed bilobar obstruction. Panendoscopy in the bladder revealed that the stent was mildly encrusted. A flexible grasping forceps was passed through the scope. The stent was grasped. The scope and stent were then removed without difficulty. He was then discharged to home. The plan is that we will repeat the full stone metabolic workup and follow-up in 3 months to review the data.
[2024-06-30 09:17] VITALS: BP 123/86; BP 125/82; PULSE 61; PULSE 64; O2SAT 16; O2SAT 20
== END 2024-06-30 08:16 | disposition home or self-care (01) ==
PROVIDERS: PCP Family Medicine; Visit Provider Urology
PROC: (CPT 52310; principal; 2024-06-30 08:00)
DX: Z46.6 Encounter for fitting and adjustment of urinary device (principal); Z87.442 Personal history of urinary calculi
CPT/HCPCS: 52310